=== PATIENT | male | born 1980 | race Caucasian/White ===

== ENCOUNTER 2019-07-05 13:42 | Day surgery (SDC) | payer OTHER ==
[2019-07-05] MEDS ORDERED: Marcaine 0.5% SDV 10 ML IJ ONE (13:43)
[2019-07-05] MEDS ORDERED: Depo-Medrol 40 MG/ML IM ONE (13:43)
[2019-07-05] MEDS ORDERED: Xylocaine 1% Vial 30 ML PF IJ ONE (13:43)
--- NOTE | 2019-07-05 15:11 | XRAY ---
Indication: Right SI joint injection. Intraoperative fluoroscopy was provided for 10 seconds. 2 digital spot images submitted for interpretation demonstrate posterior needle tip projecting over the inferior right SI joint. Correlate with intraoperative findings/report.
--- NOTE | 2019-07-05 15:41 | XRAY ---
10 seconds fluoroscopy time in surgery for right SI joint injection.
== END 2019-07-05 14:50 | disposition home or self-care (01) ==
LOC: SDC-PAIN 13:42
PROVIDERS: ATTEND Psychiatry & Neurology Pain Medicine
DX: M46.1 Sacroiliitis, not elsewhere classified (principal); I10 Essential (primary) hypertension; F41.9 Anxiety disorder, unspecified
CPT/HCPCS: 27096; 72020; 77002; J1030; J2001; G0260

== ENCOUNTER 2019-08-30 15:29 | Day surgery (SDC) | payer OTHER ==
[2019-08-30] MEDS ORDERED: Xylocaine 1% Vial 30 ML PF IJ ONE (15:30)
[2019-08-30] MEDS ORDERED: Marcaine 0.5% SDV 10 ML IJ ONE (15:30)
[2019-08-30] MEDS ORDERED: Depo-Medrol 40 MG/ML IM ONE (15:30)
--- NOTE | 2019-08-30 17:08 | XRAY ---
Indication: Right hip injection. Intraoperative fluoroscopy was provided for 41 seconds. 2 digital spot images submitted for interpretation demonstrates needle tip just lateral to the right femur head. Small amount of contrast injected for needle tip placement. Correlate with intraoperative findings/report.
--- NOTE | 2019-08-30 17:11 | XRAY ---
41 seconds of fluoroscopy was used in surgery for a right intra-articular hip injection.
== END 2019-08-30 16:47 | disposition home or self-care (01) ==
LOC: SDC-PAIN 15:29
PROVIDERS: ATTEND Psychiatry & Neurology Pain Medicine
DX: M16.11 Unilateral primary osteoarthritis, right hip (principal); I10 Essential (primary) hypertension; D16.8 Benign neoplasm of pelvic bones, sacrum and coccyx; F41.9 Anxiety disorder, unspecified; Z79.899 Other long term (current) drug therapy
CPT/HCPCS: 20610; 73501; 77002; J1030; J2001; Q9966

== ENCOUNTER 2019-11-01 10:42 | Day surgery (SDC) | payer OTHER ==
[2019-11-01] MEDS ORDERED: Xylocaine-Mpf 2% 5 Ml Vial IJ ONE (10:43)
[2019-11-01] MEDS ORDERED: Depo-Medrol 40 MG/ML IM ONE (10:43)
[2019-11-01] MEDS ORDERED: DIPRIVAN 200 MG/20 ML IV ONE (11:15)
[2019-11-01] MEDS ORDERED: Ketamine HCl 50 MG/ML ONE (11:15)
[2019-11-01] MEDS ORDERED: Lactated Ringers 1,000 ML IV ONE (13:10)
--- NOTE | 2019-11-01 13:20 | XRAY ---
Indication: Right L4-S1 MBB. Intraoperative fluoroscopy was provided for 5 seconds. Single digital spot image submitted for interpretation demonstrates posterior needle tips projecting over the expected course of the right L4-S1 nerve roots. Correlate with intraoperative findings/report.
--- NOTE | 2019-11-01 13:43 | XRAY ---
5 seconds fluoroscopy time in surgery for right L4-S1 MBB.
== END 2019-11-01 11:45 | disposition home or self-care (01) ==
LOC: SDC-PAIN 10:42
PROVIDERS: ATTEND Psychiatry & Neurology Pain Medicine
DX: M47.816 Spondylosis without myelopathy or radiculopathy, lumbar region (principal); M47.817 Spondylosis without myelopathy or radiculopathy, lumbosacral region; I10 Essential (primary) hypertension; D16.8 Benign neoplasm of pelvic bones, sacrum and coccyx; F41.9 Anxiety disorder, unspecified
CPT/HCPCS: 64493; 64494; 72020; 77002; J1030; J2704

== ENCOUNTER 2019-12-13 11:59 | Day surgery (SDC) | payer OTHER ==
[2019-12-13] MEDS ORDERED: Depo-Medrol 40 MG/ML IM ONE (12:00)
[2019-12-13] MEDS ORDERED: Marcaine 0.5% SDV 10 ML IM ONE (12:00)
[2019-12-13] MEDS ORDERED: Ketamine HCl 50 MG/ML ONE (12:51)
[2019-12-13] MEDS ORDERED: DIPRIVAN 200 MG/20 ML IV ONE (12:51)
[2019-12-13] MEDS ORDERED: Lactated Ringers 1,000 ML IV ONE (13:44)
--- NOTE | 2019-12-13 15:11 | XRAY ---
5 seconds fluoroscopy time in surgery for right L4-S1 MBB.
== END 2019-12-13 13:17 | disposition home or self-care (01) ==
LOC: SDC-PAIN 11:59
PROVIDERS: ATTEND Psychiatry & Neurology Pain Medicine
DX: M47.816 Spondylosis without myelopathy or radiculopathy, lumbar region (principal); M47.817 Spondylosis without myelopathy or radiculopathy, lumbosacral region; I10 Essential (primary) hypertension; F41.9 Anxiety disorder, unspecified; Z79.899 Other long term (current) drug therapy
CPT/HCPCS: 64493; 64494; 72020; 77002; J1030; J2704

== ENCOUNTER 2020-03-27 10:29 | Day surgery (SDC) | payer OTHER ==
[~2020-03-27 10:29] MED LIST: DIPRIVAN 200 MG/20 ML IV ONE; Ketamine HCl 50 MG/ML ONE
[2020-03-27] MEDS ORDERED: Xylocaine 1% Vial 30 ML PF IJ ONE (10:30)
[2020-03-27] MEDS ORDERED: Depo-Medrol 40 MG/ML IM ONE (10:30)
[2020-03-27] MEDS ORDERED: Marcaine 0.5% SDV 10 ML IJ ONE (10:30)
--- NOTE | 2020-03-27 12:35 | XRAY ---
Indication: Right L4-S1 RFA. Intraoperative fluoroscopy was provided for 15 seconds. 3 digital spot images submitted for interpretation demonstrates posterior needle tips projecting over the expected course of the right L4-S1 nerve roots. Correlate with intraoperative findings/report.
--- NOTE | 2020-03-27 12:39 | XRAY ---
15 seconds fluoroscopy time in surgery for right L4-S1 RFA.
[2020-03-27] MEDS ORDERED: Lactated Ringers 1,000 ML IV ONE (16:36)
== END 2020-03-27 12:17 | disposition home or self-care (01) ==
LOC: SDC-PAIN 10:29
PROVIDERS: ATTEND Psychiatry & Neurology Pain Medicine
DX: M47.816 Spondylosis without myelopathy or radiculopathy, lumbar region (principal); D16.8 Benign neoplasm of pelvic bones, sacrum and coccyx; I10 Essential (primary) hypertension; F41.9 Anxiety disorder, unspecified; Z79.899 Other long term (current) drug therapy
CPT/HCPCS: 64635; 64636; 72100; 77002; J1030; J2001; J2704

== ENCOUNTER 2022-04-16 09:31 | Emergency (ER) | payer OTHER ==
[2022-04-16] MEDS ORDERED: PROTONIX 40 MG IV IV ONE ×2 (09:49→09:57)
[2022-04-16] MEDS ORDERED: Sodium Chloride 0.9% 1000 ML 1,000 ML IV STA (09:49)
[2022-04-16] MEDS ORDERED: GI COCKTAIL 45 ML (Maalox/Lidocaine) PO ONE (09:49)
[2022-04-16] MEDS ORDERED: MORPHINE SULFATE 4 MG INJ IV ONE (09:49)
[2022-04-16] MEDS ORDERED: Zofran 4 MG/2 ML VIAL IV ONE (09:51)
[2022-04-16] MEDS ORDERED: MORPHINE SULFATE 4 MG INJ ONE (09:57)
[2022-04-16] MEDS ORDERED: Zofran 4 MG/2 ML VIAL ONE (09:57)
[2022-04-16] MEDS ORDERED: MAALOX ES 30 ML UNIT DOSE ONE (09:58)
[2022-04-16] MEDS ORDERED: XYLOCAINE VISCOUS 2% 15 ML CUP ONE (09:58)
[2022-04-16] MEDS ORDERED: Sodium Chloride 0.9% 1000 ML 1,000 ML ONE (09:58)
--- NOTE | 2022-04-16 10:00 | ERPHSYRPT ---
- History of Present Illness Time Seen by Provider: 04/16/22 09:49 Historian: patient Exam Limitations: no limitations Patient Subjective Stated Complaint: PT states "I was at work this morning around 430 am and my chest started to hurt and I am not getting any better. The pain is getting worse and worse." Triage Nursing Assessment: PT presented alert and oriented X 3, skin pwd Pt ambulates with an upright steady gait, able to speak in clear full sentences. Pt in no apparent respiratory distress. Pt keeps lifting his legs up to his chest to relieve pressure. Physician History: 41 years old male with history of hypertension presented to the ER with chief complaint of epigastric pain sudden onset around 4:30 in the morning and gradually worsening, constant, nonradiating and having some retrosternal burning sensation as well. Patient reports associated nausea and 2-3 episodes of nonprojectile, nonbilious vomiting without hematemesis. Denies any chest pain or shortness of breath otherwise. Patient reports he had a similar episode last week when he was on vacation and had some kind of drink which made it come on. Last night he had a [place] food, gave him Gas-X and Nexium which did not make him feel much better. Timing/Duration: hour(s) (5), constant, gradual onset, worse Activities at Onset: activity Quality: burning, dullness Abdominal Pain Onset Location: epigastric Pain Radiation: chest Severity of Pain-Max: moderate Severity of Pain-Current: moderate Modifying Factors: Improves With: nothing Associated Symptoms: nausea, vomiting Previous symptoms: same symptoms as today Allergies/Adverse Reactions: No Known Drug Allergies Allergy (Verified 04/16/22 09:38) Home Medications: Lisinopril/Hydrochlorothiazide [Lisinopril-Hctz 20-25 mg Tab] 1 each PO DAILY 04/16/22 [History] Sertraline HCl 50 mg [Zoloft 50 mg Tablet] 50 mg PO DAILY 04/16/22 [History] Hx Tetanus, Diphtheria Vaccination/Date Given: No Hx Influenza Vaccination/Date Given: No Hx Pneumococcal Vaccination/Date Given: No Immunizations Up to Date: Yes Travel Risk - International Travel Have you traveled outside of the country in past 3 weeks: No - Coronavirus Screening Are you exhibiting any of the following symptoms?: No Close contact with a COVID-19 positive Pt in past 14-21 Days: No - Vaccine Status Have you recieved a Covid-19 vaccination: Yes Enrollment Manager: Pfizer - Vaccination Dates Date of 2cond Vaccination (if applicable): 2020 - Review of Systems Constitutional: No Symptoms Eyes: No Symptoms Ears, Nose, & Throat: No Symptoms Respiratory: No Symptoms Cardiac: Chest Pain Abdominal/Gastrointestinal: Abdominal Pain, Nausea, Vomiting Genitourinary Symptoms: No Symptoms Musculoskeletal: No Symptoms Skin: No Symptoms Neurological: No Symptoms Psychological: Anxiety Endocrine: No Symptoms Hematologic/Lymphatic: No Symptoms Immunological/Allergic: No Symptoms - Past Medical History Pertinent Past Medical History: Yes Neurological History: No Pertinent History Cardiac History: Hypertension Respiratory History: No Pertinent History Endocrine Medical History: No Pertinent History Musculoskeletal History: Osteoarthritis Other Medical History: HX LEFT ROTATOR CUFF REPAIR 2020, OSTEOCHONDROMA REMOVAL RIGHT FEMUR PROXIMAL 2018 - Past Surgical History Past Surgical History: Yes Other Surgical History: l4 l5 fusion. right hip. bicep and tendon in shoulder. - Social History Smoking Status: Never smoker Exposure to second hand smoke: No Drug Use: none Patient Lives Alone: No - Nursing Vital Signs Nursing Vital Signs: Initial Vital Signs Temperature 98.5 F 04/16/22 09:32 Pulse Rate 74 04/16/22 09:32 Respiratory Rate 20 04/16/22 09:32 Blood Pressure 183/117 04/16/22 09:32 O2 Sat by Pulse Oximetry 100 04/16/22 09:32 Pain Scale Pain Intensity 2 - Physical Exam General Appearance: no apparent distress Eye Exam: PERRL/EOMI Ears, Nose, Throat Exam: normal ENT inspection Neck Exam: normal inspection, full range of motion Respiratory Exam: normal breath sounds, lungs clear Cardiovascular Exam: regular rate/rhythm, normal heart sounds Gastrointestinal/Abdomen Exam: soft, normal bowel sounds, tenderness (Epigastrium/right upper quadrant), guarding, No rebound Back Exam: normal inspection, normal range of motion, No CVA tenderness Extremity Exam: normal inspection, normal range of motion Neurologic Exam: alert, oriented x 3, cooperative Skin Exam: normal color SpO2 Interpretation: normal SpO2: 100 O2 Delivery: Room Air Ordered Tests: Active Orders 24 hr Category Date Time Status EKG-ER Only STAT Care 04/16/22 09:49 Completed IV Insertion STAT Care 04/16/22 09:49 Completed NPO (ED) STAT Care 04/16/22 09:49 Completed ABDOMEN AND PELVIS W/0 CONTRAS [CT] Stat Exams 04/16/22 09:50 Completed CHEST 1 VIEW (PORTABLE) Stat Exams 04/16/22 09:50 Completed AMYLASE Stat Lab 04/16/22 09:45 Completed CBC W DIFF Stat Lab 04/16/22 09:45 Completed CMP Stat Lab 04/16/22 09:45 Completed LIPASE Stat Lab 04/16/22 09:45 Completed TROPONIN Q3H Lab 04/16/22 09:45 Completed TROPONIN Q3H Lab 04/16/22 12:00 Completed UA W/RFX CULTURE Stat Lab 04/16/22 11:52 Completed Medication Summary Discontinued Medications Generic Name Dose Route Start Last Admin Trade Name Freq PRN Reason Stop Dose Admin Al Hydrox/Mg Hydrox/Simethicone Confirm 04/16/22 09:58 Mag Hydrox/Al Hydrox/Simeth 30 Ml Udcup Administered 04/16/22 09:59 Dose 30 ml .ROUTE .STK-MED ONE Sodium Chloride 1,000 mls @ 999 mls/hr 04/16/22 09:49 04/16/22 11:42 Sodium Chloride 0.9% 1000 Ml IV 04/16/22 10:49 Infused .Q1H1M STA Infusion Sodium Chloride Confirm 04/16/22 09:58 Sodium Chloride 0.9% 1000 Ml Administered 04/16/22 09:59 Dose 1,000 mls @ ud .ROUTE .STK-MED ONE Lidocaine HCl Confirm 04/16/22 09:58 Lidocaine Hcl 2% Viscous 15 Ml Udcup Administered 04/16/22 09:59 Dose 15 ml .ROUTE .STK-MED ONE Magnesium Hydroxide 45 ml 04/16/22 09:49 04/16/22 10:00 Mag Hydrx/Alum Hyd/Simeth/Lido 45 Ml Bottle PO 04/16/22 09:50 45 ml STAT ONE Administration Morphine Sulfate 4 mg 04/16/22 09:49 04/16/22 10:00 Morphine Sulfate 4 Mg/Ml Injection IV 04/16/22 09:50 4 mg STAT ONE Administration Morphine Sulfate Confirm 04/16/22 09:57 Morphine Sulfate 4 Mg/Ml Injection Administered 04/16/22 09:58 Dose 4 mg .ROUTE .STK-MED ONE Ondansetron HCl 4 mg 04/16/22 09:51 04/16/22 10:00 Ondansetron Hcl 4 Mg/2 Ml Vial IV 04/16/22 09:52 4 mg STAT ONE Administration Ondansetron HCl Confirm 04/16/22 09:57 Ondansetron Hcl 4 Mg/2 Ml Vial Administered 04/16/22 09:58 Dose 4 mg .ROUTE .STK-MED ONE Pantoprazole Sodium 40 mg 04/16/22 09:49 04/16/22 10:00 Pantoprazole 40 Mg Vial IV 04/16/22 09:50 40 mg STAT ONE Administration Pantoprazole Sodium Confirm 04/16/22 09:57 Pantoprazole 40 Mg Vial Administered 04/16/22 09:58 Dose 40 mg IV .STK-MED ONE Lab/Rad Data: Laboratory Result Diagrams 04/16/22 09:45 04/16/22 09:45 Laboratory Results 04/16/22 04/16/22 04/16/22 Range/Units 12:00 11:52 09:45 WBC (4.0-10.5) x10^3/uL RBC (4.1-5.6) x10^6/uL Hgb (12.5-18.0) g/dL Hct (42-50) % MCV (78-100) fL MCH (26-32) pg MCHC (32-36) g/dL RDW (11.5-14.0) % Plt Count (150-450) x10^3/uL MPV (7.5-11.0) fL Gran % (36.0-66.0) % Immature Gran % (Auto) (0.00-0.4) % Nucleat RBC Rel Count (0.00-0.1) % Eos # (Auto) (0-0.5) x10^3/uL Immature Gran # (Auto) (0.00-0.03) x10^3u/L Absolute Lymphs (auto) (1.0-4.6) x10^3/uL Absolute Monos (auto) (0.0-1.3) x10^3/uL Absolute Nucleated RBC (0.00-0.01) x10^3u/L Lymphocytes % (24.0-44.0) % Monocytes % (0.0-12.0) % Eosinophils % (0.00-5.0) % Basophils % (0.0-0.4) % Absolute Granulocytes (1.4-6.9) x10^3/uL Basophils # (0-0.4) x10^3/uL Sodium (137-145) mmol/L Potassium (3.5-5.1) mmol/L Chloride (98-107) mmol/L Carbon Dioxide (22-30) mmol/L Anion Gap (5-15) MEQ/L BUN (9-20) mg/dL Creatinine (0.66-1.25) mg/dL Estimated GFR ML/MIN Glucose (74-106) mg/dL Calcium (8.4-10.2) mg/dL Total Bilirubin (0.2-1.3) mg/dL AST (17-59) U/L ALT (0-50) U/L Alkaline Phosphatase (38-126) U/L Troponin I < 0.012 < 0.012 (0.000-0.034) ng/mL Serum Total Protein (6.3-8.2) g/dL Albumin (3.5-5.0) g/dL Amylase (30-110) U/L Lipase (23-300) U/L Urinalys Dipstick Clnc MAIN LAB Urine Color YELLOW (YELLOW) Urine Appearance CLEAR (CLEAR) Urine pH 6.5 (5-6) Ur Specific Rowe 1.010 (1.005-1.025) POC Urine Protein Conf NEGATIVE (Negative) Urine Ketones NEGATIVE (NEGATIVE) Urine Nitrite NEGATIVE (NEGATIVE) Urine Bilirubin NEGATIVE (NEGATIVE) Urine Urobilinogen 0.2 (0-1) mg/dL Urine Leukocytes NEGATIVE (NEGATIVE) Urine WBC (Auto) 0-2 (0-5) /HPF Urine RBC (Auto) 0-2 (0-2) /HPF Urine RBC TRACE-INTACT (0-5) Chiki/ul Urine Mucus (Auto) SLIGHT (NEGATIVE) /HPF Ur Culture Indicated? NO Urine Glucose NEGATIVE (NEGATIVE) mg/dL 04/16/22 04/16/22 Range/Units 09:45 09:45 WBC 13.7 H (4.0-10.5) x10^3/uL RBC 4.98 (4.1-5.6) x10^6/uL Hgb 15.7 (12.5-18.0) g/dL Hct 45.4 (42-50) % MCV 91.2 (78-100) fL MCH 31.5 (26-32) pg MCHC 34.6 (32-36) g/dL RDW 12.8 (11.5-14.0) % Plt Count 319 (150-450) x10^3/uL MPV 8.7 (7.5-11.0) fL Gran % 60.1 (36.0-66.0) % Immature Gran % (Auto) 0.6 H (0.00-0.4) % Nucleat RBC Rel Count 0.0 (0.00-0.1) % Eos # (Auto) 0.25 (0-0.5) x10^3/uL Immature Gran # (Auto) 0.08 H (0.00-0.03) x10^3u/L Absolute Lymphs (auto) 3.79 (1.0-4.6) x10^3/uL Absolute Monos (auto) 1.24 (0.0-1.3) x10^3/uL Absolute Nucleated RBC 0.00 (0.00-0.01) x10^3u/L Lymphocytes % 27.7 (24.0-44.0) % Monocytes % 9.1 (0.0-12.0) % Eosinophils % 1.8 (0.00-5.0) % Basophils % 0.7 (0.0-0.4) % Absolute Granulocytes 8.21 H (1.4-6.9) x10^3/uL Basophils # 0.10 (0-0.4) x10^3/uL Sodium 135 L (137-145) mmol/L Potassium 3.7 (3.5-5.1) mmol/L Chloride 98 (98-107) mmol/L Carbon Dioxide 26 (22-30) mmol/L Anion Gap 14.1 (5-15) MEQ/L BUN 19 (9-20) mg/dL Creatinine 1.15 (0.66-1.25) mg/dL Estimated GFR > 60.0 ML/MIN Glucose 124 H (74-106) mg/dL Calcium 10.7 H (8.4-10.2) mg/dL Total Bilirubin 1.00 (0.2-1.3) mg/dL AST 81 H (17-59) U/L ALT 124 H (0-50) U/L Alkaline Phosphatase 102 (38-126) U/L Troponin I (0.000-0.034) ng/mL Serum Total Protein 7.9 (6.3-8.2) g/dL Albumin 4.6 (3.5-5.0) g/dL Amylase 79 (30-110) U/L Lipase 110 (23-300) U/L Urinalys Dipstick Clnc Urine Color (YELLOW) Urine Appearance (CLEAR) Urine pH (5-6) Ur Specific Rowe (1.005-1.025) POC Urine Protein Conf (Negative) Urine Ketones (NEGATIVE) Urine Nitrite (NEGATIVE) Urine Bilirubin (NEGATIVE) Urine Urobilinogen (0-1) mg/dL Urine Leukocytes (NEGATIVE) Urine WBC (Auto) (0-5) /HPF Urine RBC (Auto) (0-2) /HPF Urine RBC (0-5) Chiki/ul Urine Mucus (Auto) (NEGATIVE) /HPF Ur Culture Indicated? Urine Glucose (NEGATIVE) mg/dL - Progress Progress: improved, re-examined Progress Note: 04/16/22 12:47 41 years old is evaluated for epigastric pain. EKG showed normal sinus rhythm without any acute ischemic changes given GI cocktail, Protonix along with morphine, on reevaluation pain is completely resolved. No peritoneal signs. Work-up showed white count of 13 and chemistry showing some hyper calcium [place] a nd mildly elevated liver enzymes CT abdomen pelvis finding consistent with hepatomegaly. Negative troponin x2. Low risk for CAD, do not think needs any other further work-up in the ER, needs to be admitted. Pain seems to be related to gastritis/acid reflux and will put him on Protonix and Carafate, outpatient follow-up recommended. Discussed signs symptoms of worsening needing return to ER which he seems understanding Counseled pt/family regarding: lab results, diagnosis, need for follow-up, rad results - Departure Departure Disposition: Home Clinical Impression: GERD with esophagitis Condition: Stable Critical Care Time: No Referrals: DENAE MATTA MD [CONSULTING PHYSICIAN] - Follow Up with PCP/3 days ANTONI AGUILAR [CONSULTING PHYSICIAN] - Follow up/PCP as directed (Call for appointment for reevaluation) Instructions: Angina (DC), Acid Reflux and Gastroesophageal Reflux Disease in Adults Prescriptions: Sucralfate 1 gm [Carafate 1 GM] 1 g PO ACHS #20 tablet PANTOPRAZOLE 40 mg Tablet [Protonix 40MG Tablet] 40 mg PO QAM #30 tab
[2022-04-16 10:06] LABS: Absolute Neutrophil Ct (ANC) 8.21 x10^3/uL (1.4-6.9); Eosinophil % 1.8 % (0.00-5.0); Eosinophil (Absolute #) 0.25 x10^3/uL (0-0.5); Hematocrit 45.4 % (42-50); Hemoglobin 15.7 g/dL (12.5-18.0); Lymphocyte (Absolute #) 3.79 x10^3/uL (1.0-4.6); Lymphocytes % 27.7 % (24.0-44.0); Mean Cell Volume 91.2 fL (78-100); Mean Corpuscular Hemoglobin 31.5 pg (26-32); Mean Corpuscular Hgb Concent. 34.6 g/dL (32-36); Mean Platelet Volume 8.7 fL (7.5-11.0); Monocyte (Absolute #) 1.24 x10^3/uL (0.0-1.3); Monocytes % 9.1 % (0.0-12.0); Neutrophil % 60.1 % (36.0-66.0); Platelet Count 319 x10^3/uL (150-450); Red Blood Count 4.98 x10^6/uL (4.1-5.6); Red Cell Distribution Width 12.8 % (11.5-14.0); White Blood Count 13.7 x10^3/uL (4.0-10.5)
[2022-04-16 10:18] LABS: ALBUMIN 4.6 g/dL (3.5-5.0); ALKALINE PHOSPHATASE 102 U/L (38-126); AMYLASE 79 U/L (30-110); ANION GAP 14.1 MEQ/L (5-15); BLOOD UREA NITROGEN 19 mg/dL (9-20); CHLORIDE 98 mmol/L (98-107); Calcium 10.7 mg/dL (8.4-10.2); Carbon Dioxide 26 mmol/L (22-30); Creatinine 1 1.15 mg/dL (0.66-1.25); EST GLOMERULAR FILTRATION RATE > 60.0 ML/MIN; Glucose 124 mg/dL (74-106); LIPASE 110 U/L (23-300); Potassium 3.7 mmol/L (3.5-5.1); SGOT/AST 81 U/L (17-59); SGPT/ALT 124 U/L (0-50); SODIUM 135 mmol/L (137-145); Total Protein 7.9 g/dL (6.3-8.2)
--- NOTE | 2022-04-16 10:53 | XRAY ---
Indication: Abdomen pain, vomiting, and diarrhea. Multiple contiguous axial images obtained through the abdomen and pelvis without contrast. Comparison: None Lung bases clear. Heart not enlarged. Noncontrasted stomach and bowel loops appear nonobstructed with normal appendix. Mild scattered colonic diverticulosis without diverticulitis. No free fluid/air. Diffuse fatty hepatomegaly measuring 20.9 cm. Remaining liver, gallbladder, pancreas, spleen, adrenal glands, kidneys, ureters, bladder, and aorta are unremarkable for noncontrast exam. Osseous structures intact with L4-L5 fusion with intact bilateral posterior fusion hardware/intervertebral spacer. No ventral or inguinal hernias. Impression: 1. Colonic diverticulosis, fatty hepatomegaly, and chronic bony findings. 2. Remaining CT abdomen/pelvis without contrast exam is negative.
--- NOTE | 2022-04-16 11:04 | XRAY ---
Indication: Epigastric pain. Comparison: None Portable chest demonstrates normal heart, lungs, and bony thorax.
[2022-04-16 12:02] LABS: Mucus SLIGHT /HPF (NEGATIVE); RBC 0-2 /HPF (0-2); WBC 0-2 /HPF (0-5)
[2022-04-16 12:04] LABS: Appearance CLEAR (CLEAR); Bilirubin NEGATIVE (NEGATIVE); Glucose NEGATIVE (NEGATIVE); Ketones NEGATIVE (NEGATIVE); Nitrite NEGATIVE (NEGATIVE); Ph 6.5 (5-6); Protein,Urine Dip NEGATIVE (Negative); RBC TRACE-INTACT Ery/ul (0-5); Urine Cultured Indicated? NO; Urobilinogen 0.2 mg/dL (0-1)
[2022-04-16 12:05] LABS: Dipstick done @ ? MAIN LAB
[2022-04-16 13:08] VITALS: BP 136/104; PULSE 78
[2022-04-16 22:28] VITALS: O2SAT 100
== END 2022-04-16 13:09 | disposition home or self-care (01) ==
LOC: ED 09:31
DX: K21.00 Gastro-esophageal reflux disease with esophagitis, without bleeding (principal); R10.13 Epigastric pain; R11.2 Nausea with vomiting, unspecified; I10 Essential (primary) hypertension; Z79.899 Other long term (current) drug therapy
CPT/HCPCS: 36000; 36415; 71045; 74176; 80053; 81015; 82150; 83690; 84484; 85025; 93005; 96360; 96374; 96375; 99284; J2270; J2405; A9270-GY

== ENCOUNTER 2023-10-07 22:01 | Inpatient (IN) | payer OTHER ==
[2023-10-07] MEDS ORDERED: MORPHINE SULFATE 4 MG INJ IV ONE (22:45)
[2023-10-07] MEDS ORDERED: Sodium Chloride 0.9% 1000 ML 1,000 ML IV STA (22:45)
[2023-10-07] MEDS ORDERED: Zofran 4 MG/2 ML VIAL IV ONE (22:45)
--- NOTE | 2023-10-07 22:48 | ERPHSYRPT ---
- History of Present Illness Time Seen by Provider: 10/07/23 22:35 Historian: patient Exam Limitations: no limitations Patient Subjective Stated Complaint: pt states he has been having severe upper abd pain since approx noon today. mild upper abd pain this morning Triage Nursing Assessment: pt alert and oriented, answers questions approp. pt ambualtes into room with steady gait notred. respriations nonlabored. skin warm and dry. abd soft with bowel sounds present x4. pt reports tenderness in epigastric area with light palpation. Physician History: 43 years old male with history of hypertension, pancreatitis presented in the ER with chief complaint of epigastric pain more. Intensity sharp, radiating to the back without any significant aggravating or relieving factors. Reports associated mild nausea but no vomiting. No chest pain palpitations or shortness of breath. Reports symptoms similar to last time when he had pancreatitis. Allergies/Adverse Reactions: No Known Drug Allergies Allergy (Verified 10/07/23 22:13) Home Medications: Lisinopril/Hydrochlorothiazide [Lisinopril-Hctz 20-12.5 mg Tab] 2 each PO DAILY 10/07/23 [History] Hx Tetanus, Diphtheria Vaccination/Date Given: Yes Hx Influenza Vaccination/Date Given: Yes Hx Pneumococcal Vaccination/Date Given: No Immunizations Up to Date: Yes Travel Risk - International Travel Have you traveled outside of the country in past 3 weeks: No - Coronavirus Screening Are you exhibiting any of the following symptoms?: No Close contact with a COVID-19 positive Pt in past 14-21 Days: No - Vaccine Status Have you recieved a Covid-19 vaccination: Yes Building Maintenance Worker: [employer] - Vaccination Dates Date of 2cond Vaccination (if applicable): unknown Dates if Unknown: ? - Review of Systems Constitutional: No Symptoms Eyes: No Symptoms Ears, Nose, & Throat: No Symptoms Respiratory: No Symptoms Cardiac: No Symptoms Abdominal/Gastrointestinal: Abdominal Pain, Nausea Genitourinary Symptoms: No Symptoms Musculoskeletal: No Symptoms Skin: No Symptoms Neurological: No Symptoms Hematologic/Lymphatic: No Symptoms - Past Medical History Pertinent Past Medical History: Yes Neurological History: No Pertinent History Cardiac History: Hypertension Respiratory History: No Pertinent History Endocrine Medical History: No Pertinent History Musculoskeletal History: Osteoarthritis GI Medical History: GERD, Pancreatitis History: No Pertinent History Psycho-Social History: No Pertinent History Male Reproductive Disorders: No Pertinent History Other Medical History: HX LEFT ROTATOR CUFF REPAIR 2020, OSTEOCHONDROMA REMOVAL RIGHT FEMUR PROXIMAL 2018 - Past Surgical History Past Surgical History: Yes Neuro Surgical History: No Pertinent History Cardiac: No Pertinent History Respiratory: No Pertinent History Gastrointestinal: No Pertinent History Genitourinary: No Pertinent History Musculoskeletal: Other Male Surgical History: No Pertinent History Other Surgical History: l4 l5 fusion. right hip. bicep and tendon in shoulder. back surgery - Social History Smoking Status: Never smoker Exposure to second hand smoke: No Drug Use: none Patient Lives Alone: No - Nursing Vital Signs Nursing Vital Signs: Initial Vital Signs Temperature 99.1 F 10/07/23 22:02 Pulse Rate 68 10/07/23 22:02 Respiratory Rate 16 10/07/23 22:02 Blood Pressure 157/103 10/07/23 22:02 O2 Sat by Pulse Oximetry 99 10/07/23 22:02 Pain Scale Pain Intensity 5 - Physical Exam General Appearance: no apparent distress, alert Eye Exam: PERRL/EOMI Ears, Nose, Throat Exam: normal ENT inspection Neck Exam: normal inspection, non-tender, supple, full range of motion Respiratory Exam: normal breath sounds, lungs clear Cardiovascular Exam: regular rate/rhythm, normal heart sounds Gastrointestinal/Abdomen Exam: soft, normal bowel sounds, tenderness (Epigastric), guarding Back Exam: normal inspection, normal range of motion, No CVA tenderness Extremity Exam: normal inspection Neurologic Exam: alert, oriented x 3, cooperative Skin Exam: normal color SpO2 Interpretation: normal SpO2: 99 O2 Delivery: Room Air Ordered Tests: Medication Summary Discontinued Medications Generic Name Dose Route Start Last Admin Trade Name Freq PRN Reason Stop Dose Admin Hydrocodone Bitart/Acetaminophen 1 tab 10/09/23 09:00 10/09/23 11:22 Hydrocodone/Apap 5/325 1 Tab Tablet PO 10/14/23 08:59 1 tab Q4H PRN PRN Administration PAIN Diphenhydramine HCl 25 mg 10/09/23 03:15 10/09/23 03:18 Diphenhydramine Hcl 25 Mg Capsule PO 10/09/23 03:16 25 mg STAT ONE Administration Enoxaparin Sodium 40 mg 10/08/23 10:00 10/09/23 09:29 Enoxaparin Sodium 40 Mg/0.4 Ml Syringe SQ 11/07/23 09:59 40 mg DAILY LORETTA Administration Hydrochlorothiazide 25 mg 10/08/23 10:00 10/09/23 09:29 Hydrochlorothiazide 25 Mg Tablet PO 11/07/23 09:59 25 mg DAILY LORETTA Administration Hydromorphone HCl 1 mg 10/08/23 00:03 10/08/23 00:10 Hydromorphone 1 Mg/1ml Inj IV 10/08/23 00:04 1 mg STAT ONE Administration Hydromorphone HCl Confirm 10/08/23 00:09 Hydromorphone 1 Mg/1ml Inj Administered 10/08/23 00:10 Dose 1 mg .ROUTE .STK-MED ONE Hydromorphone HCl 1 mg 10/08/23 01:50 10/08/23 01:53 Hydromorphone 1 Mg/1ml Inj IV 10/08/23 01:51 1 mg STAT ONE Administration Hydromorphone HCl Confirm 10/08/23 01:52 Hydromorphone 1 Mg/1ml Inj Administered 10/08/23 01:53 Dose 1 mg .ROUTE .STK-MED ONE Hydromorphone HCl 1 mg 10/08/23 05:35 10/09/23 08:06 Hydromorphone 1 Mg/1ml Inj IV 10/13/23 05:34 1 mg Q4H PRN PRN Administration PAIN Sodium Chloride 1,000 mls @ 999 mls/hr 10/07/23 22:45 10/08/23 00:26 Sodium Chloride 0.9% 1000 Ml IV 10/07/23 23:45 Infused .Q1H1M STA Infusion Sodium Chloride Confirm 10/07/23 23:21 Sodium Chloride 0.9% 1000 Ml Administered 10/07/23 23:22 Dose 1,000 mls @ ud .ROUTE .STK-MED ONE Sodium Chloride 1,000 mls @ 125 mls/hr 10/08/23 01:00 10/09/23 02:12 Sodium Chloride 0.9% 1000 Ml IV 11/07/23 00:59 125 mls/hr .Q8H LORETTA Administration Lisinopril 40 mg 10/08/23 10:00 10/09/23 09:29 Lisinopril 20 Mg Tablet PO 11/07/23 09:59 40 mg DAILY LORETTA Administration Morphine Sulfate 4 mg 10/07/23 22:45 10/07/23 23:25 Morphine Sulfate 4 Mg/Ml Injection IV 10/07/23 22:46 4 mg STAT ONE Administration Morphine Sulfate Confirm 10/07/23 23:21 Morphine Sulfate 4 Mg/Ml Injection Administered 10/07/23 23:22 Dose 4 mg .ROUTE .STK-MED ONE Morphine Sulfate 2 mg 10/08/23 05:01 Morphine Sulfate 2 Mg/Ml Inj IV 10/13/23 05:00 Q4H PRN PRN PAIN Ondansetron HCl 4 mg 10/07/23 22:45 10/07/23 23:27 Ondansetron Hcl 4 Mg/2 Ml Vial IV 10/07/23 22:46 4 mg STAT ONE Administration Ondansetron HCl Confirm 10/07/23 23:21 Ondansetron Hcl 4 Mg/2 Ml Vial Administered 10/07/23 23:22 Dose 4 mg .ROUTE .STK-MED ONE Ondansetron HCl 4 mg 10/08/23 05:02 Ondansetron Hcl 4 Mg/2 Ml Vial IV 11/07/23 05:01 Q6H PRN PRN NAUSEA/VOMITING Pantoprazole Sodium 40 mg 10/09/23 10:00 10/09/23 09:29 Protonix (Pantoprazole) 40 Mg Tablet PO 11/08/23 09:59 40 mg QAM LORETTA Administration Lab/Rad Data: Laboratory Result Diagrams 10/07/23 22:55 10/07/23 22:55 Laboratory Results 10/08/23 10/07/23 10/07/23 Range/Units 00:06 22:55 22:55 WBC 9.2 (4.0-10.5) x10^3/uL RBC 4.92 (4.1-5.6) x10^6/uL Hgb 15.6 (12.5-18.0) g/dL Hct 45.7 (42-50) % MCV 92.9 (78-100) fL MCH 31.7 (26-32) pg MCHC 34.1 (32-36) g/dL RDW 12.2 (11.5-14.0) % Plt Count 317 (150-450) x10^3/uL MPV 8.8 (7.5-11.0) fL Gran % 70.2 H (36.0-66.0) % Immature Gran % (Auto) 0.4 (0.00-0.4) % Nucleat RBC Rel Count 0.0 (0.00-0.1) % Eos # (Auto) 0.19 (0-0.5) x10^3/uL Immature Gran # (Auto) 0.04 H (0.00-0.03) x10^3u/L Absolute Lymphs (auto) 1.75 (1.0-4.6) x10^3/uL Absolute Monos (auto) 0.73 (0.0-1.3) x10^3/uL Absolute Nucleated RBC 0.00 (0.00-0.01) x10^3u/L Lymphocytes % 19.1 L (24.0-44.0) % Monocytes % 8.0 (0.0-12.0) % Eosinophils % 2.1 (0.00-5.0) % Basophils % 0.2 (0.0-0.4) % Absolute Granulocytes 6.42 (1.4-6.9) x10^3/uL Basophils # 0.02 (0-0.4) x10^3/uL Sodium 131 L (137-145) mmol/L Potassium 3.7 (3.5-5.1) mmol/L Chloride 95 L (98-107) mmol/L Carbon Dioxide 27 (22-30) mmol/L Anion Gap 12.3 (5-15) MEQ/L BUN 11 (9-20) mg/dL Creatinine 0.81 (0.66-1.25) mg/dL Estimated GFR 112.9 ML/MIN Glucose 126 H (74-106) mg/dL Calcium 9.7 (8.4-10.2) mg/dL Total Bilirubin 0.90 (0.2-1.3) mg/dL AST 117 H (17-59) U/L ALT 165 H (0-50) U/L Alkaline Phosphatase 90 (38-126) U/L Troponin I < 0.012 (0.000-0.034) ng/mL Serum Total Protein 8.2 (6.3-8.2) g/dL Albumin 4.5 (3.5-5.0) g/dL Lipase 4299 H (23-300) U/L Urine Color Yellow (Yellow) Urine Appearance Clear (Clear) Urine pH 7.0 (4.6-8.0) Ur Specific [place] 1.010 (1.005-1.030) Urine Protein Negative (Negative) Urine Glucose (UA) Negative (Negative) mg/dL Urine Ketones Negative (Negative) Urine Blood Negative (Negative) Urine Nitrite Negative (Negative) Urine Bilirubin Negative (Negative) Urine Urobilinogen 0.2 (0.2) mg/dL Ur Leukocyte Esterase Negative (Negative) U Hyaline Cast (Auto) NONE SEEN (0-2) /LPF Urine Microscopic RBC 0-2 (0-5) /HPF Urine Microscopic WBC 0-2 (0-5) /HPF Ur Epithelial Cells None Seen (None Seen) /HPF Urine Bacteria None Seen (None Seen) /HPF Urine Culture Reflexed NO (NO) - Progress Progress: pain not gone completely, re-examined Progress Note: 10/08/23 00:49 43 years old is evaluated for upper abdominal pain with nausea. Patient has tenderness and minimal guarding in epigastric area. Given fluids and symptomatic treatment for pain, on reevaluation feeling better. Workup showed normal white count, chemistries showed lipase of 4300. CT abdomen pelvis without contrast shows finding consistent with acute pancreatitis. EKG is normal sinus rhythm with no acute ST elevation and negative troponins. Will call hospitalist Dr. Del Angel patient to be admitted. Will continue with conservative measures. 10/08/23 01:[address] Barrett hospitalist on-call, reviewed history, workup and agreed with admission. 10/08/23 01:05 Discussed with : Fortino Will see patient in: hospital (observation) Counseled pt/family regarding: lab results, diagnosis, rad results Medical Desision Making - Discussion of managment Care discussed with:: hospitalist Reviewed:: Test results Agreed on:: Treatment plan, place in obs Will see patient: in hospital - Diagnostic Testing Diagnostic test were ordered, analyzed, and reviewed by me: Yes Radiological Interpretation: Reviewed by me - Risk of complications The pt has a high risk of morbidity or mortality based on: Decision regarding hospitilization or escalation of hosp level of care - Departure Departure Disposition: Observation Clinical Impression: Acute pancreatitis Condition: Stable Critical Care Time: No
[2023-10-07 23:16] LABS: Absolute Neutrophil Ct (ANC) 6.42 x10^3/uL (1.4-6.9); BASOPHIL % 0.2 % (0.0-0.4); Basophil (Absolute #) 0.02 x10^3/uL (0-0.4); Eosinophil % 2.1 % (0.00-5.0); Eosinophil (Absolute #) 0.19 x10^3/uL (0-0.5); Hematocrit 45.7 % (42-50); Hemoglobin 15.6 g/dL (12.5-18.0); IMMATURE GRAN # 0.04 x10^3u/L (0.00-0.03); IMMATURE GRAN % 0.4 % (0.00-0.4); Lymphocyte (Absolute #) 1.75 x10^3/uL (1.0-4.6); Lymphocytes % 19.1 % (24.0-44.0); Mean Cell Volume 92.9 fL (78-100); Mean Corpuscular Hemoglobin 31.7 pg (26-32); Mean Corpuscular Hgb Concent. 34.1 g/dL (32-36); Mean Platelet Volume 8.8 fL (7.5-11.0); Monocyte (Absolute #) 0.73 x10^3/uL (0.0-1.3); Neutrophil % 70.2 % (36.0-66.0); Platelet Count 317 x10^3/uL (150-450); Red Blood Count 4.92 x10^6/uL (4.1-5.6); Red Cell Distribution Width 12.2 % (11.5-14.0); White Blood Count 9.2 x10^3/uL (4.0-10.5)
[2023-10-07] MEDS ORDERED: Zofran 4 MG/2 ML VIAL ONE (23:21)
[2023-10-07] MEDS ORDERED: MORPHINE SULFATE 4 MG INJ ONE (23:21)
[2023-10-07] MEDS ORDERED: Sodium Chloride 0.9% 1000 ML 1,000 ML ONE (23:21)
[2023-10-07 23:43] LABS: ALBUMIN 4.5 g/dL (3.5-5.0); ALKALINE PHOSPHATASE 90 U/L (38-126); ANION GAP 12.3 MEQ/L (5-15); BLOOD UREA NITROGEN 11 mg/dL (9-20); CHLORIDE 95 mmol/L (98-107); Calcium 9.7 mg/dL (8.4-10.2); Carbon Dioxide 27 mmol/L (22-30); Creatinine 1 0.81 mg/dL (0.66-1.25); EST GLOMERULAR FILTRATION RATE 112.9 ML/MIN; Glucose 126 mg/dL (74-106); Potassium 3.7 mmol/L (3.5-5.1); SGOT/AST 117 U/L (17-59); SGPT/ALT 165 U/L (0-50); SODIUM 131 mmol/L (137-145); TROPONIN < 0.012 ng/mL (0.000-0.034); Total Protein 8.2 g/dL (6.3-8.2)
[2023-10-07 23:57] LABS: LIPASE 4299 U/L (23-300)
[2023-10-08] MEDS ORDERED: Hydromorphone 1 mg/ml Injection IV ONE ×2 (00:03→01:50)
[2023-10-08] MEDS ORDERED: Hydromorphone 1 mg/ml Injection ONE ×2 (00:09→01:52)
--- NOTE | 2023-10-08 00:22 | XRAY ---
CLINICAL HISTORY:Upper abdominal pain COMPARISON:CT 06/21/2023 and US 06/22/2023 reviewed TECHNIQUE:CT scan of the abdomen and pelvis was performed without IV contrast. Coronal and sagittal reconstructive images were also obtained. FINDINGS: Sections of the lower thorax show Abdomen: Redemonstration of fat stranding around the head, neck, and uncinate process of pancreas with minimal peripancreatic fluid in this region, representing acute pancreatitis. Similar changes noted in a previous CT study dated 06/21/2023, with relatively lesser inflammatory changes and peripancreatic fluid at the present study, could represent residual changes or new events of acute pancreatitis at present. The liver is enlarged in size, measuring 19 cm, and shows diffuse hypoattenuation. Stable ill-defined small hypodense lesions were noted in both lobes of the liver, likely representing hepatic cyst/hemangioma. The intrahepatic biliary radicals and the bile ducts are normal. The gallbladder is distended. There is no evidence of wall thickening/ pericholecystic collection. The spleen, and adrenal glands are unremarkable. The kidneys are normal in size and shape. No calculi or hydronephrosis. The visualized small bowel loops are unremarkable. The appendix appears unremarkable. Fat attenuation noted in the submucosa of the descending colon could represent chronic colitis. There are few sub-centimetric mesenteric nodes. Pelvis: The urinary bladder is unremarkable. The rectosigmoid colon is unremarkable. The prostate appears unremarkable. No evidence of pelvic lymphadenopathy. Post L4-L5 lumbar fixation status with mild anterolisthesis of L4 over L5. IMPRESSION: 1. Redemonstration of fat stranding around the head, neck, and uncinate process of pancreas with minimal peripancreatic fluid in this region, representing acute pancreatitis. 2. Similar changes in the previous CT study dated 06/21/2023, with relatively lesser inflammatory changes and peripancreatic fluid at the present study, could represent residual changes or new events of acute pancreatitis at present. 3. Stable hepatomegaly with fatty changes and few hypodense lesions, likely representing hepatic cysts/ hemangioma. [facility] ER was called at [phone] at 11:14 PM [employer], 10/07/2023 and results were verbally communicated to ER nurse. Electronically Signed by: Kaiser Wynn MD. (10/08/2023 00:17:53 EST)
[2023-10-08 00:37] LABS: Appearance Clear (Clear); Bacteria None Seen /HPF (None Seen); Bilirubin Negative (Negative); Blood Negative (Negative); Epithelial Cells None Seen /HPF (None Seen); Glucose, Urine Negative (Negative); Hyaline Casts NONE SEEN /LPF (0-2); Ketones Negative (Negative); Leukocyte Esterase Negative (Negative); Nitrite Negative (Negative); Protein,Urine Dip Negative (Negative); RBC 0-2 /HPF (0-5); Urobilinogen 0.2 mg/dL (0.2); WBC 0-2 /HPF (0-5)
[2023-10-08 00:39] LABS: ADD URINE CULTURE? NO (NO)
[2023-10-08] MEDS: Sodium Chloride 0.9% 1000 ML 1,000 ML IV SCH ×3 (00:52→18:20)
[2023-10-08] MEDS ORDERED: MORPHINE SULFATE 2 MG INJ IV PRN (05:01)
[2023-10-08] MEDS ORDERED: Zofran 4 MG/2 ML VIAL IV PRN (05:02)
--- NOTE | 2023-10-08 05:25 | PCM.HP ---
History of Present Illness - Chief Complaint Chief Complaint: Acute pancreatitis Date: 10/08/23 History of Present Illness: Mr. Rubio is a 43 year-old gentleman with HTN and recurrent pancreatitis who presents with pancreatitis. He admits to crampy abdominal pain since Wednesday morning after drinking two beers with his dinner on Wednesday night. Upon arrival to [place], laboratory data and imaging both confirmed pancreatitis. On my examination, he is resting comfortably denying any current fevers, chills, nausea, vomiting, diarrhea, syncope, presyncope, visual changes, orthopnea, PND, odynophagia, dysphagia, chest pain, shortness of breath, belly pain, dysuria, hematuria, melena, hematochezia, or neurological changes. All other systems were reviewed and were negative. - Review of Systems Constitutional: No Fever, No Chills Eyes: No Symptoms Ears, Nose, & Throat: No Symptoms Respiratory: No Cough, No Short Of Breath Cardiac: No Chest Pain, No Edema, No Syncope Abdominal/Gastrointestinal: Abdominal Pain, Nausea, No Vomiting, No Diarrhea Genitourinary Symptoms: No Dysuria Musculoskeletal: No Back Pain, No Neck Pain Skin: No Rash Neurological: No Dizziness, No Focal Weakness, No Sensory Changes Psychological: No Symptoms Endocrine: No Symptoms Hematologic/Lymphatic: No Symptoms Immunological/Allergic: No Symptoms Medications & Allergies Home Medications: Home Medication List PANTOPRAZOLE 40 mg Tablet [Protonix 40MG Tablet] 40 mg PO QAM #30 tab 04/16/22 [Rx Confirmed 10/07/23] Lisinopril/Hydrochlorothiazide [Lisinopril-Hctz 20-12.5 mg Tab] 2 each PO DAILY 10/07/23 [History Confirmed 10/07/23] Allergies/Adverse Reactions: Allergies Allergy/AdvReac Type Severity Reaction Status Date / Time No Known Drug Allergies Allergy Verified 10/07/23 22:13 - Past Medical History Past Medical History: Yes Neurological History: No Pertinent History Cardiac History: Hypertension Respiratory History: No Pertinent History Endocrine Medical History: No Pertinent History Musculoskelatal History: Osteoarthritis GI Medical History: GERD, Pancreatitis History: No Pertinent History Pyscho-Social History: No Pertinent History Male Reproductive Disorders: No Pertinent History Comment: HX LEFT ROTATOR CUFF REPAIR 2020, OSTEOCHONDROMA REMOVAL RIGHT FEMUR PROXIMAL 2018 - Past Surgical History Past Surgical History: Yes Neuro Surgical History: No Pertinent History Cardiac History: No Pertinent History Respiratory Surgery: No Pertinent History GI Surgical History: No Pertinent History Genitourinary Surgical Hx: No Pertinent History Musculskeletal Surgical Hx: Other Male Surgical History: No Pertinent History Other Surgical History: l4 l5 fusion. right hip. bicep and tendon in shoulder. back surgery - Social History Smoking Status: Never smoker Exposure to second hand smoke: No Alcohol: Occasionally Drug Use: none - Physical Exam Vital Signs: Vital Signs - 24 hr Temp Pulse Resp BP BP Pulse Ox 10/08/23 04:17 97.5 F 64 16 153/97 91 L 10/08/23 03:48 18 10/08/23 02:45 94 L 10/08/23 02:02 98.3 F 75 16 151/98 94 L 10/08/23 01:45 142/101 10/08/23 01:30 68 11 L 136/100 94 L 10/08/23 01:05 99 10/08/23 01:00 66 14 141/101 94 L 10/08/23 00:30 91 H 13 146/97 93 L 10/08/23 00:08 70 16 164/106 95 10/07/23 23:37 75 13 92 L 10/07/23 22:02 99.1 F 68 16 157/103 99 General Appearance: no apparent distress, alert Neurologic Exam: alert, oriented x 3, cooperative, normal mood/affect, nml cerebellar function, nml station & gait, sensation nml, No motor deficits Eye Exam: PERRL/EOMI, eyes nml inspection Ears, Nose, Throat Exam: normal ENT inspection, TMs normal, pharynx normal, moist mucous membranes Neck Exam: normal inspection, non-tender, supple, full range of motion Respiratory Exam: normal breath sounds, lungs clear, No respiratory distress Cardiovascular Exam: regular rate/rhythm, normal heart sounds, normal peripheral pulses Gastrointestinal/Abdomen Exam: soft, normal bowel sounds, No tenderness, No mass Back Exam: normal inspection, normal range of motion, No CVA tenderness, No vertebral tenderness Extremity Exam: normal inspection, normal range of motion, pelvis stable Skin Exam: normal color, warm, dry, No rash Lymphatic Exam: No adenopathy Results - Labs Lab/Micro Results: Lab Results-Last 24 Hours 10/07/23 10/07/23 10/08/23 Range/Units 22:55 22:55 00:06 WBC 9.2 (4.0-10.5) x10^3/uL RBC 4.92 (4.1-5.6) x10^6/uL Hgb 15.6 (12.5-18.0) g/dL Hct 45.7 (42-50) % MCV 92.9 (78-100) fL MCH 31.7 (26-32) pg MCHC 34.1 (32-36) g/dL RDW 12.2 (11.5-14.0) % Plt Count 317 (150-450) x10^3/uL MPV 8.8 (7.5-11.0) fL Gran % 70.2 H (36.0-66.0) % Immature Gran % (Auto) 0.4 (0.00-0.4) % Nucleat RBC Rel Count 0.0 (0.00-0.1) % Eos # (Auto) 0.19 (0-0.5) x10^3/uL Immature Gran # (Auto) 0.04 H (0.00-0.03) x10^3u/L Absolute Lymphs (auto) 1.75 (1.0-4.6) x10^3/uL Absolute Monos (auto) 0.73 (0.0-1.3) x10^3/uL Absolute Nucleated RBC 0.00 (0.00-0.01) x10^3u/L Lymphocytes % 19.1 L (24.0-44.0) % Monocytes % 8.0 (0.0-12.0) % Eosinophils % 2.1 (0.00-5.0) % Basophils % 0.2 (0.0-0.4) % Absolute Granulocytes 6.42 (1.4-6.9) x10^3/uL Basophils # 0.02 (0-0.4) x10^3/uL Sodium 131 L (137-145) mmol/L Potassium 3.7 (3.5-5.1) mmol/L Chloride 95 L (98-107) mmol/L Carbon Dioxide 27 (22-30) mmol/L Anion Gap 12.3 (5-15) MEQ/L BUN 11 (9-20) mg/dL Creatinine 0.81 (0.66-1.25) mg/dL Estimated GFR 112.9 ML/MIN Glucose 126 H (74-106) mg/dL Calcium 9.7 (8.4-10.2) mg/dL Total Bilirubin 0.90 (0.2-1.3) mg/dL AST 117 H (17-59) U/L ALT 165 H (0-50) U/L Alkaline Phosphatase 90 (38-126) U/L Troponin I < 0.012 (0.000-0.034) ng/mL Serum Total Protein 8.2 (6.3-8.2) g/dL Albumin 4.5 (3.5-5.0) g/dL Lipase 4299 H (23-300) U/L Urine Color Yellow (Yellow) Urine Appearance Clear (Clear) Urine pH 7.0 (4.6-8.0) Ur Specific [place] 1.010 (1.005-1.030) Urine Protein Negative (Negative) Urine Glucose (UA) Negative (Negative) mg/dL Urine Ketones Negative (Negative) Urine Blood Negative (Negative) Urine Nitrite Negative (Negative) Urine Bilirubin Negative (Negative) Urine Urobilinogen 0.2 (0.2) mg/dL Ur Leukocyte Esterase Negative (Negative) U Hyaline Cast (Auto) NONE SEEN (0-2) /LPF Urine Microscopic RBC 0-2 (0-5) /HPF Urine Microscopic WBC 0-2 (0-5) /HPF Ur Epithelial Cells None Seen (None Seen) /HPF Urine Bacteria None Seen (None Seen) /HPF Urine Culture Reflexed NO (NO) 10/08/23 Range/Units 03:30 WBC (4.0-10.5) x10^3/uL RBC (4.1-5.6) x10^6/uL Hgb (12.5-18.0) g/dL Hct (42-50) % MCV (78-100) fL MCH (26-32) pg MCHC (32-36) g/dL RDW (11.5-14.0) % Plt Count (150-450) x10^3/uL MPV (7.5-11.0) fL Gran % (36.0-66.0) % Immature Gran % (Auto) (0.00-0.4) % Nucleat RBC Rel Count (0.00-0.1) % Eos # (Auto) (0-0.5) x10^3/uL Immature Gran # (Auto) (0.00-0.03) x10^3u/L Absolute Lymphs (auto) (1.0-4.6) x10^3/uL Absolute Monos (auto) (0.0-1.3) x10^3/uL Absolute Nucleated RBC (0.00-0.01) x10^3u/L Lymphocytes % (24.0-44.0) % Monocytes % (0.0-12.0) % Eosinophils % (0.00-5.0) % Basophils % (0.0-0.4) % Absolute Granulocytes (1.4-6.9) x10^3/uL Basophils # (0-0.4) x10^3/uL Sodium (137-145) mmol/L Potassium (3.5-5.1) mmol/L Chloride (98-107) mmol/L Carbon Dioxide (22-30) mmol/L Anion Gap (5-15) MEQ/L BUN (9-20) mg/dL Creatinine (0.66-1.25) mg/dL Estimated GFR ML/MIN Glucose (74-106) mg/dL Calcium (8.4-10.2) mg/dL Total Bilirubin (0.2-1.3) mg/dL AST (17-59) U/L ALT (0-50) U/L Alkaline Phosphatase (38-126) U/L Troponin I < 0.012 (0.000-0.034) ng/mL Serum Total Protein (6.3-8.2) g/dL Albumin (3.5-5.0) g/dL Lipase (23-300) U/L Urine Color (Yellow) Urine Appearance (Clear) Urine pH (4.6-8.0) Ur Specific [place] (1.005-1.030) Urine Protein (Negative) Urine Glucose (UA) (Negative) mg/dL Urine Ketones (Negative) Urine Blood (Negative) Urine Nitrite (Negative) Urine Bilirubin (Negative) Urine Urobilinogen (0.2) mg/dL Ur Leukocyte Esterase (Negative) U Hyaline Cast (Auto) (0-2) /LPF Urine Microscopic RBC (0-5) /HPF Urine Microscopic WBC (0-5) /HPF Ur Epithelial Cells (None Seen) /HPF Urine Bacteria (None Seen) /HPF Urine Culture Reflexed (NO) - Radiology Impressions Radiology Exams & Impressions: Radiology Procedures Category Date Time Status ABDOMEN AND PELVIS W/0 CONTRAS [CT] Stat Exams 10/07/23 23:39 Completed Ultrasound Gallbladder [GALLBLADDER] [US] Routine Exams 10/08/23 05:03 Ordered Assessment/Plan (1) Pancreatitis Current Visit: No Status: Acute Assessment & Plan: ASSESSMENT 1. Acute Pancreatitis 2. Hyponatremia 3. Acute Transaminitis 4. Hypertension PLAN 1. NPO 2. Anti-emetics 3. Analgesics 4. RUQ US 5. Lipid profile 6. Recommend abstinence from drinking Lovenox/PPI The entirety of this encounter was done via telemedicine Serge Barrett MD Pulmonary and Critical Care Medicine Code(s): K85.90 - ACUTE PANCREATITIS WITHOUT NECROSIS OR INFECTION, UNSP Telemedicine Encounter - Telemedicine Encounter Telemedicine Encounter: The entirety of this encounter was performed via Telemedicine"
--- NOTE | 2023-10-08 05:36 | PCM.NOTE ---
Date and Time: 10/08/23 0531 Subjective Assessment: Mr. Rubio is a 43 year-old gentleman with HTN and recurrent pancreatitis who presents with pancreatitis. He admits to crampy abdominal pain since Wednesday morning after drinking two beers with his dinner on Wednesday night. Upon arrival to [place], laboratory data and imaging both confirmed pancreatitis. Plan for supportive therapies with IVF, anti-emetics, and pain control. GI consult as OP as this is his second episode of acute pancreatitis. 10/08: Met with patient bedside. Endorses overall improvement overnight. Pain level is 6/10 on numerical pain scale. No nausea or vomiting. This is his second episode of pancreatitis, first one in May of this year. Minor alcohol consumption (1-2 beers) preceded both episodes. Lipase levels are downtrending. Patient requesting CLD diet today. Will ADAT. If he does well, plan for discharge in the morning. Will set up with GI as OP. Denies fever,cough, sob, cp, SUMMERS, dizziness, N/V/D. <MARYANA MIJARES - Last Filed: 10/08/23 13:08> Date and Time: 10/08/23 2256 <SANDY NIX - Last Filed: 10/08/23 22:57> - Review of Systems Constitutional: No Symptoms Eyes: No Symptoms Ears, Nose, & Throat: No Symptoms Respiratory: No Symptoms Cardiac: No Symptoms Abdominal/Gastrointestinal: Abdominal Pain Genitourinary Symptoms: No Symptoms Musculoskeletal: No Symptoms Skin: No Symptoms Neurological: No Symptoms Psychological: No Symptoms Endocrine: No Symptoms Hematologic/Lymphatic: No Symptoms Immunological/Allergic: No Symptoms <MARYANA MIJARES - Last Filed: 10/08/23 13:08> Objective Exam General Appearance: no apparent distress Neurologic Exam: alert, oriented x 3, cooperative Skin Exam: normal color Eye Exam: PERRL Ears, Nose, Throat Exam: normal ENT inspection Neck Exam: normal inspection Respiratory Exam: normal breath sounds, lungs clear Cardiovascular Exam: regular rate/rhythm, normal heart sounds Gastrointestinal/Abdomen Exam: soft, normal bowel sounds, tenderness (TTP quads x 4) Extremity Exam: normal inspection Back Exam: normal inspection Male Genitalia Exam: deferred Rectal Exam: deferred <MARYANA MIJARES - Last Filed: 10/08/23 13:08> OBJECTIVE DATA Vital Signs: Vital Signs - 24 hr Temp Pulse Resp BP BP Pulse Ox 10/08/23 04:17 97.5 F 64 16 153/97 91 L 10/08/23 03:48 18 10/08/23 02:45 94 L 10/08/23 02:02 98.3 F 75 16 151/98 94 L 10/08/23 01:45 142/101 10/08/23 01:30 68 11 L 136/100 94 L 10/08/23 01:05 99 10/08/23 01:00 66 14 141/101 94 L 10/08/23 00:30 91 H 13 146/97 93 L 10/08/23 00:08 70 16 164/106 95 10/07/23 23:37 75 13 92 L 10/07/23 22:02 99.1 F 68 16 157/103 99 Pain Assessment - Last Documented Pain Intensity 3 Pain Scale Used 0-10 Pain Scale Intake and Output: Intake & Output 10/05/23 10/06/23 10/07/23 10/08/23 11:59 11:59 11:59 11:59 Weight 99.337 kg Lab Results: Lab Results-Last 24 Hours 10/07/23 10/07/23 10/08/23 Range/Units 22:55 22:55 00:06 WBC 9.2 (4.0-10.5) x10^3/uL RBC 4.92 (4.1-5.6) x10^6/uL Hgb 15.6 (12.5-18.0) g/dL Hct 45.7 (42-50) % MCV 92.9 (78-100) fL MCH 31.7 (26-32) pg MCHC 34.1 (32-36) g/dL RDW 12.2 (11.5-14.0) % Plt Count 317 (150-450) x10^3/uL MPV 8.8 (7.5-11.0) fL Gran % 70.2 H (36.0-66.0) % Immature Gran % (Auto) 0.4 (0.00-0.4) % Nucleat RBC Rel Count 0.0 (0.00-0.1) % Eos # (Auto) 0.19 (0-0.5) x10^3/uL Immature Gran # (Auto) 0.04 H (0.00-0.03) x10^3u/L Absolute Lymphs (auto) 1.75 (1.0-4.6) x10^3/uL Absolute Monos (auto) 0.73 (0.0-1.3) x10^3/uL Absolute Nucleated RBC 0.00 (0.00-0.01) x10^3u/L Lymphocytes % 19.1 L (24.0-44.0) % Monocytes % 8.0 (0.0-12.0) % Eosinophils % 2.1 (0.00-5.0) % Basophils % 0.2 (0.0-0.4) % Absolute Granulocytes 6.42 (1.4-6.9) x10^3/uL Basophils # 0.02 (0-0.4) x10^3/uL Sodium 131 L (137-145) mmol/L Potassium 3.7 (3.5-5.1) mmol/L Chloride 95 L (98-107) mmol/L Carbon Dioxide 27 (22-30) mmol/L Anion Gap 12.3 (5-15) MEQ/L BUN 11 (9-20) mg/dL Creatinine 0.81 (0.66-1.25) mg/dL Estimated GFR 112.9 ML/MIN Glucose 126 H (74-106) mg/dL Calcium 9.7 (8.4-10.2) mg/dL Total Bilirubin 0.90 (0.2-1.3) mg/dL AST 117 H (17-59) U/L ALT 165 H (0-50) U/L Alkaline Phosphatase 90 (38-126) U/L Troponin I < 0.012 (0.000-0.034) ng/mL Serum Total Protein 8.2 (6.3-8.2) g/dL Albumin 4.5 (3.5-5.0) g/dL Lipase 4299 H (23-300) U/L Urine Color Yellow (Yellow) Urine Appearance Clear (Clear) Urine pH 7.0 (4.6-8.0) Ur Specific Henderson 1.010 (1.005-1.030) Urine Protein Negative (Negative) Urine Glucose (UA) Negative (Negative) mg/dL Urine Ketones Negative (Negative) Urine Blood Negative (Negative) Urine Nitrite Negative (Negative) Urine Bilirubin Negative (Negative) Urine Urobilinogen 0.2 (0.2) mg/dL Ur Leukocyte Esterase Negative (Negative) U Hyaline Cast (Auto) NONE SEEN (0-2) /LPF Urine Microscopic RBC 0-2 (0-5) /HPF Urine Microscopic WBC 0-2 (0-5) /HPF Ur Epithelial Cells None Seen (None Seen) /HPF Urine Bacteria None Seen (None Seen) /HPF Urine Culture Reflexed NO (NO) 10/08/23 Range/Units 03:30 WBC (4.0-10.5) x10^3/uL RBC (4.1-5.6) x10^6/uL Hgb (12.5-18.0) g/dL Hct (42-50) % MCV (78-100) fL MCH (26-32) pg MCHC (32-36) g/dL RDW (11.5-14.0) % Plt Count (150-450) x10^3/uL MPV (7.5-11.0) fL Gran % (36.0-66.0) % Immature Gran % (Auto) (0.00-0.4) % Nucleat RBC Rel Count (0.00-0.1) % Eos # (Auto) (0-0.5) x10^3/uL Immature Gran # (Auto) (0.00-0.03) x10^3u/L Absolute Lymphs (auto) (1.0-4.6) x10^3/uL Absolute Monos (auto) (0.0-1.3) x10^3/uL Absolute Nucleated RBC (0.00-0.01) x10^3u/L Lymphocytes % (24.0-44.0) % Monocytes % (0.0-12.0) % Eosinophils % (0.00-5.0) % Basophils % (0.0-0.4) % Absolute Granulocytes (1.4-6.9) x10^3/uL Basophils # (0-0.4) x10^3/uL Sodium (137-145) mmol/L Potassium (3.5-5.1) mmol/L Chloride (98-107) mmol/L Carbon Dioxide (22-30) mmol/L Anion Gap (5-15) MEQ/L BUN (9-20) mg/dL Creatinine (0.66-1.25) mg/dL Estimated GFR ML/MIN Glucose (74-106) mg/dL Calcium (8.4-10.2) mg/dL Total Bilirubin (0.2-1.3) mg/dL AST (17-59) U/L ALT (0-50) U/L Alkaline Phosphatase (38-126) U/L Troponin I < 0.012 (0.000-0.034) ng/mL Serum Total Protein (6.3-8.2) g/dL Albumin (3.5-5.0) g/dL Lipase (23-300) U/L Urine Color (Yellow) Urine Appearance (Clear) Urine pH (4.6-8.0) Ur Specific Henderson (1.005-1.030) Urine Protein (Negative) Urine Glucose (UA) (Negative) mg/dL Urine Ketones (Negative) Urine Blood (Negative) Urine Nitrite (Negative) Urine Bilirubin (Negative) Urine Urobilinogen (0.2) mg/dL Ur Leukocyte Esterase (Negative) U Hyaline Cast (Auto) (0-2) /LPF Urine Microscopic RBC (0-5) /HPF Urine Microscopic WBC (0-5) /HPF Ur Epithelial Cells (None Seen) /HPF Urine Bacteria (None Seen) /HPF Urine Culture Reflexed (NO) Radiology Exams: Radiology Procedures Category Date Time Status ABDOMEN AND PELVIS W/0 CONTRAS [CT] Stat Exams 10/07/23 23:39 Completed Ultrasound Gallbladder [GALLBLADDER] [US] Routine Exams 10/08/23 05:03 Ordered <MARYANA MIJARES - Last Filed: 10/08/23 13:08> Vital Signs: Vital Signs - 24 hr Temp Pulse Resp BP BP Pulse Ox 10/08/23 19:53 97.1 F 73 18 130/86 95 10/08/23 19:06 95 10/08/23 16:00 97.6 F 74 16 124/80 94 L 10/08/23 11:59 98.4 F 71 16 136/81 96 10/08/23 07:39 95 10/08/23 06:54 97.4 F 65 16 143/99 95 10/08/23 04:17 97.5 F 64 16 153/97 91 L 10/08/23 03:48 18 10/08/23 02:45 94 L 10/08/23 02:02 98.3 F 75 16 151/98 94 L 10/08/23 01:45 142/101 10/08/23 01:30 68 11 L 136/100 94 L 10/08/23 01:05 99 10/08/23 01:00 66 14 141/101 94 L 10/08/23 00:30 91 H 13 146/97 93 L 10/08/23 00:08 70 16 164/106 95 10/07/23 23:37 75 13 92 L Pain Assessment - Last Documented Pain Intensity 6 Pain Scale Used 0-10 Pain Scale Intake and Output: Intake & Output 10/06/23 10/07/23 10/08/23 10/09/23 11:59 11:59 11:59 11:59 Intake Total 474 400 Output Total 350 0 Balance 124 400 Weight 99.337 kg Lab Results: Lab Results-Last 24 Hours 10/07/23 10/07/23 10/08/23 Range/Units 22:55 22:55 00:06 WBC 9.2 (4.0-10.5) x10^3/uL RBC 4.92 (4.1-5.6) x10^6/uL Hgb 15.6 (12.5-18.0) g/dL Hct 45.7 (42-50) % MCV 92.9 (78-100) fL MCH 31.7 (26-32) pg MCHC 34.1 (32-36) g/dL RDW 12.2 (11.5-14.0) % Plt Count 317 (150-450) x10^3/uL MPV 8.8 (7.5-11.0) fL Gran % 70.2 H (36.0-66.0) % Immature Gran % (Auto) 0.4 (0.00-0.4) % Nucleat RBC Rel Count 0.0 (0.00-0.1) % Eos # (Auto) 0.19 (0-0.5) x10^3/uL Immature Gran # (Auto) 0.04 H (0.00-0.03) x10^3u/L Absolute Lymphs (auto) 1.75 (1.0-4.6) x10^3/uL Absolute Monos (auto) 0.73 (0.0-1.3) x10^3/uL Absolute Nucleated RBC 0.00 (0.00-0.01) x10^3u/L Lymphocytes % 19.1 L (24.0-44.0) % Monocytes % 8.0 (0.0-12.0) % Eosinophils % 2.1 (0.00-5.0) % Basophils % 0.2 (0.0-0.4) % Absolute Granulocytes 6.42 (1.4-6.9) x10^3/uL Basophils # 0.02 (0-0.4) x10^3/uL Sodium 131 L (137-145) mmol/L Potassium 3.7 (3.5-5.1) mmol/L Chloride 95 L (98-107) mmol/L Carbon Dioxide 27 (22-30) mmol/L Anion Gap 12.3 (5-15) MEQ/L BUN 11 (9-20) mg/dL Creatinine 0.81 (0.66-1.25) mg/dL Estimated GFR 112.9 ML/MIN Glucose 126 H (74-106) mg/dL Calcium 9.7 (8.4-10.2) mg/dL Total Bilirubin 0.90 (0.2-1.3) mg/dL AST 117 H (17-59) U/L ALT 165 H (0-50) U/L Alkaline Phosphatase 90 (38-126) U/L Troponin I < 0.012 (0.000-0.034) ng/mL Serum Total Protein 8.2 (6.3-8.2) g/dL Albumin 4.5 (3.5-5.0) g/dL Triglycerides (30-150) mg/dL Cholesterol (50-200) mg/dL LDL Cholesterol (30-100) mg/dL HDL Cholesterol (40-60) mg/dL Heart Disease Risk Ratio Lipase 4299 H (23-300) U/L Urine Color Yellow (Yellow) Urine Appearance Clear (Clear) Urine pH 7.0 (4.6-8.0) Ur Specific Henderson 1.010 (1.005-1.030) Urine Protein Negative (Negative) Urine Glucose (UA) Negative (Negative) mg/dL Urine Ketones Negative (Negative) Urine Blood Negative (Negative) Urine Nitrite Negative (Negative) Urine Bilirubin Negative (Negative) Urine Urobilinogen 0.2 (0.2) mg/dL Ur Leukocyte Esterase Negative (Negative) U Hyaline Cast (Auto) NONE SEEN (0-2) /LPF Urine Microscopic RBC 0-2 (0-5) /HPF Urine Microscopic WBC 0-2 (0-5) /HPF Ur Epithelial Cells None Seen (None Seen) /HPF Urine Bacteria None Seen (None Seen) /HPF Urine Culture Reflexed NO (NO) 10/08/23 10/08/23 10/08/23 Range/Units 03:30 04:50 06:35 WBC (4.0-10.5) x10^3/uL RBC (4.1-5.6) x10^6/uL Hgb (12.5-18.0) g/dL Hct (42-50) % MCV (78-100) fL MCH (26-32) pg MCHC (32-36) g/dL RDW (11.5-14.0) % Plt Count (150-450) x10^3/uL MPV (7.5-11.0) fL Gran % (36.0-66.0) % Immature Gran % (Auto) (0.00-0.4) % Nucleat RBC Rel Count (0.00-0.1) % Eos # (Auto) (0-0.5) x10^3/uL Immature Gran # (Auto) (0.00-0.03) x10^3u/L Absolute Lymphs (auto) (1.0-4.6) x10^3/uL Absolute Monos (auto) (0.0-1.3) x10^3/uL Absolute Nucleated RBC (0.00-0.01) x10^3u/L Lymphocytes % (24.0-44.0) % Monocytes % (0.0-12.0) % Eosinophils % (0.00-5.0) % Basophils % (0.0-0.4) % Absolute Granulocytes (1.4-6.9) x10^3/uL Basophils # (0-0.4) x10^3/uL Sodium (137-145) mmol/L Potassium (3.5-5.1) mmol/L Chloride (98-107) mmol/L Carbon Dioxide (22-30) mmol/L Anion Gap (5-15) MEQ/L BUN (9-20) mg/dL Creatinine (0.66-1.25) mg/dL Estimated GFR ML/MIN Glucose (74-106) mg/dL Calcium (8.4-10.2) mg/dL Total Bilirubin (0.2-1.3) mg/dL AST (17-59) U/L ALT (0-50) U/L Alkaline Phosphatase (38-126) U/L Troponin I < 0.012 < 0.012 (0.000-0.034) ng/mL Serum Total Protein (6.3-8.2) g/dL Albumin (3.5-5.0) g/dL Triglycerides 207 H (30-150) mg/dL Cholesterol 253 H (50-200) mg/dL LDL Cholesterol 165 H (30-100) mg/dL HDL Cholesterol 42 (40-60) mg/dL Heart Disease Risk Ratio 6.1 Lipase 4090 H (23-300) U/L Urine Color (Yellow) Urine Appearance (Clear) Urine pH (4.6-8.0) Ur Specific Henderson (1.005-1.030) Urine Protein (Negative) Urine Glucose (UA) (Negative) mg/dL Urine Ketones (Negative) Urine Blood (Negative) Urine Nitrite (Negative) Urine Bilirubin (Negative) Urine Urobilinogen (0.2) mg/dL Ur Leukocyte Esterase (Negative) U Hyaline Cast (Auto) (0-2) /LPF Urine Microscopic RBC (0-5) /HPF Urine Microscopic WBC (0-5) /HPF Ur Epithelial Cells (None Seen) /HPF Urine Bacteria (None Seen) /HPF Urine Culture Reflexed (NO) 10/08/23 10/08/23 Range/Units 08:31 08:31 WBC 9.7 (4.0-10.5) x10^3/uL RBC 4.75 (4.1-5.6) x10^6/uL Hgb 15.1 (12.5-18.0) g/dL Hct 44.9 (42-50) % MCV 94.5 (78-100) fL MCH 31.8 (26-32) pg MCHC 33.6 (32-36) g/dL RDW 12.3 (11.5-14.0) % Plt Count 317 (150-450) x10^3/uL MPV 9.4 (7.5-11.0) fL Gran % (36.0-66.0) % Immature Gran % (Auto) (0.00-0.4) % Nucleat RBC Rel Count (0.00-0.1) % Eos # (Auto) (0-0.5) x10^3/uL Immature Gran # (Auto) (0.00-0.03) x10^3u/L Absolute Lymphs (auto) (1.0-4.6) x10^3/uL Absolute Monos (auto) (0.0-1.3) x10^3/uL Absolute Nucleated RBC (0.00-0.01) x10^3u/L Lymphocytes % (24.0-44.0) % Monocytes % (0.0-12.0) % Eosinophils % (0.00-5.0) % Basophils % (0.0-0.4) % Absolute Granulocytes (1.4-6.9) x10^3/uL Basophils # (0-0.4) x10^3/uL Sodium 135 L (137-145) mmol/L Potassium 3.7 (3.5-5.1) mmol/L Chloride 102 (98-107) mmol/L Carbon Dioxide 22 (22-30) mmol/L Anion Gap 14.3 (5-15) MEQ/L BUN 11 (9-20) mg/dL Creatinine 0.82 (0.66-1.25) mg/dL Estimated GFR 112.5 ML/MIN Glucose 112 H (74-106) mg/dL Calcium 9.1 (8.4-10.2) mg/dL Total Bilirubin 0.90 (0.2-1.3) mg/dL AST 110 H (17-59) U/L ALT 140 H (0-50) U/L Alkaline Phosphatase 74 (38-126) U/L Troponin I (0.000-0.034) ng/mL Serum Total Protein 7.1 (6.3-8.2) g/dL Albumin 4.0 (3.5-5.0) g/dL Triglycerides (30-150) mg/dL Cholesterol (50-200) mg/dL LDL Cholesterol (30-100) mg/dL HDL Cholesterol (40-60) mg/dL Heart Disease Risk Ratio Lipase (23-300) U/L Urine Color (Yellow) Urine Appearance (Clear) Urine pH (4.6-8.0) Ur Specific Henderson (1.005-1.030) Urine Protein (Negative) Urine Glucose (UA) (Negative) mg/dL Urine Ketones (Negative) Urine Blood (Negative) Urine Nitrite (Negative) Urine Bilirubin (Negative) Urine Urobilinogen (0.2) mg/dL Ur Leukocyte Esterase (Negative) U Hyaline Cast (Auto) (0-2) /LPF Urine Microscopic RBC (0-5) /HPF Urine Microscopic WBC (0-5) /HPF Ur Epithelial Cells (None Seen) /HPF Urine Bacteria (None Seen) /HPF Urine Culture Reflexed (NO) Radiology Exams: Radiology Procedures Category Date Time Status ABDOMEN AND PELVIS W/0 CONTRAS [CT] Stat Exams 10/07/23 23:39 Completed Ultrasound Gallbladder [GALLBLADDER] [US] Routine Exams 10/08/23 05:03 Completed <SANDY NIX - Last Filed: 10/08/23 22:57> Assessment/Plan (1) Acute pancreatitis Current Visit: Yes Status: Acute Assessment & Plan: -CT showing 1. Redemonstration of fat stranding around the head, neck, and uncinate process of pancreas with minimal peripancreatic fluid in this region, representing acute pancreatitis. 2. Similar changes in the previous CT study dated 06/21/2023, with relatively lesser inflammatory changes and peripancreatic fluid at the present study, could represent residual changes or new events of acute pancreatitis at present. 3. Stable hepatomegaly with fatty changes and few hypodense lesions, likely representing hepatic cysts/ hemangioma. -Lipase trending down 4090<4299 -Aggressive hydration -CLD- ADAT -Anti-emetics -pain control -US abd pending -lipid Code(s): K85.90 - ACUTE PANCREATITIS WITHOUT NECROSIS OR INFECTION, UNSP (2) Hyponatremia Current Visit: Yes Status: Acute Assessment & Plan: -most likely secondary to hypovolemia -IVF -Continue to monitor renal/lytes daily Code(s): E87.1 - HYPO-OSMOLALITY AND HYPONATREMIA (3) Transaminitis Current Visit: Yes Status: Acute Assessment & Plan: -continue to trend, pt noted with fatty liver on CT Code(s): R74.01 - ELEVATION OF LEVELS OF LIVER TRANSAMINASE LEVELS (4) Hypertension Current Visit: Yes Status: Acute Assessment & Plan: -continue home meds Code(s): I10 - ESSENTIAL (PRIMARY) HYPERTENSION <MARYANA MIJARES - Last Filed: 10/08/23 13:08> LACIE Encounter - LACIE Encounter Attestation LACIE Encounter Attestation: "IhgermainpersonalSHALOM Siddiqi andhavediscussed pertinent aspects of their care with Maryana Cabezas agree with the history, physical exam (any modifications based on my personal exam will be noted below), assessment, and plan as outlined in original note. Please see immediately below for my summary of findings and additional assessment and plan along with any meaningful corrections/explanations to the Subjective/Objective portions of the LACIE note will be noted." My portion of the encounter took place via telemedicine. -Acute pancreatitis, likely related to alcohol intake. Improving, anticipate discharge tomorrow. <SANDY NIX - Last Filed: 10/08/23 22:57>
[2023-10-08] MEDS: Hydromorphone 1 mg/ml Injection IV PRN ×5 (05:44→22:44)
[2023-10-08 06:09] LABS: Risk Ratio 6.1
[2023-10-08 07:06] LABS: TROPONIN < 0.012 ng/mL (0.000-0.034)
[2023-10-08 08:47] LABS: Hematocrit 44.9 % (42-50); Hemoglobin 15.1 g/dL (12.5-18.0); Mean Cell Volume 94.5 fL (78-100); Mean Corpuscular Hemoglobin 31.8 pg (26-32); Mean Corpuscular Hgb Concent. 33.6 g/dL (32-36); Mean Platelet Volume 9.4 fL (7.5-11.0); Platelet Count 317 x10^3/uL (150-450); Red Blood Count 4.75 x10^6/uL (4.1-5.6); Red Cell Distribution Width 12.3 % (11.5-14.0); White Blood Count 9.7 x10^3/uL (4.0-10.5)
[2023-10-08 09:01] LABS: ANION GAP 14.3 MEQ/L (5-15); BILIRUBIN,TOTAL 0.9 mg/dL (0.2-1.3); Calcium 9.1 mg/dL (8.4-10.2); Creatinine 1 0.82 mg/dL (0.66-1.25); EST GLOMERULAR FILTRATION RATE 112.5 ML/MIN; Potassium 3.7 mmol/L (3.5-5.1); Total Protein 7.1 g/dL (6.3-8.2)
[2023-10-08 09:04] LABS: LIPASE 4090 U/L (23-300)
[2023-10-08] MEDS: Zestril 20 MG PO SCH (10:02)
[2023-10-08] MEDS: hydroDIURIL 25 MG PO SCH (10:02)
--- NOTE | 2023-10-08 10:02 | XRAY ---
Indication: Pancreatitis. Two-dimensional gallbladder sonogram performed. Comparison: None Pancreas not well seen due to overlying bowel gas. Gallbladder normally distended without gallstones, wall thickening, or pericholecystic fluid. Common bile duct measures 4.5 mm. No intrahepatic biliary distention. Visualized liver fatty in echogenicity with 1.4 cm left lobe hepatic cyst. No hepatomegaly or free fluid. Right kidney measures 12.2 x 4.8 x 6.9 cm in sonographically unremarkable. Impression: Nonvisualization pancreas. Fatty liver and hepatic cyst. Remaining gallbladder sonogram is negative.
[2023-10-08] MEDS: ENOXAPARIN SODIUM SQ SCH (10:04)
[2023-10-09] MEDS: Sodium Chloride 0.9% 1000 ML 1,000 ML IV SCH (02:12)
[2023-10-09] MEDS: Hydromorphone 1 mg/ml Injection IV PRN ×2 (02:37→08:06)
[2023-10-09] MEDS ORDERED: BENADRYL 25 MG CAPSULE PO ONE (03:15)
--- NOTE | 2023-10-09 05:15 | PCM.NOTE ---
Date and Time: 10/09/23 0514 Subjective Assessment: Mr. Rubio is a 43 year-old gentleman with HTN and recurrent pancreatitis who presents with pancreatitis. He admits to crampy abdominal pain since Wednesday morning after drinking two beers with his dinner on Wednesday night. Upon arrival to [place], laboratory data and imaging both confirmed pancreatitis. Plan for supportive therapies with IVF, anti-emetics, and pain control. GI consult as OP as this is his second episode of acute pancreatitis. 10/08: Met with patient bedside. Endorses overall improvement overnight. Pain level is 6/10 on numerical pain scale. No nausea or vomiting. This is his second episode of pancreatitis, first one in May of this year. Minor alcohol consumption (1-2 beers) preceded both episodes. Lipase levels are downtrending. Patient requesting CLD diet today. Will ADAT. If he does well, plan for discharge in the morning. Will set up with GI as OP. Denies fever,cough, sob, cp, SUMMERS, dizziness, N/V/D. OBJECTIVE DATA Vital Signs: Vital Signs - 24 hr Temp Pulse Resp BP Pulse Ox 10/09/23 04:00 97.6 F 68 16 129/79 96 10/08/23 23:44 16 10/08/23 23:42 97 F 67 16 132/92 97 10/08/23 19:53 97.1 F 73 18 130/86 95 10/08/23 19:06 95 10/08/23 16:00 97.6 F 74 16 124/80 94 L 10/08/23 11:59 98.4 F 71 16 136/81 96 10/08/23 07:39 95 10/08/23 06:54 97.4 F 65 16 143/99 95 Pain Assessment - Last Documented Pain Intensity 4 Pain Scale Used 0-10 Pain Scale Intake and Output: Intake & Output 10/06/23 10/07/23 10/08/23 10/09/23 11:59 11:59 11:59 11:59 Intake Total 474 400 Output Total 350 0 Balance 124 400 Weight 99.337 kg Lab Results: Lab Results-Last 24 Hours 10/08/23 10/08/23 10/08/23 Range/Units 04:50 06:35 08:31 WBC 9.7 (4.0-10.5) x10^3/uL RBC 4.75 (4.1-5.6) x10^6/uL Hgb 15.1 (12.5-18.0) g/dL Hct 44.9 (42-50) % MCV 94.5 (78-100) fL MCH 31.8 (26-32) pg MCHC 33.6 (32-36) g/dL RDW 12.3 (11.5-14.0) % Plt Count 317 (150-450) x10^3/uL MPV 9.4 (7.5-11.0) fL Sodium (137-145) mmol/L Potassium (3.5-5.1) mmol/L Chloride (98-107) mmol/L Carbon Dioxide (22-30) mmol/L Anion Gap (5-15) MEQ/L BUN (9-20) mg/dL Creatinine (0.66-1.25) mg/dL Estimated GFR ML/MIN Glucose (74-106) mg/dL Calcium (8.4-10.2) mg/dL Total Bilirubin (0.2-1.3) mg/dL AST (17-59) U/L ALT (0-50) U/L Alkaline Phosphatase (38-126) U/L Troponin I < 0.012 (0.000-0.034) ng/mL Serum Total Protein (6.3-8.2) g/dL Albumin (3.5-5.0) g/dL Triglycerides 207 H (30-150) mg/dL Cholesterol 253 H (50-200) mg/dL LDL Cholesterol 165 H (30-100) mg/dL HDL Cholesterol 42 (40-60) mg/dL Heart Disease Risk Ratio 6.1 Lipase 4090 H (23-300) U/L 10/08/23 Range/Units 08:31 WBC (4.0-10.5) x10^3/uL RBC (4.1-5.6) x10^6/uL Hgb (12.5-18.0) g/dL Hct (42-50) % MCV (78-100) fL MCH (26-32) pg MCHC (32-36) g/dL RDW (11.5-14.0) % Plt Count (150-450) x10^3/uL MPV (7.5-11.0) fL Sodium 135 L (137-145) mmol/L Potassium 3.7 (3.5-5.1) mmol/L Chloride 102 (98-107) mmol/L Carbon Dioxide 22 (22-30) mmol/L Anion Gap 14.3 (5-15) MEQ/L BUN 11 (9-20) mg/dL Creatinine 0.82 (0.66-1.25) mg/dL Estimated GFR 112.5 ML/MIN Glucose 112 H (74-106) mg/dL Calcium 9.1 (8.4-10.2) mg/dL Total Bilirubin 0.90 (0.2-1.3) mg/dL AST 110 H (17-59) U/L ALT 140 H (0-50) U/L Alkaline Phosphatase 74 (38-126) U/L Troponin I (0.000-0.034) ng/mL Serum Total Protein 7.1 (6.3-8.2) g/dL Albumin 4.0 (3.5-5.0) g/dL Triglycerides (30-150) mg/dL Cholesterol (50-200) mg/dL LDL Cholesterol (30-100) mg/dL HDL Cholesterol (40-60) mg/dL Heart Disease Risk Ratio Lipase (23-300) U/L Radiology Exams: Radiology Procedures Category Date Time Status ABDOMEN AND PELVIS W/0 CONTRAS [CT] Stat Exams 10/07/23 23:39 Completed Ultrasound Gallbladder [GALLBLADDER] [US] Routine Exams 10/08/23 05:03 Completed Assessment/Plan (1) Acute pancreatitis Current Visit: Yes Status: Acute Assessment & Plan: -CT showing 1. Redemonstration of fat stranding around the head, neck, and uncinate process of pancreas with minimal peripancreatic fluid in this region, representing acute pancreatitis. 2. Similar changes in the previous CT study dated 06/21/2023, with relatively lesser inflammatory changes and peripancreatic fluid at the present study, could represent residual changes or new events of acute pancreatitis at present. 3. Stable hepatomegaly with fatty changes and few hypodense lesions, likely representing hepatic cysts/ hemangioma. -Lipase trending down 4090<4299 -Aggressive hydration -CLD- ADAT -Anti-emetics -pain control -US abd pending -lipid Code(s): K85.90 - ACUTE PANCREATITIS WITHOUT NECROSIS OR INFECTION, UNSP (2) Hyponatremia Current Visit: Yes Status: Acute Assessment & Plan: -most likely secondary to hypovolemia -IVF -Continue to monitor renal/lytes daily Code(s): E87.1 - HYPO-OSMOLALITY AND HYPONATREMIA (3) Transaminitis Current Visit: Yes Status: Acute Assessment & Plan: -continue to trend, pt noted with fatty liver on CT Code(s): R74.01 - ELEVATION OF LEVELS OF LIVER TRANSAMINASE LEVELS (4) Hypertension Current Visit: Yes Status: Acute Assessment & Plan: -continue home meds Code(s): I10 - ESSENTIAL (PRIMARY) HYPERTENSION Code(s): K85.90 - ACUTE PANCREATITIS WITHOUT NECROSIS OR INFECTION, UNSP (2) Hyponatremia Current Visit: Yes Status: Acute Code(s): E87.1 - HYPO-OSMOLALITY AND HYPONATREMIA (3) Transaminitis Current Visit: Yes Status: Acute Code(s): R74.01 - ELEVATION OF LEVELS OF LIVER TRANSAMINASE LEVELS (4) Hypertension Current Visit: Yes Status: Acute Code(s): I10 - ESSENTIAL (PRIMARY) HYPERTENSION
[2023-10-09 05:48] LABS: Absolute Neutrophil Ct (ANC) 4.66 x10^3/uL (1.4-6.9); BASOPHIL % 0.3 % (0.0-0.4); Basophil (Absolute #) 0.02 x10^3/uL (0-0.4); Eosinophil % 4.3 % (0.00-5.0); Eosinophil (Absolute #) 0.32 x10^3/uL (0-0.5); Hemoglobin 14.2 g/dL (12.5-18.0); IMMATURE GRAN # 0.03 x10^3u/L (0.00-0.03); IMMATURE GRAN % 0.4 % (0.00-0.4); Lymphocyte (Absolute #) 1.86 x10^3/uL (1.0-4.6); Lymphocytes % 24.9 % (24.0-44.0); Mean Cell Volume 92.7 fL (78-100); Mean Corpuscular Hemoglobin 31.3 pg (26-32); Mean Corpuscular Hgb Concent. 33.8 g/dL (32-36); Mean Platelet Volume 8.9 fL (7.5-11.0); Monocyte (Absolute #) 0.59 x10^3/uL (0.0-1.3); Monocytes % 7.9 % (0.0-12.0); Neutrophil % 62.2 % (36.0-66.0); Platelet Count 287 x10^3/uL (150-450); Red Blood Count 4.53 x10^6/uL (4.1-5.6); Red Cell Distribution Width 12.2 % (11.5-14.0); White Blood Count 7.5 x10^3/uL (4.0-10.5)
[2023-10-09 06:21] LABS: ALBUMIN 4.2 g/dL (3.5-5.0); ANION GAP 9.5 MEQ/L (5-15); BILIRUBIN,TOTAL 1.3 mg/dL (0.2-1.3); Calcium 9.2 mg/dL (8.4-10.2); Creatinine 1 0.78 mg/dL (0.66-1.25); EST GLOMERULAR FILTRATION RATE 114.2 ML/MIN; MAGNESIUM 2.1 mg/dL (1.6-2.3); Potassium 3.5 mmol/L (3.5-5.1); Total Protein 7.3 g/dL (6.3-8.2)
[2023-10-09 08:04] VITALS: RESP 18; TEMP 97.8
[2023-10-09] MEDS ORDERED: NORCO 5/325 MG PO PRN (09:00)
[2023-10-09] MEDS: ENOXAPARIN SODIUM SQ SCH (09:29)
[2023-10-09] MEDS: hydroDIURIL 25 MG PO SCH (09:29)
[2023-10-09] MEDS: Zestril 20 MG PO SCH (09:29)
--- NOTE | 2023-10-09 09:43 | PCM.DS ---
Discharge Summary Date of Admission: 10/08/23 01:27 Date of Discharge: 10/09/23 Admitting Physician: JOE BURCIAGA MD Primary Care Provider: DORA LEE <MARYANA MIJARES - Last Filed: 10/09/23 11:13> Date of Admission: 10/08/23 01:27 Admitting Physician: JOE BURCIAGA MD Primary Care Provider: DORA LEE <SANDY NIX - Last Filed: 10/09/23 22:10> Allergies <MARYANA MIJARES - Last Filed: 10/09/23 11:13> <SANDY NIX - Last Filed: 10/09/23 22:10> Allergies No Known Drug Allergies Allergy (Verified 10/07/23 22:13) Hospital Summary - Hospital Course Hospital Course: Mr. Rubio is a 43 year-old gentleman with HTN and recurrent pancreatitis who presents with pancreatitis. He admits to crampy abdominal pain since Wednesday morning after drinking two beers with his dinner on Wednesday night. Upon arrival to [place], laboratory data and imaging both confirmed pancreatitis. During hospital course supportive therapies with IVF, anti-emetics, and pain control initiated with noted improvement. Lipase levels/LFTs trending down. Patient states he did consume a few beers prior to each episode but he does not drink on a regular basis. Advised GI consult as OP as this is his second episode of acute pancreatitis, which has been scheduled. Patient able to tolerate a diet today wi th no episodes of N/V, abdominal pain controlled. Patient is stable and ready for discharge. Will send home with a few days of [place] and zofran for prn use. Discharge Note New Diagnosis: Acute pancreatitis New Medications: Zofran/[place] Follow Up: PCP/GI Latest Assessment & Plan (1) Acute pancreatitis Current Visit: Yes Status: Acute Assessment & Plan: -CT showing 1. Redemonstration of fat stranding around the head, neck, and uncinate process of pancreas with minimal peripancreatic fluid in this region, representing acute pancreatitis. 2. Similar changes in the previous CT study dated 06/21/2023, with relatively lesser inflammatory changes and peripancreatic fluid at the present study, could represent residual changes or new events of acute pancreatitis at present. 3. Stable hepatomegaly with fatty changes and few hypodense lesions, likely representing hepatic cysts/ hemangioma. -Lipase trending down 4090<4299 -Aggressive hydration -CLD- ADAT -Anti-emetics -pain control -US abd pending -lipid Code(s): K85.90 - ACUTE PANCREATITIS WITHOUT NECROSIS OR INFECTION, UNSP (2) Hyponatremia Current Visit: Yes Status: Acute Assessment & Plan: -most likely secondary to hypovolemia -IVF -Continue to monitor renal/lytes daily Code(s): E87.1 - HYPO-OSMOLALITY AND HYPONATREMIA (3) Transaminitis Current Visit: Yes Status: Acute Assessment & Plan: -continue to trend, pt noted with fatty liver on CT Code(s): R74.01 - ELEVATION OF LEVELS OF LIVER TRANSAMINASE LEVELS (4) Hypertension Current Visit: Yes Status: Acute Assessment & Plan: -continue home meds Code(s): I10 - ESSENTIAL (PRIMARY) HYPERTENSION I spent 35 minutes [id number] with the patient on the day of discharge performing discharge exam, discussing hospital stay and discharge instructions with patient and caregivers, preparation of discharge records, prescriptions & referral forms and addressing any questions/concerns the patient had as documented above. - Vitals & Intake/Output Vital Signs: Vital Signs Temperature 97.8 F 10/09/23 08:00 Pulse Rate 80 10/09/23 08:00 Respiratory Rate 18 10/09/23 08:00 Blood Pressure 128/81 10/09/23 08:00 O2 Sat by Pulse Oximetry 97 10/09/23 08:00 Intake & Output: Intake & Output 10/06/23 10/07/23 10/08/23 10/09/23 11:59 11:59 11:59 11:59 Intake Total 474 520 Output Total 350 0 Balance 124 520 Weight 99.337 kg - Lab Result Diagrams: 10/09/23 05:23 10/09/23 05:23 Lab Results-Last 24 Hrs: Lab Results-Last 24 Hours 10/09/23 10/09/23 Range/Units 05:23 05:23 WBC 7.5 (4.0-10.5) x10^3/uL RBC 4.53 (4.1-5.6) x10^6/uL Hgb 14.2 (12.5-18.0) g/dL Hct 42.0 (42-50) % MCV 92.7 (78-100) fL MCH 31.3 (26-32) pg MCHC 33.8 (32-36) g/dL RDW 12.2 (11.5-14.0) % Plt Count 287 (150-450) x10^3/uL MPV 8.9 (7.5-11.0) fL Gran % 62.2 (36.0-66.0) % Immature Gran % (Auto) 0.4 (0.00-0.4) % Nucleat RBC Rel Count 0.0 (0.00-0.1) % Eos # (Auto) 0.32 (0-0.5) x10^3/uL Immature Gran # (Auto) 0.03 (0.00-0.03) x10^3u/L Absolute Lymphs (auto) 1.86 (1.0-4.6) x10^3/uL Absolute Monos (auto) 0.59 (0.0-1.3) x10^3/uL Absolute Nucleated RBC 0.00 (0.00-0.01) x10^3u/L Lymphocytes % 24.9 (24.0-44.0) % Monocytes % 7.9 (0.0-12.0) % Eosinophils % 4.3 (0.00-5.0) % Basophils % 0.3 (0.0-0.4) % Absolute Granulocytes 4.66 (1.4-6.9) x10^3/uL Basophils # 0.02 (0-0.4) x10^3/uL Sodium 132 L (137-145) mmol/L Potassium 3.5 (3.5-5.1) mmol/L Chloride 99 (98-107) mmol/L Carbon Dioxide 27 (22-30) mmol/L Anion Gap 9.5 (5-15) MEQ/L BUN 9 (9-20) mg/dL Creatinine 0.78 (0.66-1.25) mg/dL Estimated GFR 114.2 ML/MIN Glucose 95 (74-106) mg/dL Calcium 9.2 (8.4-10.2) mg/dL Magnesium 2.1 (1.6-2.3) mg/dL Total Bilirubin 1.30 (0.2-1.3) mg/dL AST 74 H (17-59) U/L ALT 120 H (0-50) U/L Alkaline Phosphatase 76 (38-126) U/L Serum Total Protein 7.3 (6.3-8.2) g/dL Albumin 4.2 (3.5-5.0) g/dL Lipase 1325 H (23-300) U/L - Radiology Exams Ordered Rad Exams-Entire Visit: Radiology Procedures Category Date Time Status ABDOMEN AND PELVIS W/0 CONTRAS [CT] Stat Exams 10/07/23 23:39 Completed Ultrasound Gallbladder [GALLBLADDER] [US] Routine Exams 10/08/23 05:03 Completed <MARYANA MIJARES - Last Filed: 10/09/23 11:13> - Vitals & Intake/Output Vital Signs: Vital Signs Temperature 97.8 F 10/09/23 12:00 Pulse Rate 71 10/09/23 12:00 Respiratory Rate 18 10/09/23 12:00 Blood Pressure 130/80 10/09/23 12:00 O2 Sat by Pulse Oximetry 99 10/09/23 20:02 Intake & Output: Intake & Output 10/07/23 10/08/23 10/09/23 10/10/23 11:59 11:59 11:59 11:59 Intake Total 474 520 Output Total 350 0 Balance 124 520 Weight 99.337 kg - Lab Result Diagrams: 10/09/23 05:23 10/09/23 05:23 Lab Results-Last 24 Hrs: Lab Results-Last 24 Hours 10/09/23 10/09/23 Range/Units 05:23 05:23 WBC 7.5 (4.0-10.5) x10^3/uL RBC 4.53 (4.1-5.6) x10^6/uL Hgb 14.2 (12.5-18.0) g/dL Hct 42.0 (42-50) % MCV 92.7 (78-100) fL MCH 31.3 (26-32) pg MCHC 33.8 (32-36) g/dL RDW 12.2 (11.5-14.0) % Plt Count 287 (150-450) x10^3/uL MPV 8.9 (7.5-11.0) fL Gran % 62.2 (36.0-66.0) % Immature Gran % (Auto) 0.4 (0.00-0.4) % Nucleat RBC Rel Count 0.0 (0.00-0.1) % Eos # (Auto) 0.32 (0-0.5) x10^3/uL Immature Gran # (Auto) 0.03 (0.00-0.03) x10^3u/L Absolute Lymphs (auto) 1.86 (1.0-4.6) x10^3/uL Absolute Monos (auto) 0.59 (0.0-1.3) x10^3/uL Absolute Nucleated RBC 0.00 (0.00-0.01) x10^3u/L Lymphocytes % 24.9 (24.0-44.0) % Monocytes % 7.9 (0.0-12.0) % Eosinophils % 4.3 (0.00-5.0) % Basophils % 0.3 (0.0-0.4) % Absolute Granulocytes 4.66 (1.4-6.9) x10^3/uL Basophils # 0.02 (0-0.4) x10^3/uL Sodium 132 L (137-145) mmol/L Potassium 3.5 (3.5-5.1) mmol/L Chloride 99 (98-107) mmol/L Carbon Dioxide 27 (22-30) mmol/L Anion Gap 9.5 (5-15) MEQ/L BUN 9 (9-20) mg/dL Creatinine 0.78 (0.66-1.25) mg/dL Estimated GFR 114.2 ML/MIN Glucose 95 (74-106) mg/dL Calcium 9.2 (8.4-10.2) mg/dL Magnesium 2.1 (1.6-2.3) mg/dL Total Bilirubin 1.30 (0.2-1.3) mg/dL AST 74 H (17-59) U/L ALT 120 H (0-50) U/L Alkaline Phosphatase 76 (38-126) U/L Serum Total Protein 7.3 (6.3-8.2) g/dL Albumin 4.2 (3.5-5.0) g/dL Lipase 1325 H (23-300) U/L - Radiology Exams Ordered Rad Exams-Entire Visit: Radiology Procedures Category Date Time Status ABDOMEN AND PELVIS W/0 CONTRAS [CT] Stat Exams 10/07/23 23:39 Completed Ultrasound Gallbladder [GALLBLADDER] [US] Routine Exams 10/08/23 05:03 Completed <SANDY NIX - Last Filed: 10/09/23 22:10> Discharge Exam General Appearance: no apparent distress Neurologic Exam: alert, oriented x 3, cooperative Eye Exam: PERRL Ears, Nose, Throat Exam: normal ENT inspection Neck Exam: normal inspection Respiratory Exam: normal breath sounds, lungs clear Cardiovascular Exam: regular rate/rhythm, normal heart sounds Gastrointestinal/Abdomen Exam: soft, normal bowel sounds Male Genitalia Exam: deferred Rectal Exam: deferred Back Exam: normal inspection Extremity Exam: normal inspection Skin Exam: normal color <MARYANA MIJARES - Last Filed: 10/09/23 11:13> Final Diagnosis/Problem List - Final Discharge Diagnosis/Problem (1) Acute pancreatitis Status: Acute Code(s): K85.90 - ACUTE PANCREATITIS WITHOUT NECROSIS OR INFECTION, UNSP (2) Hyponatremia Status: Acute Code(s): E87.1 - HYPO-OSMOLALITY AND HYPONATREMIA (3) Transaminitis Status: Acute Code(s): R74.01 - ELEVATION OF LEVELS OF LIVER TRANSAMINASE LEVELS (4) Hypertension Status: Acute Code(s): I10 - ESSENTIAL (PRIMARY) HYPERTENSION <MARYANA MIJARES - Last Filed: 10/09/23 11:13> <MARYANA MIJARES - Last Filed: 10/09/23 11:13> <SANDY NIX - Last Filed: 10/09/23 22:10> - Discharge Disposition: Home, Self-Care Condition: Stable Prescriptions: New Hydrocodone/Acetaminophen [Hydrocodone-Acetamin 5-325 mg] 1 tab PO Q4HPRN PRN 3 Days #18 tablet MDD 6 PRN Reason: Pain Ondansetron ODT 4 MG [Zofran Odt 4 mg] 4 mg PO Q6H PRN PRN #10 tablet PRN Reason: Nausea Continue PANTOPRAZOLE 40 mg Tablet [Protonix 40MG Tablet] 40 mg PO QAM #30 tab Lisinopril/Hydrochlorothiazide [Lisinopril-Hctz 20-12.5 mg Tab] 2 each PO DAILY Instructions: Pancreatitis (DC) Follow up with: DORA LEE MD [Primary Care Provider] - Call for Appointment DIOMEDES SAENZ JR [NON-STAFF PHY W/O PRIVILEGES] - 01/17/24 1:30 pm (Nessa Patton/INJECTION MOLDING PROCESS TECHNICIAN will see patient fax paper work at discharge to [phone]) LACIE Encounter - LACIE Encounter Attestation LACIE Encounter Attestation: "IhSHALOM Franklin andhavediscussed pertinent aspects of their care with Maryana Mijares and agree with the history, physical exam (any modifications based on my personal exam will be noted below), assessment, and plan as outlined in original note. Please see immediately below for my summary of findings and additional assessment and plan along with any meaningful corrections/explanations to the Subjective/Objective portions of the LACIE note will be noted." My portion of the encounter took place via telemedicine. <SANDY NIX - Last Filed: 10/09/23 22:10>
[2023-10-09] MEDS ORDERED: Protonix 40MG Tablet PO SCH (10:00)
[2023-10-09 12:02] VITALS: BP 130/80; PULSE 71
[2023-10-09 18:37] VITALS: O2SAT 99
== END 2023-10-09 12:55 | disposition home or self-care (01) | DRG 439 ==
LOC: ED 22:01 → OBSVTOIN 10-08 01:27 → MED SURG 10-08 01:27
PROVIDERS: ADMIT Internal Medicine Critical Care Medicine; ATTEND Internal Medicine Critical Care Medicine
DX: K85.90 Acute pancreatitis without necrosis or infection, unspecified (principal); E87.1 Hypo-osmolality and hyponatremia; R74.01 Elevation of levels of liver transaminase levels; I10 Essential (primary) hypertension; Z79.899 Other long term (current) drug therapy; Z20.828 Contact with and (suspected) exposure to other viral communicable diseases
CPT/HCPCS: 36000; 36415; 74176; 76705; 80053; 80061; 81001; 83690; 83721; 83735; 84484; 85025; 85027; 94760; 96374; 96375; 99285; G0378; J1170; J1650; J2270; J2405; Q3014; A9270-GY

== ENCOUNTER 2023-12-25 19:02 | Inpatient (IN) | payer OTHER ==
--- NOTE | 2023-12-25 19:15 | ERPHSYRPT ---
- History of Present Illness Time Seen by Provider: 12/25/23 19:04 Historian: patient Exam Limitations: no limitations Physician History: Pt states he has had non-radiating 10/10 epigastric pain for the past 4 hours with chills & diaphoresis with the pain and vomiting x4 without blood; LBM was tgoday & wnl. Allergies/Adverse Reactions: No Known Drug Allergies Allergy (Verified 12/25/23 19:06) Home Medications: Lisinopril/Hydrochlorothiazide [Lisinopril-Hctz 20-12.5 mg Tab] 2 each PO DAILY 10/07/23 [History] Hx Tetanus, Diphtheria Vaccination/Date Given: Yes Hx Influenza Vaccination/Date Given: Yes Hx Pneumococcal Vaccination/Date Given: No - Review of Systems Constitutional: Chills, No Fever Ears, Nose, & Throat: No Ear Pain, No Throat Pain Respiratory: No Dyspnea Cardiac: No Chest Pain Abdominal/Gastrointestinal: Abdominal Pain, Vomiting, No Diarrhea Genitourinary Symptoms: No Dysuria Skin: No Rash - Past Medical History Pertinent Past Medical History: Yes Neurological History: No Pertinent History Cardiac History: Hypertension Respiratory History: No Pertinent History Endocrine Medical History: No Pertinent History Musculoskeletal History: Osteoarthritis GI Medical History: GERD, Pancreatitis History: No Pertinent History Psycho-Social History: No Pertinent History Male Reproductive Disorders: No Pertinent History Other Medical History: HX LEFT ROTATOR CUFF REPAIR 2020, OSTEOCHONDROMA REMOVAL RIGHT FEMUR PROXIMAL 2018 - Past Surgical History Past Surgical History: Yes Neuro Surgical History: No Pertinent History Cardiac: No Pertinent History Respiratory: No Pertinent History Gastrointestinal: No Pertinent History Genitourinary: No Pertinent History Musculoskeletal: Other Male Surgical History: No Pertinent History Other Surgical History: l4 l5 fusion. right hip. bicep and tendon in shoulder. back surgery - Social History Smoking Status: Never smoker Exposure to second hand smoke: No Drug Use: none Patient Lives Alone: No - Nursing Vital Signs Nursing Vital Signs: Initial Vital Signs Pulse Rate 77 12/25/23 19:02 Respiratory Rate 18 12/25/23 19:02 Blood Pressure 163/102 12/25/23 19:02 O2 Sat by Pulse Oximetry 95 12/25/23 19:02 Pain Scale Pain Intensity 8 - Physical Exam General Appearance: alert Eye Exam: PERRL/EOMI Ears, Nose, Throat Exam: TMs normal, pharynx normal, moist mucous membranes Neck Exam: normal inspection Respiratory Exam: lungs clear Cardiovascular Exam: normal heart sounds Gastrointestinal/Abdomen Exam: soft, normal bowel sounds, tenderness (mild upper abdominal tenderness) Extremity Exam: No pedal edema Neurologic Exam: alert, cooperative SpO2 Interpretation: normal SpO2: 99 O2 Delivery: Room Air - Course EKG Interpreted by Me: RATE (97), Sinus Rhythm, NORMAL AXIS, Other (QTc = 455) - CT Exams Abdomen/Pelvis CT Interpretation: Tele-radiologist Report (Redomonstration of fat stranding around the head, neck and uncinate process of pancreas with minimal peripancreatic fluid in this region representing acute pancreatitis. See rest of report.) Ordered Tests: Active Orders 24 hr Category Date Time Status EKG-ER Only STAT Care 12/25/23 19:12 Active IV Insertion STAT Care 12/25/23 19:12 Active ABDOMEN AND PELVIS W/0 CONTRAS [CT] Stat Exams 12/25/23 19:13 Completed AMYLASE Stat Lab 12/25/23 19:27 Completed CBC W DIFF Stat Lab 12/25/23 19:27 Completed CMP Stat Lab 12/25/23 19:27 Completed LIPASE Stat Lab 12/25/23 19:27 Completed MAGNESIUM Stat Lab 12/25/23 19:27 Completed TROPONIN Q4H Lab 12/25/23 19:27 Completed TROPONIN Q4H Lab 12/25/23 23:15 Ordered TROPONIN Q4H Lab 12/26/23 03:15 Ordered UA W/RFX UR CULTURE Stat Lab 12/25/23 20:47 Completed Medication Summary Generic Name Dose Route Start Last Admin Trade Name Freq PRN Reason Stop Dose Admin Sodium Chloride 1,000 mls @ 100 mls/hr 12/25/23 19:15 12/25/23 19:19 Sodium Chloride 0.9% 1000 Ml IV 01/24/24 19:14 100 mls/hr .Q10H LORETTA Administration Piperacillin Sod/Tazobactam 100 mls @ 200 mls/hr 12/25/23 22:00 Sod 3.375 gm/ Sodium Chloride IV 12/25/23 22:29 STAT ONE Discontinued Medications Generic Name Dose Route Start Last Admin Trade Name Freq PRN Reason Stop Dose Admin Hydromorphone HCl 1 mg 12/25/23 19:12 12/25/23 19:21 Hydromorphone 1 Mg/1ml Inj IV 12/25/23 19:13 1 mg STAT ONE Administration Hydromorphone HCl Confirm 12/25/23 19:16 Hydromorphone 1 Mg/1ml Inj Administered 12/25/23 19:17 Dose 1 mg .ROUTE .STK-MED ONE Hydromorphone HCl 1 mg 12/25/23 19:48 12/25/23 19:52 Hydromorphone 1 Mg/1ml Inj IV 12/25/23 19:49 1 mg STAT ONE Administration Hydromorphone HCl Confirm 12/25/23 19:51 Hydromorphone 1 Mg/1ml Inj Administered 12/25/23 19:52 Dose 1 mg .ROUTE .STK-MED ONE Hydromorphone HCl 1 mg 12/25/23 22:08 Hydromorphone 1 Mg/1ml Inj IV 12/25/23 22:09 STAT ONE Sodium Chloride Confirm 12/25/23 22:08 Sodium Chloride 100ml Mini-Bag Plus Administered 12/25/23 22:09 Dose 100 mls @ ud IV .STK-MED ONE Morphine Sulfate 4 mg 12/25/23 21:02 12/25/23 21:04 Morphine Sulfate 4 Mg/Ml Injection IV 12/25/23 21:03 4 mg STAT ONE Administration Morphine Sulfate Confirm 12/25/23 21:04 Morphine Sulfate 4 Mg/Ml Injection Administered 12/25/23 21:05 Dose 4 mg .ROUTE .STK-MED ONE Ondansetron HCl 4 mg 12/25/23 19:12 12/25/23 19:19 Ondansetron Hcl 4 Mg/2 Ml Vial IV 12/25/23 19:13 4 mg STAT ONE Administration Ondansetron HCl Confirm 12/25/23 19:16 Ondansetron Hcl 4 Mg/2 Ml Vial Administered 12/25/23 19:17 Dose 4 mg .ROUTE .STK-MED ONE Piperacillin Sod/Tazobactam Sod Confirm 12/25/23 22:06 Piperacillin/Tazobactam Sodium 3.375 Gm Vial Administered 12/25/23 22:07 Dose 3.375 gm IV .STK-MED ONE Piperacillin Sod/Tazobactam Sod Confirm 12/25/23 22:08 Piperacillin/Tazobactam Sodium 3.375 Gm Vial Administered 12/25/23 22:09 Dose 3.375 gm IV .[facility] to [facility] ONE Lab/Rad Data: Laboratory Result Diagrams 12/25/23 19:27 12/25/23 19:27 Laboratory Results 12/25/23 12/25/23 12/25/23 Range/Units 20:47 19:27 19:27 WBC (4.0-10.5) x10^3/uL RBC (4.1-5.6) x10^6/uL Hgb (12.5-18.0) g/dL Hct (42-50) % MCV (78-100) fL MCH (26-32) pg MCHC (32-36) g/dL RDW (11.5-14.0) % Plt Count (150-450) x10^3/uL MPV (7.5-11.0) fL Gran % (36.0-66.0) % Immature Gran % (Auto) (0.00-0.4) % Nucleat RBC Rel Count (0.00-0.1) % Eos # (Auto) (0-0.5) x10^3/uL Immature Gran # (Auto) (0.00-0.03) x10^3u/L Absolute Lymphs (auto) (1.0-4.6) x10^3/uL Absolute Monos (auto) (0.0-1.3) x10^3/uL Absolute Nucleated RBC (0.00-0.01) x10^3u/L Lymphocytes % (24.0-44.0) % Monocytes % (0.0-12.0) % Eosinophils % (0.00-5.0) % Basophils % (0.0-0.4) % Absolute Granulocytes (1.4-6.9) x10^3/uL Basophils # (0-0.4) x10^3/uL Sodium 135 (135-145) mmol/L Potassium 3.4 L (3.5-5.1) mmol/L Chloride 99 (98-107) mmol/L Carbon Dioxide 20 L (22-30) mmol/L Anion Gap 19.0 H (5-15) MEQ/L BUN 19 (9-20) mg/dL Creatinine 1.01 (0.66-1.25) mg/dL Estimated GFR 95.2 ML/MIN Glucose 192 H (74-106) mg/dL Calcium 10.3 H (8.4-10.2) mg/dL Magnesium 1.6 (1.6-2.3) mg/dL Total Bilirubin 0.60 (0.2-1.3) mg/dL AST 92 H (17-59) U/L ALT 112 H (0-50) U/L Alkaline Phosphatase 99 (38-126) U/L Troponin I < 0.012 (0.000-0.034) ng/mL Serum Total Protein 8.1 (6.3-8.2) g/dL Albumin 4.6 (3.5-5.0) g/dL Amylase 1548 H (30-110) U/L Lipase 99388 H (23-300) U/L Urine Color Yellow (Yellow) Urine Appearance Clear (Clear) Urine pH 5.5 (4.6-8.0) Ur Specific [place] 1.015 (1.005-1.030) Urine Protein Negative (Negative) Urine Glucose (UA) Negative (Negative) mg/dL Urine Ketones Trace A (Negative) Urine Blood Negative (Negative) Urine Nitrite Negative (Negative) Urine Bilirubin Negative (Negative) Urine Urobilinogen 0.2 (0.2) mg/dL Ur Leukocyte Esterase Trace A (Negative) U Hyaline Cast (Auto) NONE SEEN (0-2) /LPF Urine Microscopic RBC 0-2 (0-5) /HPF Urine Microscopic WBC 0-2 (0-5) /HPF Ur Epithelial Cells None Seen (None Seen) /HPF Urine Bacteria None Seen (None Seen) /HPF Urine Culture Reflexed NO (NO) Slides for Path Review 12/25/23 Range/Units 19:27 WBC 18.9 H (4.0-10.5) x10^3/uL RBC 5.18 (4.1-5.6) x10^6/uL Hgb 16.3 (12.5-18.0) g/dL Hct 47.3 (42-50) % MCV 91.3 (78-100) fL MCH 31.5 (26-32) pg MCHC 34.5 (32-36) g/dL RDW 12.6 (11.5-14.0) % Plt Count 397 (150-450) x10^3/uL MPV 8.6 (7.5-11.0) fL Gran % 63.8 (36.0-66.0) % Immature Gran % (Auto) 0.5 H (0.00-0.4) % Nucleat RBC Rel Count 0.0 (0.00-0.1) % Eos # (Auto) 0.08 (0-0.5) x10^3/uL Immature Gran # (Auto) 0.10 H (0.00-0.03) x10^3u/L Absolute Lymphs (auto) 4.95 H (1.0-4.6) x10^3/uL Absolute Monos (auto) 1.65 H (0.0-1.3) x10^3/uL Absolute Nucleated RBC 0.00 (0.00-0.01) x10^3u/L Lymphocytes % 26.2 (24.0-44.0) % Monocytes % 8.7 (0.0-12.0) % Eosinophils % 0.4 (0.00-5.0) % Basophils % 0.4 (0.0-0.4) % Absolute Granulocytes 12.05 H (1.4-6.9) x10^3/uL Basophils # 0.07 (0-0.4) x10^3/uL Sodium (135-145) mmol/L Potassium (3.5-5.1) mmol/L Chloride (98-107) mmol/L Carbon Dioxide (22-30) mmol/L Anion Gap (5-15) MEQ/L BUN (9-20) mg/dL Creatinine (0.66-1.25) mg/dL Estimated GFR ML/MIN Glucose (74-106) mg/dL Calcium (8.4-10.2) mg/dL Magnesium (1.6-2.3) mg/dL Total Bilirubin (0.2-1.3) mg/dL AST (17-59) U/L ALT (0-50) U/L Alkaline Phosphatase (38-126) U/L Troponin I (0.000-0.034) ng/mL Serum Total Protein (6.3-8.2) g/dL Albumin (3.5-5.0) g/dL Amylase (30-110) U/L Lipase (23-300) U/L Urine Color (Yellow) Urine Appearance (Clear) Urine pH (4.6-8.0) Ur Specific [place] (1.005-1.030) Urine Protein (Negative) Urine Glucose (UA) (Negative) mg/dL Urine Ketones (Negative) Urine Blood (Negative) Urine Nitrite (Negative) Urine Bilirubin (Negative) Urine Urobilinogen (0.2) mg/dL Ur Leukocyte Esterase (Negative) U Hyaline Cast (Auto) (0-2) /LPF Urine Microscopic RBC (0-5) /HPF Urine Microscopic WBC (0-5) /HPF Ur Epithelial Cells (None Seen) /HPF Urine Bacteria (None Seen) /HPF Urine Culture Reflexed (NO) Slides for Path Review YES - Progress Discussed with .: Marilin (Spoke with and discussed pt with Dr. Santoyo who will admit pt to [facility]([id number])), Other Counseled pt/family regarding: diagnosis Medical Desision Making - Diagnostic Testing Diagnostic test were ordered, analyzed, and reviewed by me: Yes Radiological Interpretation: Teleradiologist Report - Departure Departure Disposition: In-patient Admission Clinical Impression: Acute Pancreatitis, Leukocytosis Condition: Stable Critical Care Time: No Referrals: DORA LEE MD [Primary Care Provider] - Follow up/PCP as directed
[2023-12-25] MEDS ORDERED: Zofran 4 MG/2 ML VIAL ONE (19:16)
[2023-12-25] MEDS ORDERED: Hydromorphone 1 mg/ml Injection ONE ×2 (19:16→19:51)
[2023-12-25] MEDS: Zofran 4 MG/2 ML VIAL IV ONE (19:19)
[2023-12-25] MEDS: Sodium Chloride 0.9% 1000 ML 1,000 ML IV SCH (19:19)
[2023-12-25] MEDS: Hydromorphone 1 mg/ml Injection IV ONE ×3 (19:21→22:26)
[2023-12-25 19:30] LABS: Absolute Neutrophil Ct (ANC) 12.05 x10^3/uL (1.4-6.9); BASOPHIL % 0.4 % (0.0-0.4); Basophil (Absolute #) 0.07 x10^3/uL (0-0.4); Eosinophil % 0.4 % (0.00-5.0); Eosinophil (Absolute #) 0.08 x10^3/uL (0-0.5); Hematocrit 47.3 % (42-50); Hemoglobin 16.3 g/dL (12.5-18.0); IMMATURE GRAN % 0.5 % (0.00-0.4); Lymphocyte (Absolute #) 4.95 x10^3/uL (1.0-4.6); Lymphocytes % 26.2 % (24.0-44.0); Mean Cell Volume 91.3 fL (78-100); Mean Corpuscular Hemoglobin 31.5 pg (26-32); Mean Corpuscular Hgb Concent. 34.5 g/dL (32-36); Mean Platelet Volume 8.6 fL (7.5-11.0); Monocyte (Absolute #) 1.65 x10^3/uL (0.0-1.3); Monocytes % 8.7 % (0.0-12.0); Neutrophil % 63.8 % (36.0-66.0); Platelet Count 397 x10^3/uL (150-450); Red Blood Count 5.18 x10^6/uL (4.1-5.6); Red Cell Distribution Width 12.6 % (11.5-14.0); White Blood Count 18.9 x10^3/uL (4.0-10.5)
[2023-12-25 19:58] LABS: ALBUMIN 4.6 g/dL (3.5-5.0); BILIRUBIN,TOTAL 0.6 mg/dL (0.2-1.3); Calcium 10.3 mg/dL (8.4-10.2); Creatinine 1 1.01 mg/dL (0.66-1.25); EST GLOMERULAR FILTRATION RATE 95.2 ML/MIN; MAGNESIUM 1.6 mg/dL (1.6-2.3); Potassium 3.4 mmol/L (3.5-5.1); Total Protein 8.1 g/dL (6.3-8.2)
--- NOTE | 2023-12-25 20:39 | XRAY ---
CLINICAL HISTORY: pain COMPARISON: 10/07/2023 TECHNIQUE: A CT scan of the abdomen and pelvis was performed without IV contrast. Coronal and sagittal reconstructive images were also obtained. FINDINGS: Sections of the lower thorax are unremarkable Abdomen: Redemonstration of fat stranding around the head, neck, and uncinate process of pancreas with minimal peripancreatic fluid in this region, representing acute pancreatitis. Nearly similar changes in the previous CT study could represent residual changes or new events of acute pancreatitis at present. The liver is enlarged in size, measuring 21 cm, and shows diffuse hypoattenuation. Stable ill-defined small hypodense lesions were noted in both lobes of the liver, likely representing hepatic cyst/hemangioma. The intrahepatic biliary radicals and the bile ducts are normal. The gallbladder is distended. There is no evidence of wall thickening/ pericholecystic collection. The spleen, and adrenal glands are unremarkable. The kidneys are normal in size and shape. No calculi or hydronephrosis. There is a 0.7 cm hypodense area in the right renal midpole, most likely a cyst, benign stable since ultrasound dated 06/22/2023 The visualized small bowel loops are unremarkable. The appendix appears unremarkable. Fat attenuation noted in the submucosa of the descending colon could represent chronic colitis. There are few sub-centimetric mesenteric nodes. Pelvis: The urinary bladder is unremarkable. The rectosigmoid colon is unremarkable. The prostate appears unremarkable. No evidence of pelvic lymphadenopathy. Post L4-L5 lumbar fixation status with mild anterolisthesis of L4 over L5. IMPRESSION: 1. Redemonstration of fat stranding around the head, neck, and uncinate process of pancreas with minimal peripancreatic fluid in this region, representing acute pancreatitis. 2. Nearly similar changes in the previous CT study could represent residual changes or new events of acute pancreatitis at present. 3. Stable hepatomegaly with fatty changes and few hypodense lesions, likely representing hepatic cysts/ hemangioma. Electronically Signed by: Kaiser Wynn MD. (12/25/2023 20:34:30 EDT)
[2023-12-25 20:55] LABS: Appearance Clear (Clear); Bacteria None Seen /HPF (None Seen); Bilirubin Negative (Negative); Blood Negative (Negative); Epithelial Cells None Seen /HPF (None Seen); Glucose, Urine Negative (Negative); Hyaline Casts NONE SEEN /LPF (0-2); Ketones Trace (Negative); Leukocyte Esterase Trace (Negative); Nitrite Negative (Negative); Ph 5.5 (4.6-8.0); Protein,Urine Dip Negative (Negative); RBC 0-2 /HPF (0-5); Specific Gravity 1.015 (1.005-1.030); Urobilinogen 0.2 mg/dL (0.2); WBC 0-2 /HPF (0-5)
[2023-12-25 20:58] LABS: Slide Review 1 YES
[2023-12-25 20:59] LABS: ADD URINE CULTURE? NO (NO)
[2023-12-25] MEDS ORDERED: MORPHINE SULFATE 4 MG INJ ONE (21:04)
[2023-12-25] MEDS: MORPHINE SULFATE 4 MG INJ IV ONE (21:04)
[2023-12-25] MEDS ORDERED: PIPERACILLIN/TAZOBACTAM IV ONE ×3 (22:06→22:18)
[2023-12-25] MEDS ORDERED: Sodium Chloride 100ML MINI-BAG PLUS 0 ML IV ONE (22:08)
[2023-12-25] MEDS ORDERED: Sodium Chloride 100ML MINI-BAG PLUS 100 ML IV ONE (22:16)
--- NOTE | 2023-12-25 22:16 | PCM.HP ---
History of Present Illness - Chief Complaint Chief Complaint: Abdominal pain, acute pancreatitis History of Present Illness: is a 43 year old male who presents with acute abdominal pain, nausea, vomiting and CT scan showing acute pancreatitis, with labs confirming with very high amylase and lipase. No fevers, blood in stool, rashes. Had an MRI at 2 weeks ago that showed a normal pancreas. - Review of Systems Constitutional: No Fever, No Chills Eyes: No Symptoms Ears, Nose, & Throat: No Symptoms Respiratory: No Cough, No Short Of Breath Cardiac: No Chest Pain, No Edema, No Syncope Abdominal/Gastrointestinal: Abdominal Pain, No Nausea, No Vomiting, No Diarrhea Genitourinary Symptoms: No Dysuria Musculoskeletal: No Back Pain, No Neck Pain Skin: No Rash Neurological: No Dizziness, No Focal Weakness, No Sensory Changes Psychological: No Symptoms Endocrine: No Symptoms Hematologic/Lymphatic: No Symptoms Immunological/Allergic: No Symptoms Medications & Allergies Home Medications: Home Medication List PANTOPRAZOLE 40 mg Tablet [Protonix 40MG Tablet] 40 mg PO QAM #30 tab 04/16/22 [Rx Confirmed 10/07/23] Lisinopril/Hydrochlorothiazide [Lisinopril-Hctz 20-12.5 mg Tab] 2 each PO DAILY 10/07/23 [History Confirmed 10/07/23] Hydrocodone/Acetaminophen [Hydrocodone-Acetamin 5-325 mg] 1 tab PO Q4HPRN PRN 3 Days #18 tablet MDD 6 10/09/23 [Rx] Ondansetron ODT 4 MG [Zofran Odt 4 mg] 4 mg PO Q6H PRN PRN #10 tablet 10/09/23 [Rx] Allergies/Adverse Reactions: Allergies Allergy/AdvReac Type Severity Reaction Status Date / Time No Known Drug Allergies Allergy Verified 12/25/23 19:06 - Past Medical History Past Medical History: Yes Neurological History: No Pertinent History Cardiac History: Hypertension Respiratory History: No Pertinent History Endocrine Medical History: No Pertinent History Musculoskelatal History: Osteoarthritis GI Medical History: GERD, Pancreatitis History: No Pertinent History Pyscho-Social History: No Pertinent History Male Reproductive Disorders: No Pertinent History Comment: HX LEFT ROTATOR CUFF REPAIR 2020, OSTEOCHONDROMA REMOVAL RIGHT FEMUR PROXIMAL 2018 - Past Surgical History Past Surgical History: Yes Neuro Surgical History: No Pertinent History Cardiac History: No Pertinent History Respiratory Surgery: No Pertinent History GI Surgical History: No Pertinent History Genitourinary Surgical Hx: No Pertinent History Musculskeletal Surgical Hx: Other Male Surgical History: No Pertinent History Other Surgical History: l4 l5 fusion. right hip. bicep and tendon in shoulder. back surgery - Social History Smoking Status: Never smoker Exposure to second hand smoke: No Alcohol: Occasionally Drug Use: none - Social Determinants of Health Will the patient participate in the screening: Yes Do you worry about a steady place to live?: No Do you have any problems with any of the following?: No known problems In the past 12 months,have you had to go without utilities?: No Have you or anyone in your house had to go without enough: No Transportation Issues: No Has anyone in your support network made you feel unsafe?: No - Physical Exam Vital Signs: Vital Signs - 24 hr Pulse Resp BP BP Pulse Ox 12/25/23 22:08 99 12/25/23 21:45 78 179/110 97 12/25/23 21:41 161/102 93 L 12/25/23 21:30 168/120 94 L 12/25/23 21:12 86 20 168/106 97 12/25/23 21:00 84 17 164/113 97 12/25/23 20:30 77 16 143/92 95 12/25/23 20:25 73 17 173/104 95 12/25/23 19:03 98 H 22 163/102 99 12/25/23 19:02 77 18 163/102 95 General Appearance: no apparent distress, alert Neurologic Exam: alert, oriented x 3, cooperative, normal mood/affect, nml cerebellar function, nml station & gait, sensation nml, No motor deficits Eye Exam: PERRL/EOMI, eyes nml inspection Ears, Nose, Throat Exam: normal ENT inspection, TMs normal, pharynx normal, moist mucous membranes Neck Exam: normal inspection, non-tender, supple, full range of motion Respiratory Exam: normal breath sounds, lungs clear, No respiratory distress Cardiovascular Exam: regular rate/rhythm, normal heart sounds, normal peripheral pulses Gastrointestinal/Abdomen Exam: soft, normal bowel sounds, No tenderness, No mass Back Exam: normal inspection, normal range of motion, No CVA tenderness, No vertebral tenderness Extremity Exam: normal inspection, normal range of motion, pelvis stable Skin Exam: normal color, warm, dry, No rash Lymphatic Exam: No adenopathy Results - Labs Lab/Micro Results: Lab Results-Last 24 Hours 12/25/23 12/25/23 12/25/23 Range/Units 19:27 19:27 19:27 WBC 18.9 H (4.0-10.5) x10^3/uL RBC 5.18 (4.1-5.6) x10^6/uL Hgb 16.3 (12.5-18.0) g/dL Hct 47.3 (42-50) % MCV 91.3 (78-100) fL MCH 31.5 (26-32) pg MCHC 34.5 (32-36) g/dL RDW 12.6 (11.5-14.0) % Plt Count 397 (150-450) x10^3/uL MPV 8.6 (7.5-11.0) fL Gran % 63.8 (36.0-66.0) % Immature Gran % (Auto) 0.5 H (0.00-0.4) % Nucleat RBC Rel Count 0.0 (0.00-0.1) % Eos # (Auto) 0.08 (0-0.5) x10^3/uL Immature Gran # (Auto) 0.10 H (0.00-0.03) x10^3u/L Absolute Lymphs (auto) 4.95 H (1.0-4.6) x10^3/uL Absolute Monos (auto) 1.65 H (0.0-1.3) x10^3/uL Absolute Nucleated RBC 0.00 (0.00-0.01) x10^3u/L Lymphocytes % 26.2 (24.0-44.0) % Monocytes % 8.7 (0.0-12.0) % Eosinophils % 0.4 (0.00-5.0) % Basophils % 0.4 (0.0-0.4) % Absolute Granulocytes 12.05 H (1.4-6.9) x10^3/uL Basophils # 0.07 (0-0.4) x10^3/uL Sodium 135 (135-145) mmol/L Potassium 3.4 L (3.5-5.1) mmol/L Chloride 99 (98-107) mmol/L Carbon Dioxide 20 L (22-30) mmol/L Anion Gap 19.0 H (5-15) MEQ/L BUN 19 (9-20) mg/dL Creatinine 1.01 (0.66-1.25) mg/dL Estimated GFR 95.2 ML/MIN Glucose 192 H (74-106) mg/dL Calcium 10.3 H (8.4-10.2) mg/dL Magnesium 1.6 (1.6-2.3) mg/dL Total Bilirubin 0.60 (0.2-1.3) mg/dL AST 92 H (17-59) U/L ALT 112 H (0-50) U/L Alkaline Phosphatase 99 (38-126) U/L Troponin I < 0.012 (0.000-0.034) ng/mL Serum Total Protein 8.1 (6.3-8.2) g/dL Albumin 4.6 (3.5-5.0) g/dL Amylase 1548 H (30-110) U/L Lipase 04285 H (23-300) U/L Urine Color (Yellow) Urine Appearance (Clear) Urine pH (4.6-8.0) Ur Specific [place] (1.005-1.030) Urine Protein (Negative) Urine Glucose (UA) (Negative) mg/dL Urine Ketones (Negative) Urine Blood (Negative) Urine Nitrite (Negative) Urine Bilirubin (Negative) Urine Urobilinogen (0.2) mg/dL Ur Leukocyte Esterase (Negative) U Hyaline Cast (Auto) (0-2) /LPF Urine Microscopic RBC (0-5) /HPF Urine Microscopic WBC (0-5) /HPF Ur Epithelial Cells (None Seen) /HPF Urine Bacteria (None Seen) /HPF Urine Culture Reflexed (NO) Slides for Path Review YES 12/25/23 Range/Units 20:47 WBC (4.0-10.5) x10^3/uL RBC (4.1-5.6) x10^6/uL Hgb (12.5-18.0) g/dL Hct (42-50) % MCV (78-100) fL MCH (26-32) pg MCHC (32-36) g/dL RDW (11.5-14.0) % Plt Count (150-450) x10^3/uL MPV (7.5-11.0) fL Gran % (36.0-66.0) % Immature Gran % (Auto) (0.00-0.4) % Nucleat RBC Rel Count (0.00-0.1) % Eos # (Auto) (0-0.5) x10^3/uL Immature Gran # (Auto) (0.00-0.03) x10^3u/L Absolute Lymphs (auto) (1.0-4.6) x10^3/uL Absolute Monos (auto) (0.0-1.3) x10^3/uL Absolute Nucleated RBC (0.00-0.01) x10^3u/L Lymphocytes % (24.0-44.0) % Monocytes % (0.0-12.0) % Eosinophils % (0.00-5.0) % Basophils % (0.0-0.4) % Absolute Granulocytes (1.4-6.9) x10^3/uL Basophils # (0-0.4) x10^3/uL Sodium (135-145) mmol/L Potassium (3.5-5.1) mmol/L Chloride (98-107) mmol/L Carbon Dioxide (22-30) mmol/L Anion Gap (5-15) MEQ/L BUN (9-20) mg/dL Creatinine (0.66-1.25) mg/dL Estimated GFR ML/MIN Glucose (74-106) mg/dL Calcium (8.4-10.2) mg/dL Magnesium (1.6-2.3) mg/dL Total Bilirubin (0.2-1.3) mg/dL AST (17-59) U/L ALT (0-50) U/L Alkaline Phosphatase (38-126) U/L Troponin I (0.000-0.034) ng/mL Serum Total Protein (6.3-8.2) g/dL Albumin (3.5-5.0) g/dL Amylase (30-110) U/L Lipase (23-300) U/L Urine Color Yellow (Yellow) Urine Appearance Clear (Clear) Urine pH 5.5 (4.6-8.0) Ur Specific [place] 1.015 (1.005-1.030) Urine Protein Negative (Negative) Urine Glucose (UA) Negative (Negative) mg/dL Urine Ketones Trace A (Negative) Urine Blood Negative (Negative) Urine Nitrite Negative (Negative) Urine Bilirubin Negative (Negative) Urine Urobilinogen 0.2 (0.2) mg/dL Ur Leukocyte Esterase Trace A (Negative) U Hyaline Cast (Auto) NONE SEEN (0-2) /LPF Urine Microscopic RBC 0-2 (0-5) /HPF Urine Microscopic WBC 0-2 (0-5) /HPF Ur Epithelial Cells None Seen (None Seen) /HPF Urine Bacteria None Seen (None Seen) /HPF Urine Culture Reflexed NO (NO) Slides for Path Review - Radiology Impressions Radiology Exams & Impressions: Radiology Procedures Category Date Time Status ABDOMEN AND PELVIS W/0 CONTRAS [CT] Stat Exams 12/25/23 19:13 Completed Assessment/Plan (1) Acute pancreatitis Current Visit: No Status: Acute Assessment & Plan: 1. Pain control 2. IVF 3. Keep NPO Code(s): K85.90 - ACUTE PANCREATITIS WITHOUT NECROSIS OR INFECTION, UNSP Telemedicine Encounter - Telemedicine Encounter Telemedicine Encounter: The entirety of this encounter was performed via Telemedicine"
[2023-12-25] MEDS ORDERED: Sodium Chloride 0.9% 100 ML ONE (22:17)
[2023-12-25] MEDS: PIPERACILLIN/TAZOBACTAM 3.375 GM in Sodium Chloride 100ML MINI-BAG PLUS 100 ML IV ONE ×2 (22:21→22:31)
[2023-12-26] MEDS: Hydromorphone 1 mg/ml Injection IV ONE ×2 (01:16→08:15)
[2023-12-26] MEDS: PIPERACILLIN/TAZOBACTAM 3.375 GM in Sodium Chloride 100ML MINI-BAG PLUS 100 ML IV SCH (01:18)
[2023-12-26] MEDS: Hydromorphone 1 mg/ml Injection IV PRN ×2 (02:52→12:30)
[2023-12-26 03:24] LABS: Absolute Neutrophil Ct (ANC) 14.02 x10^3/uL (1.4-6.9); BASOPHIL % 0.2 % (0.0-0.4); Basophil (Absolute #) 0.04 x10^3/uL (0-0.4); Eosinophil (Absolute #) 0 x10^3/uL (0-0.5); Hemoglobin 16.3 g/dL (12.5-18.0); IMMATURE GRAN # 0.07 x10^3u/L (0.00-0.03); IMMATURE GRAN % 0.4 % (0.00-0.4); Lymphocyte (Absolute #) 0.97 x10^3/uL (1.0-4.6); Mean Cell Volume 93.4 fL (78-100); Mean Corpuscular Hemoglobin 31.7 pg (26-32); Mean Platelet Volume 8.7 fL (7.5-11.0); Monocyte (Absolute #) 1.07 x10^3/uL (0.0-1.3); Monocytes % 6.6 % (0.0-12.0); Neutrophil % 86.8 % (36.0-66.0); Platelet Count 287 x10^3/uL (150-450); Red Blood Count 5.14 x10^6/uL (4.1-5.6); Red Cell Distribution Width 12.8 % (11.5-14.0); White Blood Count 16.2 x10^3/uL (4.0-10.5)
[2023-12-26 03:37] LABS: ALBUMIN 4.4 g/dL (3.5-5.0); ANION GAP 14.5 MEQ/L (5-15); BILIRUBIN,TOTAL 0.8 mg/dL (0.2-1.3); Calcium 9.7 mg/dL (8.4-10.2); Creatinine 1 0.95 mg/dL (0.66-1.25); EST GLOMERULAR FILTRATION RATE 102.5 ML/MIN; Total Protein 7.7 g/dL (6.3-8.2)
[2023-12-26 04:32] LABS: Potassium 4.2 mmol/L (3.5-5.1)
[2023-12-26] MEDS ORDERED: APRESOLINE 20 MG/ML INJ IV PRN (07:23)
--- NOTE | 2023-12-26 08:05 | PCM.NOTE ---
Date and Time: 12/26/23 0800 Subjective Assessment: is a 43 year old male with PMHX of OA, GERD, and pancreatitis r/t social ETOH use. He presented to ER on 12/24 acute abdominal pain, nausea, vomiting. CT scan showing acute pancreatitis, with labs confirming with very high amylase and lipase. No fevers, blood in stool, rashes. Had an MRI at 2 weeks ago that showed a normal pancreas per pt. He reports he drank a few beers a couple days ago and then sxs started. He rates his abd. pain a 10/10 today with 1mg of dialudid. Will increase dose. Pt is NPO ad getting IVF. He denies CP, SOB, N/V/D today. - Review of Systems Constitutional: No Fever, No Chills Eyes: No Symptoms Ears, Nose, & Throat: No Symptoms Respiratory: No Cough, No Short Of Breath Cardiac: No Chest Pain, No Edema, No Syncope Abdominal/Gastrointestinal: Abdominal Pain, No Nausea, No Vomiting, No Diarrhea Genitourinary Symptoms: No Dysuria Musculoskeletal: No Back Pain, No Neck Pain Skin: No Rash Neurological: No Dizziness, No Focal Weakness, No Sensory Changes Psychological: No Symptoms Endocrine: No Symptoms Hematologic/Lymphatic: No Symptoms Immunological/Allergic: No Symptoms Objective Exam General Appearance: no apparent distress, mild distress, alert Neurologic Exam: alert, oriented x 3, cooperative, normal mood/affect, nml cere bellar function, sensation nml, No motor deficits Skin Exam: normal color, warm, dry Eye Exam: PERRL, EOMI, eyes nml inspection Ears, Nose, Throat Exam: normal ENT inspection, pharynx normal, moist mucous membranes Neck Exam: normal inspection, non-tender, supple, full range of motion Respiratory Exam: normal breath sounds, lungs clear, No respiratory distress Cardiovascular Exam: regular rate/rhythm, normal heart sounds Gastrointestinal/Abdomen Exam: soft, tenderness, guarding (LUQ RUQ), No mass Extremity Exam: normal inspection, normal range of motion Back Exam: normal inspection, normal range of motion, No CVA tenderness, No vertebral tenderness Male Genitalia Exam: deferred Rectal Exam: deferred Objective Data Vital Signs: Vital Signs - 24 hr Temp Pulse Resp BP BP Pulse Ox 12/26/23 07:01 98.5 F 84 18 169/105 96 12/26/23 04:00 96.3 F 72 18 169/106 97 12/25/23 22:59 98.3 F 101 H 20 171/105 96 12/25/23 22:19 99 12/25/23 21:45 78 179/110 97 12/25/23 21:41 161/102 93 L 12/25/23 21:30 168/120 94 L 12/25/23 21:12 86 20 168/106 97 12/25/23 21:00 84 17 164/113 97 12/25/23 20:30 77 16 143/92 95 12/25/23 20:25 73 17 173/104 95 12/25/23 19:03 98 H 22 163/102 99 12/25/23 19:02 77 18 163/102 95 Pain Assessment - Last Documented Pain Intensity 7 Pain Scale Used 0-10 Pain Scale Intake and Output: Intake & Output 12/23/23 12/24/23 12/25/23 12/26/23 11:59 11:59 11:59 11:59 Intake Total 752 Balance 752 Weight 99.8 kg Lab Results: Lab Results-Last 24 Hours 12/25/23 12/25/23 12/25/23 Range/Units 19:27 19:27 19:27 WBC 18.9 H (4.0-10.5) x10^3/uL RBC 5.18 (4.1-5.6) x10^6/uL Hgb 16.3 (12.5-18.0) g/dL Hct 47.3 (42-50) % MCV 91.3 (78-100) fL MCH 31.5 (26-32) pg MCHC 34.5 (32-36) g/dL RDW 12.6 (11.5-14.0) % Plt Count 397 (150-450) x10^3/uL MPV 8.6 (7.5-11.0) fL Gran % 63.8 (36.0-66.0) % Immature Gran % (Auto) 0.5 H (0.00-0.4) % Nucleat RBC Rel Count 0.0 (0.00-0.1) % Eos # (Auto) 0.08 (0-0.5) x10^3/uL Immature Gran # (Auto) 0.10 H (0.00-0.03) x10^3u/L Absolute Lymphs (auto) 4.95 H (1.0-4.6) x10^3/uL Absolute Monos (auto) 1.65 H (0.0-1.3) x10^3/uL Absolute Nucleated RBC 0.00 (0.00-0.01) x10^3u/L Lymphocytes % 26.2 (24.0-44.0) % Monocytes % 8.7 (0.0-12.0) % Eosinophils % 0.4 (0.00-5.0) % Basophils % 0.4 (0.0-0.4) % Absolute Granulocytes 12.05 H (1.4-6.9) x10^3/uL Basophils # 0.07 (0-0.4) x10^3/uL Sodium 135 (135-145) mmol/L Potassium 3.4 L (3.5-5.1) mmol/L Chloride 99 (98-107) mmol/L Carbon Dioxide 20 L (22-30) mmol/L Anion Gap 19.0 H (5-15) MEQ/L BUN 19 (9-20) mg/dL Creatinine 1.01 (0.66-1.25) mg/dL Estimated GFR 95.2 ML/MIN Glucose 192 H (74-106) mg/dL Calcium 10.3 H (8.4-10.2) mg/dL Magnesium 1.6 (1.6-2.3) mg/dL Total Bilirubin 0.60 (0.2-1.3) mg/dL AST 92 H (17-59) U/L ALT 112 H (0-50) U/L Alkaline Phosphatase 99 (38-126) U/L Troponin I < 0.012 (0.000-0.034) ng/mL Serum Total Protein 8.1 (6.3-8.2) g/dL Albumin 4.6 (3.5-5.0) g/dL Amylase 1548 H (30-110) U/L Lipase 11617 H (23-300) U/L Urine Color (Yellow) Urine Appearance (Clear) Urine pH (4.6-8.0) Ur Specific [place] (1.005-1.030) Urine Protein (Negative) Urine Glucose (UA) (Negative) mg/dL Urine Ketones (Negative) Urine Blood (Negative) Urine Nitrite (Negative) Urine Bilirubin (Negative) Urine Urobilinogen (0.2) mg/dL Ur Leukocyte Esterase (Negative) U Hyaline Cast (Auto) (0-2) /LPF Urine Microscopic RBC (0-5) /HPF Urine Microscopic WBC (0-5) /HPF Ur Epithelial Cells (None Seen) /HPF Urine Bacteria (None Seen) /HPF Urine Culture Reflexed (NO) Slides for Path Review YES 12/25/23 12/25/23 12/26/23 Range/Units 20:47 23:15 03:20 WBC (4.0-10.5) x10^3/uL RBC (4.1-5.6) x10^6/uL Hgb (12.5-18.0) g/dL Hct (42-50) % MCV (78-100) fL MCH (26-32) pg MCHC (32-36) g/dL RDW (11.5-14.0) % Plt Count (150-450) x10^3/uL MPV (7.5-11.0) fL Gran % (36.0-66.0) % Immature Gran % (Auto) (0.00-0.4) % Nucleat RBC Rel Count (0.00-0.1) % Eos # (Auto) (0-0.5) x10^3/uL Immature Gran # (Auto) (0.00-0.03) x10^3u/L Absolute Lymphs (auto) (1.0-4.6) x10^3/uL Absolute Monos (auto) (0.0-1.3) x10^3/uL Absolute Nucleated RBC (0.00-0.01) x10^3u/L Lymphocytes % (24.0-44.0) % Monocytes % (0.0-12.0) % Eosinophils % (0.00-5.0) % Basophils % (0.0-0.4) % Absolute Granulocytes (1.4-6.9) x10^3/uL Basophils # (0-0.4) x10^3/uL Sodium (135-145) mmol/L Potassium (3.5-5.1) mmol/L Chloride (98-107) mmol/L Carbon Dioxide (22-30) mmol/L Anion Gap (5-15) MEQ/L BUN (9-20) mg/dL Creatinine (0.66-1.25) mg/dL Estimated GFR ML/MIN Glucose (74-106) mg/dL Calcium (8.4-10.2) mg/dL Magnesium (1.6-2.3) mg/dL Total Bilirubin (0.2-1.3) mg/dL AST (17-59) U/L ALT (0-50) U/L Alkaline Phosphatase (38-126) U/L Troponin I < 0.012 < 0.012 (0.000-0.034) ng/mL Serum Total Protein (6.3-8.2) g/dL Albumin (3.5-5.0) g/dL Amylase (30-110) U/L Lipase (23-300) U/L Urine Color Yellow (Yellow) Urine Appearance Clear (Clear) Urine pH 5.5 (4.6-8.0) Ur Specific [place] 1.015 (1.005-1.030) Urine Protein Negative (Negative) Urine Glucose (UA) Negative (Negative) mg/dL Urine Ketones Trace A (Negative) Urine Blood Negative (Negative) Urine Nitrite Negative (Negative) Urine Bilirubin Negative (Negative) Urine Urobilinogen 0.2 (0.2) mg/dL Ur Leukocyte Esterase Trace A (Negative) U Hyaline Cast (Auto) NONE SEEN (0-2) /LPF Urine Microscopic RBC 0-2 (0-5) /HPF Urine Microscopic WBC 0-2 (0-5) /HPF Ur Epithelial Cells None Seen (None Seen) /HPF Urine Bacteria None Seen (None Seen) /HPF Urine Culture Reflexed NO (NO) Slides for Path Review 12/26/23 12/26/23 Range/Units 03:20 03:20 WBC 16.2 H (4.0-10.5) x10^3/uL RBC 5.14 (4.1-5.6) x10^6/uL Hgb 16.3 (12.5-18.0) g/dL Hct 48.0 (42-50) % MCV 93.4 (78-100) fL MCH 31.7 (26-32) pg MCHC 34.0 (32-36) g/dL RDW 12.8 (11.5-14.0) % Plt Count 287 (150-450) x10^3/uL MPV 8.7 (7.5-11.0) fL Gran % 86.8 H (36.0-66.0) % Immature Gran % (Auto) 0.4 (0.00-0.4) % Nucleat RBC Rel Count 0.0 (0.00-0.1) % Eos # (Auto) 0 (0-0.5) x10^3/uL Immature Gran # (Auto) 0.07 H (0.00-0.03) x10^3u/L Absolute Lymphs (auto) 0.97 L (1.0-4.6) x10^3/uL Absolute Monos (auto) 1.07 (0.0-1.3) x10^3/uL Absolute Nucleated RBC 0.00 (0.00-0.01) x10^3u/L Lymphocytes % 6.0 L (24.0-44.0) % Monocytes % 6.6 (0.0-12.0) % Eosinophils % 0.0 (0.00-5.0) % Basophils % 0.2 (0.0-0.4) % Absolute Granulocytes 14.02 H (1.4-6.9) x10^3/uL Basophils # 0.04 (0-0.4) x10^3/uL Sodium 140 (135-145) mmol/L Potassium 4.2 D (3.5-5.1) mmol/L Chloride 102 (98-107) mmol/L Carbon Dioxide 28 (22-30) mmol/L Anion Gap 14.5 (5-15) MEQ/L BUN 21 H (9-20) mg/dL Creatinine 0.95 (0.66-1.25) mg/dL Estimated GFR 102.5 ML/MIN Glucose 163 H (74-106) mg/dL Calcium 9.7 (8.4-10.2) mg/dL Magnesium (1.6-2.3) mg/dL Total Bilirubin 0.80 (0.2-1.3) mg/dL AST 74 H (17-59) U/L ALT 114 H (0-50) U/L Alkaline Phosphatase 79 (38-126) U/L Troponin I (0.000-0.034) ng/mL Serum Total Protein 7.7 (6.3-8.2) g/dL Albumin 4.4 (3.5-5.0) g/dL Amylase 835 H (30-110) U/L Lipase 5427 H (23-300) U/L Urine Color (Yellow) Urine Appearance (Clear) Urine pH (4.6-8.0) Ur Specific [place] (1.005-1.030) Urine Protein (Negative) Urine Glucose (UA) (Negative) mg/dL Urine Ketones (Negative) Urine Blood (Negative) Urine Nitrite (Negative) Urine Bilirubin (Negative) Urine Urobilinogen (0.2) mg/dL Ur Leukocyte Esterase (Negative) U Hyaline Cast (Auto) (0-2) /LPF Urine Microscopic RBC (0-5) /HPF Urine Microscopic WBC (0-5) /HPF Ur Epithelial Cells (None Seen) /HPF Urine Bacteria (None Seen) /HPF Urine Culture Reflexed (NO) Slides for Path Review Radiology Exams: Radiology Procedures Category Date Time Status ABDOMEN AND PELVIS W/0 CONTRAS [CT] Stat Exams 12/25/23 19:13 Completed Assessment/Plan (1) Acute pancreatitis Current Visit: No Status: Acute Assessment & Plan: - 2:2 ETOH use- social, no need for alcohol withdrawal protocol at this time. - 07/06 abd pain today - Narcotic pain control- Dilaudid increased to 2mg Q4hr - IVF - NPO - TELE - Protonix - PRN Zofran - CT abd/pelvis IMPRESSION: 1. Redemonstration of fat stranding around the head, neck, and uncinate process of pancreas with minimal peripancreatic fluid in this region, representing acute pancreatitis. 2. Nearly similar changes in the previous CT study could represent residual changes or new events of acute pancreatitis at present. 3. Stable hepatomegaly with fatty changes and few hypodense lesions, likely representing hepatic cysts/ hemangioma. - Will need to f/u OP with GI for repeat episodes. Code(s): K85.90 - ACUTE PANCREATITIS WITHOUT NECROSIS OR INFECTION, UNSP (2) Leukocytosis Current Visit: Yes Status: Acute Assessment & Plan: - 2:2 pancreatitis - antibiotics not indicated Code(s): D72.829 - ELEVATED WHITE BLOOD CELL COUNT, UNSPECIFIED (3) Overweight (BMI 25.0-29.9) Current Visit: No Status: Acute Assessment & Plan: - advised diet and exercise control Code(s): E66.3 - OVERWEIGHT (4) GERD (gastroesophageal reflux disease) Current Visit: Yes Status: Chronic Assessment & Plan: - protonix IV VTE: SCD's PPI: protonix Next of Kin: spouse, Rhonda Rubio [phone] D/c plan- 1-2 days Code status: Full Code(s): K21.9 - GASTRO-ESOPHAGEAL REFLUX DISEASE WITHOUT ESOPHAGITIS
[2023-12-26] MEDS: Zofran 4 MG/2 ML VIAL IV PRN (08:23)
[2023-12-26] MEDS: PROTONIX 40 MG IV IV SCH (09:37)
[2023-12-26] MEDS: APRESOLINE 20 MG/ML INJ IV PRN (10:21)
[2023-12-27] MEDS: MAALOX ES 30 ML UNIT DOSE PO PRN (01:57)
--- NOTE | 2023-12-27 05:09 | PCM.NOTE ---
Date and Time: 12/27/23 0508 Subjective Assessment: 43 year old male with pmhx of OA, GERD, and pancreatitis r/t social ETOH use (most recently a few days prior to presentation patient confirms he drank a few beers) admitted with complaints of abdominal pain, nausea, and vomiting on 12/25/23. CT imaging consistent with acute pancreatitis. Lab finding also co nsistent with acute pancreatitis with lipase elevated greater than three times the upper limits of normal (on admission 46517). Per pt report, recent MRI imaging at showing no abnormalities. IP treatment with supportive measures including aggressive hydration, pain control, and anti-emetics. Current lab findings with noted improvement. 12/27/23: Met with patient bedside. Endorses improvement overall with abdominal pain now at 5/10 on numerical pain scale. Nausea and vomiting have resolved. Patient states he is not ready to advance past a CLD today. He also endorses urinary hesitancy and pressure, bladder scan with minimal residual. Will order UA, on admission UA did have trace leuks with no culture performed. Denies fever,cough, sob, cp, SUMMERS, dizziness, N/V/D. - Review of Systems Constitutional: No Symptoms Eyes: No Symptoms Ears, Nose, & Throat: No Symptoms Respiratory: No Symptoms Cardiac: No Symptoms Abdominal/Gastrointestinal: Abdominal Pain Genitourinary Symptoms: Hesitancy, Other (pressure) Musculoskeletal: No Symptoms Skin: No Symptoms Neurological: No Symptoms Psychological: No Symptoms Endocrine: No Symptoms Hematologic/Lymphatic: No Symptoms Immunological/Allergic: No Symptoms Objective Exam General Appearance: no apparent distress Neurologic Exam: alert, oriented x 3, cooperative Skin Exam: normal color Eye Exam: PERRL Ears, Nose, Throat Exam: normal ENT inspection Neck Exam: normal inspection Respiratory Exam: normal breath sounds, lungs clear Cardiovascular Exam: regular rate/rhythm, normal heart sounds Gastrointestinal/Abdomen Exam: soft, normal bowel sounds, tenderness Extremity Exam: normal inspection Back Exam: normal inspection Male Genitalia Exam: deferred Rectal Exam: deferred Objective Data Vital Signs: Vital Signs - 24 hr Temp Pulse Resp BP Pulse Ox 12/27/23 04:00 98.7 F 99 H 21 143/81 94 L 12/27/23 00:00 97.5 F 109 H 20 177/101 97 12/26/23 20:00 98.4 F 92 H 20 164/101 98 12/26/23 15:00 97.8 F 105 H 18 146/98 96 12/26/23 11:30 98.1 F 101 H 17 139/88 99 12/26/23 09:45 86 158/96 12/26/23 07:01 98.5 F 84 18 169/105 96 Pain Assessment - Last Documented Pain Intensity 2 Pain Scale Used 0-10 Pain Scale Intake and Output: Intake & Output 12/24/23 12/25/23 12/26/23 12/27/23 11:59 11:59 11:59 11:59 Intake Total 752 2746 Balance 752 2746 Weight 99.8 kg Radiology Exams: Radiology Procedures Category Date Time Status ABDOMEN AND PELVIS W/0 CONTRAS [CT] Stat Exams 12/25/23 19:13 Completed Assessment/Plan (1) Acute pancreatitis Current Visit: No Status: Acute Assessment & Plan: - 2:2 ETOH use- social, no need for alcohol withdrawal protocol at this time. - 07/06 abd pain today - Narcotic pain control- Dilaudid increased to 2mg Q4hr - IVF - NPO - TELE - Protonix - PRN Zofran - CT abd/pelvis IMPRESSION: 1. Redemonstration of fat stranding around the head, neck, and uncinate process of pancreas with minimal peripancreatic fluid in this region, representing acute pancreatitis. 2. Nearly similar changes in the previous CT study could represent residual changes or new events of acute pancreatitis at present. 3. Stable hepatomegaly with fatty changes and few hypodense lesions, likely representing hepatic cysts/ hemangioma. - Will need to f/u OP with GI for repeat episodes. 12/26: -Advised cessation of even social drinking -Pain improving, diluadid decreased to 0.5mg, will add oral pain control when able to tolerate a diet -Supportive therapies -Will try CLD today Code(s): K85.90 - ACUTE PANCREATITIS WITHOUT NECROSIS OR INFECTION, UNSP (2) Leukocytosis Current Visit: Yes Status: Acute Assessment & Plan: - 2:2 pancreatitis - antibiotics not indicated 4: -Will repeat UA Code(s): D72.829 - ELEVATED WHITE BLOOD CELL COUNT, UNSPECIFIED (3) Overweight (BMI 25.0-29.9) Current Visit: No Status: Acute Assessment & Plan: - advised diet and exercise control Code(s): E66.3 - OVERWEIGHT (4) GERD (gastroesophageal reflux disease) Current Visit: Yes Status: Chronic Assessment & Plan: - protonix IV VTE: SCD's PPI: protonix Next of Kin: spouse, Rhonda Rubio [phone] D/c plan- 1-2 days Code status: Full Code(s): K21.9 - GASTRO-ESOPHAGEAL REFLUX DISEASE WITHOUT ESOPHAGITIS Code(s): K85.90 - ACUTE PANCREATITIS WITHOUT NECROSIS OR INFECTION, UNSP (2) Leukocytosis Current Visit: Yes Status: Acute Code(s): D72.829 - ELEVATED WHITE BLOOD CELL COUNT, UNSPECIFIED (3) GERD with esophagitis Current Visit: No Status: Acute Code(s): K21.00 - GASTRO-ESOPHAGEAL REFLUX DIS WITH ESOPHAGITIS, WITHOUT BLEED (4) Overweight (BMI 25.0-29.9) Current Visit: No Status: Acute Code(s): E66.3 - OVERWEIGHT
[2023-12-27 05:20] LABS: Hematocrit 43.5 % (42-50); Hemoglobin 14.8 g/dL (12.5-18.0); Mean Cell Volume 94.2 fL (78-100); Mean Platelet Volume 8.8 fL (7.5-11.0); Platelet Count 252 x10^3/uL (150-450); Red Blood Count 4.62 x10^6/uL (4.1-5.6)
[2023-12-27 05:29] LABS: ALBUMIN 3.9 g/dL (3.5-5.0); ANION GAP 10.7 MEQ/L (5-15); BILIRUBIN,TOTAL 1.2 mg/dL (0.2-1.3); Calcium 8.8 mg/dL (8.4-10.2); Creatinine 1 0.72 mg/dL (0.66-1.25); Potassium 3.4 mmol/L (3.5-5.1); Total Protein 7.1 g/dL (6.3-8.2)
[2023-12-27] MEDS: Klor Con PO SCH (10:41)
[2023-12-27 11:16] LABS: Appearance Clear (Clear); Bacteria None Seen /HPF (None Seen); Bilirubin Negative (Negative); Blood Small (Negative); Epithelial Cells None Seen /HPF (None Seen); Glucose, Urine 250 mg/dL (Negative); Hyaline Casts NONE SEEN /LPF (0-2); Ketones Trace (Negative); Leukocyte Esterase Negative (Negative); Nitrite Negative (Negative); Ph 6.5 (4.6-8.0); Protein,Urine Dip 100 (Negative); Specific Gravity 1.025 (1.005-1.030); WBC 0-2 /HPF (0-5)
[2023-12-27 11:36] LABS: ADD URINE CULTURE? NO (NO)
[2023-12-27] MEDS: Hydromorphone 1 mg/ml Injection IV PRN (12:07)
[2023-12-28 04:26] VITALS: O2SAT 94
[2023-12-28 04:44] LABS: Hematocrit 39.5 % (42-50); Mean Cell Volume 96.3 fL (78-100); Mean Corpuscular Hemoglobin 31.7 pg (26-32); Mean Corpuscular Hgb Concent. 32.9 g/dL (32-36); Mean Platelet Volume 8.8 fL (7.5-11.0); Platelet Count 223 x10^3/uL (150-450); Red Cell Distribution Width 12.8 % (11.5-14.0); White Blood Count 15.3 x10^3/uL (4.0-10.5)
[2023-12-28 05:13] LABS: ALBUMIN 3.7 g/dL (3.5-5.0); ANION GAP 9.8 MEQ/L (5-15); BILIRUBIN,TOTAL 1.1 mg/dL (0.2-1.3); Calcium 8.7 mg/dL (8.4-10.2); Creatinine 1 0.63 mg/dL (0.66-1.25); EST GLOMERULAR FILTRATION RATE 121.8 ML/MIN; Potassium 3.3 mmol/L (3.5-5.1); Total Protein 7.2 g/dL (6.3-8.2)
[2023-12-28 06:41] VITALS: BP 132/82; PULSE 73; RESP 19; TEMP 96.2
[2023-12-28] MEDS: Klor Con PO SCH (08:33)
[2023-12-28] MEDS: Zestril 20 MG PO SCH (09:37)
[2023-12-28] MEDS: hydroDIURIL 25 MG PO SCH (09:37)
[2023-12-28] MEDS ORDERED: NON-FORMULARY ITEM (Lisinopril/Hydrochlorothiazide [Lisinopril-Hctz 20-12.5 Mg Tab] 1 EACH PO SCH (10:00)
--- NOTE | 2023-12-28 11:31 | PCM.DS ---
Discharge Summary Date of Admission: 12/25/23 22:19 Date of Discharge: 12/28/23 Admitting Physician: SHAHEED BROWN MD Primary Care Provider: DORA LEE Allergies Allergies No Known Drug Allergies Allergy (Verified 12/25/23 19:06) Hospital Summary - Hospital Course Hospital Course: Subjective Assessment: 43 year old male with pmhx of OA, GERD, and pancreatitis r/t social ETOH use (most recently a few days prior to presentation patient confirms he drank a few beers) admitted with complaints of abdominal pain, nausea, and vomiting on 12/25/23. CT imaging consistent with acute pancreatitis. Lab finding also consistent with acute pancreatitis with lipase elevated greater than three times the upper limits of normal (on admission 60060). Per pt report, recent MRI imaging at showing no abnormalities. IP treatment with supportive measures including aggressive hydration, pain control, and anti-emetics. Current lab findings with noted improvement. Patient tolerating regular diet with no nausea/vomiting. Abdominal pain is at a tolerable rate. Advised follow up with his GI/PCP and cessation of even social drinking as this seems to exacerbate his pancreatitis. Patient agreeable to plan and ready for discharge. Discharge Note New Diagnosis: Acute pancreatitis New Medications: norco Follow Up: PCP/GI Latest Assessment & Plan (1) Acute pancreatitis Current Visit: No Status: Acute Assessment & Plan: - 2:2 ETOH use- social, no need for alcohol withdrawal protocol at this time. - 07/06 abd pain today - Narcotic pain control- Dilaudid increased to 2mg Q4hr - IVF - NPO - TELE - Protonix - PRN Zofran - CT abd/pelvis IMPRESSION: 1. Redemonstration of fat stranding around the head, neck, and uncinate process of pancreas with minimal peripancreatic fluid in this region, representing acute pancreatitis. 2. Nearly similar changes in the previous CT study could represent residual changes or new events of acute pancreatitis at present. 3. Stable hepatomegaly with fatty changes and few hypodense lesions, likely representing hepatic cysts/ hemangioma. - Will need to f/u OP with GI for repeat episodes. 12/26: -Advised cessation of even social drinking -Pain improving, diluadid decreased to 0.5mg, will add oral pain control when able to tolerate a diet -Supportive therapies -Will try CLD today Code(s): K85.90 - ACUTE PANCREATITIS WITHOUT NECROSIS OR INFECTION, UNSP (2) Leukocytosis Current Visit: Yes Status: Acute Assessment & Plan: - 2:2 pancreatitis - antibiotics not indicated 12/26: -Will repeat UA Code(s): D72.829 - ELEVATED WHITE BLOOD CELL COUNT, UNSPECIFIED (3) Overweight (BMI 25.0-29.9) Current Visit: No Status: Acute Assessment & Plan: - advised diet and exercise control Code(s): E66.3 - OVERWEIGHT (4) GERD (gastroesophageal reflux disease) Current Visit: Yes Status: Chronic Assessment & Plan: - protonix IV I spent 35 minutes [id number] with the patient on the day of discharge performing discharge exam, discussing hospital stay and discharge instructions with patient and caregivers, preparation of discharge records, prescriptions & referral forms and addressing any questions/concerns the patient had as documented above. - Vitals & Intake/Output Vital Signs: Vital Signs Temperature 96.2 F 12/28/23 06:40 Pulse Rate 73 12/28/23 06:40 Respiratory Rate 19 12/28/23 06:40 Blood Pressure 132/82 12/28/23 06:40 O2 Sat by Pulse Oximetry 94 L 12/28/23 06:40 Intake & Output: Intake & Output 12/25/23 12/26/23 12/27/23 12/28/23 11:59 11:59 11:59 11:59 Intake Total 752 2986 2500 Balance 752 2986 2500 Weight 99.8 kg 99.8 kg - Lab Result Diagrams: 12/28/23 04:41 12/28/23 10:06 Lab Results-Last 24 Hrs: Lab Results-Last 24 Hours 12/27/23 12/28/23 12/28/23 Range/Units 11:07 04:41 04:41 WBC 15.3 H (4.0-10.5) x10^3/uL RBC 4.10 (4.1-5.6) x10^6/uL Hgb 13.0 (12.5-18.0) g/dL Hct 39.5 L (42-50) % MCV 96.3 (78-100) fL MCH 31.7 (26-32) pg MCHC 32.9 (32-36) g/dL RDW 12.8 (11.5-14.0) % Plt Count 223 (150-450) x10^3/uL MPV 8.8 (7.5-11.0) fL Sodium 133 L (135-145) mmol/L Potassium 3.3 L (3.5-5.1) mmol/L Chloride 101 (98-107) mmol/L Carbon Dioxide 25 (22-30) mmol/L Anion Gap 9.8 (5-15) MEQ/L BUN 11 (9-20) mg/dL Creatinine 0.63 L (0.66-1.25) mg/dL Estimated GFR 121.8 ML/MIN Glucose 116 H (74-106) mg/dL Calcium 8.7 (8.4-10.2) mg/dL Total Bilirubin 1.10 (0.2-1.3) mg/dL AST 43 (17-59) U/L ALT 61 H (0-50) U/L Alkaline Phosphatase 60 (38-126) U/L Serum Total Protein 7.2 (6.3-8.2) g/dL Albumin 3.7 (3.5-5.0) g/dL Lipase 568 H (23-300) U/L Urine Color Yellow (Yellow) Urine Appearance Clear (Clear) Urine pH 6.5 (4.6-8.0) Ur Specific [place] 1.025 (1.005-1.030) Urine Protein 100 A (Negative) Urine Glucose (UA) 250 A (Negative) mg/dL Urine Ketones Trace A (Negative) Urine Blood Small A (Negative) Urine Nitrite Negative (Negative) Urine Bilirubin Negative (Negative) Urine Urobilinogen 1.0 A (0.2) mg/dL Ur Leukocyte Esterase Negative (Negative) U Hyaline Cast (Auto) NONE SEEN (0-2) /LPF Urine Microscopic RBC 6-10 A (0-5) /HPF Urine Microscopic WBC 0-2 (0-5) /HPF Ur Epithelial Cells None Seen (None Seen) /HPF Urine Bacteria None Seen (None Seen) /HPF Urine Culture Reflexed NO (NO) 12/28/23 Range/Units 10:06 WBC (4.0-10.5) x10^3/uL RBC (4.1-5.6) x10^6/uL Hgb (12.5-18.0) g/dL Hct (42-50) % MCV (78-100) fL MCH (26-32) pg MCHC (32-36) g/dL RDW (11.5-14.0) % Plt Count (150-450) x10^3/uL MPV (7.5-11.0) fL Sodium (135-145) mmol/L Potassium 3.1 L (3.5-5.1) mmol/L Chloride (98-107) mmol/L Carbon Dioxide (22-30) mmol/L Anion Gap (5-15) MEQ/L BUN (9-20) mg/dL Creatinine (0.66-1.25) mg/dL Estimated GFR ML/MIN Glucose (74-106) mg/dL Calcium (8.4-10.2) mg/dL Total Bilirubin (0.2-1.3) mg/dL AST (17-59) U/L ALT (0-50) U/L Alkaline Phosphatase (38-126) U/L Serum Total Protein (6.3-8.2) g/dL Albumin (3.5-5.0) g/dL Lipase (23-300) U/L Urine Color (Yellow) Urine Appearance (Clear) Urine pH (4.6-8.0) Ur Specific [place] (1.005-1.030) Urine Protein (Negative) Urine Glucose (UA) (Negative) mg/dL Urine Ketones (Negative) Urine Blood (Negative) Urine Nitrite (Negative) Urine Bilirubin (Negative) Urine Urobilinogen (0.2) mg/dL Ur Leukocyte Esterase (Negative) U Hyaline Cast (Auto) (0-2) /LPF Urine Microscopic RBC (0-5) /HPF Urine Microscopic WBC (0-5) /HPF Ur Epithelial Cells (None Seen) /HPF Urine Bacteria (None Seen) /HPF Urine Culture Reflexed (NO) Discharge Exam General Appearance: no apparent distress Neurologic Exam: alert, oriented x 3, cooperative Eye Exam: PERRL Ears, Nose, Throat Exam: normal ENT inspection Neck Exam: normal inspection Respiratory Exam: normal breath sounds, lungs clear Cardiovascular Exam: regular rate/rhythm, normal heart sounds Gastrointestinal/Abdomen Exam: soft, normal bowel sounds Male Genitalia Exam: deferred Rectal Exam: deferred Back Exam: normal inspection Extremity Exam: normal inspection Skin Exam: normal color Final Diagnosis/Problem List - Final Discharge Diagnosis/Problem (1) Acute pancreatitis Current Visit: No Status: Acute Code(s): K85.90 - ACUTE PANCREATITIS WITHOUT NECROSIS OR INFECTION, UNSP (2) Leukocytosis Current Visit: Yes Status: Acute Code(s): D72.829 - ELEVATED WHITE BLOOD CELL COUNT, UNSPECIFIED (3) GERD with esophagitis Current Visit: No Status: Chronic Code(s): K21.00 - GASTRO-ESOPHAGEAL REFLUX DIS WITH ESOPHAGITIS, WITHOUT BLEED (4) Overweight (BMI 25.0-29.9) Current Visit: No Status: Chronic Code(s): E66.3 - OVERWEIGHT - Discharge Disposition: Home, Self-Care Condition: Stable Prescriptions: New Hydrocodone/Acetaminophen [Hydrocodone-Acetamin 5-325 mg] 1 tab PO Q4HPRN PRN 3 Days #18 tablet MDD 6 PRN Reason: Pain Potassium Chloride 20 meq PO DAILY 5 Days #5 tablet Hydrocodone/Acetaminophen [Hydrocodone-Acetamin 5-325 mg] 1 tab PO Q4HPRN PRN 3 Days #18 tablet MDD 6 PRN Reason: Pain Potassium Chloride Tab* [Klor Con] 20 meq PO DAILY tablet Continue PANTOPRAZOLE 40 mg Tablet [Protonix 40MG Tablet] 40 mg PO QAM #30 tab Lisinopril/Hydrochlorothiazide [Lisinopril-Hctz 20-12.5 mg Tab] 2 each PO DAILY Instructions: Acute pancreatitis Follow up with: DORA LEE MD [Primary Care Provider] - 01/10/24 2:15 pm
[2023-12-29] MEDS ORDERED: Protonix 40MG Tablet PO SCH (10:00)
== END 2023-12-28 11:58 | disposition home or self-care (01) | DRG 440 ==
LOC: ED 19:02 → MED SURG 22:19 → OBSVTOIN 22:19
PROVIDERS: ADMIT Student in an Organized Health Care Education/Training Program; ATTEND Student in an Organized Health Care Education/Training Program
DX: K85.90 Acute pancreatitis without necrosis or infection, unspecified (principal); D72.829 Elevated white blood cell count, unspecified; E66.3 Overweight; K21.9 Gastro-esophageal reflux disease without esophagitis; I10 Essential (primary) hypertension; Z79.899 Other long term (current) drug therapy; Z20.828 Contact with and (suspected) exposure to other viral communicable diseases
CPT/HCPCS: 36000; 36415; 74176; 80053; 80061; 81001; 82150; 83690; 83721; 83735; 84132; 84484; 85025; 85027; 93005; 96374; 96375; 96376; 99285; J0360; J1170; J2270; J2405; Q3014; A9270-GY

== ENCOUNTER 2024-03-01 06:19 | Day surgery (SDC) | payer OTHER ==
[2024-03-01] MEDS ORDERED: Lactated Ringers 1,000 ML IV ONE (07:05)
[2024-03-01] MEDS: Lactated Ringers 1,000 ML IV SCH (07:28)
[2024-03-01 07:41] LABS: ANION GAP 12.6 MEQ/L (5-15); Calcium 9.9 mg/dL (8.4-10.2); Creatinine 1 0.83 mg/dL (0.66-1.25); EST GLOMERULAR FILTRATION RATE 112.1 ML/MIN; Potassium 3.4 mmol/L (3.5-5.1)
[2024-03-01] MEDS ORDERED: DIPRIVAN 200 MG/20 ML IV ONE ×2 (07:55→08:08)
[2024-03-01] MEDS ORDERED: Versed 2 MG/2 ML Injection ONE (07:55)
[2024-03-01] MEDS ORDERED: SUBLIMAZE 100 MCG/2 ML ONE (08:07)
[2024-03-01 08:54] VITALS: PULSE 60; RESP 16
[2024-03-01 09:07] VITALS: BP 120/75; TEMP 97.8; O2SAT 97
--- NOTE | 2024-03-01 12:02 | OP ---
SURGERY DATE/TIME: 03/01/2024 0801 PREOPERATIVE DIAGNOSES: 1) Screening colonoscopy. 2) Family history of colon cancer. POSTOPERATIVE DIAGNOSIS: Small sessile sigmoid polyp. PROCEDURE: Colonoscopy. SURGEON: Levi Agarwal M.D. ANESTHESIA: MAC by Ramón Pierce CRNA. QUANTITATIVE BLOOD LOSS: Minimal. SPECIMENS: Cold forceps polypectomy from sigmoid colon. DESCRIPTION OF PROCEDURE: After informed written consent was obtained, the patient was taken to the endoscopy suite. He was placed in left lateral decubitus position and anesthesia was titrated to desired level of consciousness. Digital rectal exam showed normal sphincter tone and no internal lesions. The scope was inserted into the rectum and sequentially the entire colonic mucosa was traversed. The level of cecum was reached and verified with direct visualization of the ileocecal valve. Upon withdrawal careful mucosal inspection revealed one very small sessile polyp in the proximal sigmoid colon. It was grasped with forceps and removed via cold forceps biopsy with minimal blood loss. It was a very small lesion. The remainder of the examination was within normal limits. Prior to withdrawal retroflexion showed no internal lesions. Prep was noted to be good. The scope was removed. The patient was transferred to the recovery room in good condition. He will follow up in a week for pathology results and further follow up recommendations at that time.
== END 2024-03-01 09:21 | disposition home or self-care (01) ==
LOC: SDC 06:19
PROVIDERS: ATTEND Family Medicine
DX: Z12.11 Encounter for screening for malignant neoplasm of colon (principal); Z80.0 Family history of malignant neoplasm of digestive organs; K63.5 Polyp of colon
CPT/HCPCS: 36415; 80048; J2250; J2704; J3010

== ENCOUNTER 2024-03-13 20:02 | Emergency (ER) | payer OTHER ==
--- NOTE | 2024-03-13 20:15 | ERPHSYRPT ---
- History of Present Illness Time Seen by Provider: 03/13/24 20:14 Historian: patient, family, EMS, old records Exam Limitations: no limitations Physician History: This is a 43-year-old white male patient of Dr. Agarwal and pain specialist Dr. Shah who presents to the emergency department by the paramedics with sudden onset of excruciating abdominal pain after having a meal of fajitas. He had a few episodes of vomiting. The pain feels similar to the episodes of acute pancreatitis he has had in the past. However, this is much more intense and more excruciating. The paramedics provided the patient 4 mg of Zofran which helped the nausea and vomiting. However, the 100 mcg of fentanyl did not touch his pain. Patient denies chest pain. He denies shortness of breath. Patient arrives to the emergency department writhing around in severe pain. Patient has a history of hypertension on a combination of lisinopril and hydrochlorothiazide and recurrent pancreatitis. Timing/Duration: today Quality: cramping, sharpness, stabbing Abdominal Pain Onset Location: LUQ, epigastric Pain Radiation: flank (Left) Severity of Pain-Max: moderate Modifying Factors: Improves With: vomiting Associated Symptoms: loss of appetite, nausea, neck pain, No chest pain, No headache, No shortness of breath Previous symptoms: same symptoms as today, no recent treatment Allergies/Adverse Reactions: No Known Drug Allergies Allergy (Verified 03/13/24 20:09) Home Medications: Lisinopril/Hydrochlorothiazide [Lisinopril-Hctz 20-12.5 mg Tab] 2 each PO DAILY 10/07/23 [History] Hx Tetanus, Diphtheria Vaccination/Date Given: Yes Hx Influenza Vaccination/Date Given: Yes Hx Pneumococcal Vaccination/Date Given: No Travel Risk - International Travel Have you traveled outside of the country in past 3 weeks: No - Emerging Infectious Disease Are you exhibiting symptoms associated with any current EIDs: No - Review of Systems Constitutional: No Symptoms Eyes: No Symptoms Ears, Nose, & Throat: No Symptoms Respiratory: No Symptoms Cardiac: No Symptoms Abdominal/Gastrointestinal: Abdominal Pain, Nausea, Vomiting, Appetite Changes Genitourinary Symptoms: No Symptoms Musculoskeletal: No Symptoms Skin: No Symptoms Neurological: No Symptoms Psychological: No Symptoms Endocrine: No Symptoms Hematologic/Lymphatic: No Symptoms Immunological/Allergic: No Symptoms All Other Systems: Reviewed and Negative - Past Medical History Pertinent Past Medical History: Yes Neurological History: No Pertinent History ENT History: No Pertinent History Cardiac History: Hypertension Respiratory History: No Pertinent History Endocrine Medical History: No Pertinent History Musculoskeletal History: Osteoarthritis GI Medical History: GERD, Pancreatitis History: No Pertinent History Psycho-Social History: No Pertinent History Male Reproductive Disorders: No Pertinent History Other Medical History: HX LEFT ROTATOR CUFF REPAIR 2020, OSTEOCHONDROMA REMOVAL RIGHT FEMUR PROXIMAL 2018 - Past Surgical History Past Surgical History: Yes Neuro Surgical History: No Pertinent History Cardiac: No Pertinent History Respiratory: No Pertinent History Gastrointestinal: No Pertinent History Genitourinary: No Pertinent History Musculoskeletal: Other Male Surgical History: No Pertinent History Other Surgical History: l4 l5 fusion. right hip. bicep and tendon in shoulder. back surgery - Social History Smoking Status: Never smoker Exposure to second hand smoke: No Drug Use: none Patient Lives Alone: No - Social Determinants of Health Will the patient participate in the screening: Yes Do you worry about a steady place to live?: No In the past 12 months,have you had to go without utilities?: No Transportation Issues: No Has anyone in your support network made you feel unsafe?: No Have you or anyone in your house had to go without enough: No - Nursing Vital Signs Nursing Vital Signs: Initial Vital Signs Temperature 97.6 F 03/13/24 20:05 Pulse Rate 85 03/13/24 20:05 Respiratory Rate 16 03/13/24 20:05 Blood Pressure 140/94 03/13/24 20:05 O2 Sat by Pulse Oximetry 100 03/13/24 20:05 Pain Scale Pain Intensity 10 - Physical Exam General Appearance: moderate distress, alert, anxiety Eye Exam: PERRL/EOMI, eyes nml inspection Ears, Nose, Throat Exam: normal ENT inspection, moist mucous membranes Neck Exam: normal inspection, non-tender, supple, full range of motion Respiratory Exam: normal breath sounds, lungs clear, airway intact, No chest tenderness, No respiratory distress Cardiovascular Exam: regular rate/rhythm, normal heart sounds, normal peripheral pulses Gastrointestinal/Abdomen Exam: soft, normal bowel sounds, tenderness, guarding, rebound Rectal Exam: not done Back Exam: normal inspection, normal range of motion, No CVA tenderness, No vertebral tenderness Extremity Exam: normal inspection, normal range of motion, pelvis stable Neurologic Exam: alert, oriented x 3, cooperative, solutions sales executive II-XII nml as tested, sensation nml Skin Exam: normal color, warm, dry Lymphatic Exam: No adenopathy SpO2 Interpretation: normal O2 Delivery: Room Air - Course Nursing assessment & vital signs reviewed: Yes EKG Interpreted by Me: RATE, Sinus Rhythm (85), NORMAL AXIS, NORMAL INTERVALS, NORMAL QRS, NORMAL ST-T, Other (No acute ischemia on today's twelve-lead EKG. The QTc was checked before droperidol given. QTc is 468) Ordered Tests: Active Orders 24 hr Category Date Time Status IV Insertion STAT Care 03/13/24 20:16 Active IV Insertion-2nd Peripheral STAT Care 03/13/24 22:19 Active Telemetry q4h Care 03/13/24 22:11 Active ABDOMEN AND PELVIS W/0 CONTRAS [CT] Stat Exams 03/13/24 20:17 Taken AMYLASE Stat Lab 03/13/24 20:15 Completed BLOOD CULTURE Stat Lab 03/13/24 22:15 Received BLOOD CULTURE Stat Lab 03/13/24 22:25 Received CBC W DIFF Stat Lab 03/13/24 20:15 Completed CMP Stat Lab 03/13/24 20:15 Completed LIPASE Stat Lab 03/13/24 20:15 Completed Lactic Acid Stat Lab 03/13/24 20:16 Completed Lactic Acid Stat Lab 03/13/24 22:35 Completed UA W/RFX UR CULTURE Stat Lab 03/13/24 20:16 Ordered EKG STAT RT 03/13/24 22:10 Active Medication Summary Generic Name Dose Route Start Last Admin Trade Name Freq PRN Reason Stop Dose Admin Sodium Chloride 1,000 mls @ 125 mls/hr 03/13/24 22:45 03/13/24 22:40 Sodium Chloride 0.9% 1000 Ml IV 04/12/24 22:44 125 mls/hr .Q8H LORETTA Administration Discontinued Medications Generic Name Dose Route Start Last Admin Trade Name Freq PRN Reason Stop Dose Admin Droperidol 0.625 mg 03/13/24 22:23 03/13/24 22:39 Droperidol 5 Mg/2 Ml Vial IV 03/13/24 22:24 0.625 mg STAT ONE Administration Droperidol Confirm 03/13/24 22:32 Droperidol 5 Mg/2 Ml Vial Administered 03/13/24 22:33 Dose 5 mg .ROUTE .STK-MED ONE Hydromorphone HCl 1 mg 03/13/24 20:16 03/13/24 20:28 Hydromorphone 1 Mg/1ml Inj IV 03/13/24 20:17 1 mg STAT ONE Administration Hydromorphone HCl Confirm 03/13/24 20:21 Hydromorphone 1 Mg/1ml Inj Administered 03/13/24 20:22 Dose 1 mg .ROUTE .STK-MED ONE Hydromorphone HCl 1 mg 03/13/24 20:49 03/13/24 20:53 Hydromorphone 1 Mg/1ml Inj IV 03/13/24 20:50 1 mg STAT ONE Administration Hydromorphone HCl Confirm 03/13/24 20:51 Hydromorphone 1 Mg/1ml Inj Administered 03/13/24 20:52 Dose 1 mg .ROUTE .STK-MED ONE Hydromorphone HCl 1 mg 03/13/24 21:10 03/13/24 21:14 Hydromorphone 1 Mg/1ml Inj IV 03/13/24 21:11 1 mg STAT ONE Administration Hydromorphone HCl Confirm 03/13/24 21:12 Hydromorphone 1 Mg/1ml Inj Administered 03/13/24 21:13 Dose 1 mg .ROUTE .STK-MED ONE Hydromorphone HCl 1 mg 03/13/24 23:06 Hydromorphone 1 Mg/1ml Inj IV 03/13/24 23:07 STAT ONE Sodium Chloride 1,000 mls @ 999 mls/hr 03/13/24 20:16 03/13/24 22:22 Sodium Chloride 0.9% 1000 Ml IV 03/13/24 21:16 Infused .Q1H1M STA Infusion Sodium Chloride Confirm 03/13/24 20:21 Sodium Chloride 0.9% 1000 Ml Administered 03/13/24 20:22 Dose 1,000 mls @ ud .ROUTE .STK-MED ONE Lactated Ringer's 1,000 mls @ 999 mls/hr 03/13/24 22:06 03/13/24 22:41 Lactated Ringers IV 03/13/24 23:06 999 mls/hr .Q1H1M ONE Administration Potassium Chloride 20 meq in 100 mls @ 50 mls/hr 03/13/24 22:10 03/13/24 22:40 Potassium Chloride 20 Meq In Water 100ml IV 03/14/24 00:09 50 mls/hr STAT ONE Administration Meropenem 1 gm/ Sodium 100 mls @ 200 mls/hr 03/13/24 22:22 03/13/24 22:40 Chloride IV 03/13/24 22:51 200 mls/hr STAT ONE Administration Sodium Chloride Confirm 03/13/24 22:33 Sodium Chloride 100ml Mini-Bag Plus Administered 03/13/24 22:34 Dose 100 mls @ ud IV .STK-MED ONE Lactated Ringer's Confirm 03/13/24 22:33 Lactated Ringers Administered 03/13/24 22:34 Dose 1,000 mls @ ud IV .STK-MED ONE Potassium Chloride Confirm 03/13/24 22:34 Potassium Chloride 20 Meq In Water 100ml Administered 03/13/24 22:35 Dose 100 mls @ ud IV .STK-MED ONE Meropenem Confirm 03/13/24 22:32 Meropenem 1 Gm Vial Administered 03/13/24 22:33 Dose 1 gm IV .STK-MED ONE Pantoprazole Sodium 40 mg 03/13/24 20:16 03/13/24 20:27 Pantoprazole 40 Mg Vial IV 03/13/24 20:17 40 mg STAT ONE Administration Pantoprazole Sodium Confirm 03/13/24 20:21 Pantoprazole 40 Mg Vial Administered 03/13/24 20:22 Dose 40 mg IV .STK-MED ONE Prochlorperazine Edisylate 10 mg 03/13/24 21:11 03/13/24 21:14 Prochlorperazine Edisylate 10 Mg/2 Ml Vial IV 03/13/24 21:12 10 mg STAT ONE Administration Prochlorperazine Edisylate Confirm 03/13/24 21:13 Prochlorperazine Edisylate 10 Mg/2 Ml Vial Administered 03/13/24 21:14 Dose 10 mg .ROUTE .STK-MED ONE Lab/Rad Data: Laboratory Result Diagrams 03/13/24 20:15 03/13/24 20:15 Laboratory Results 03/13/24 03/13/24 03/13/24 Range/Units 22:35 20:16 20:15 WBC (4.23-9.07) x10^3/uL RBC (4.63-6.08) x10^6/uL Hgb (13.7-17.5) g/dL Hct (40.1-51.0) % MCV (79.0-92.2) fL MCH (25.7-32.2) pg MCHC (32.3-36.5) g/dL RDW (11.6-14.4) % Plt Count (163-337) x10^3/uL MPV (9.4-12.4) fL Gran % (34.0-67.9) % Immature Gran % (Auto) (0.001-0.429) % Nucleat RBC Rel Count (0.00-0.2) % Eos # (Auto) (0.04-0.54) x10^3/uL Immature Gran # (Auto) (0.001-0.031) x10^3u/L Absolute Lymphs (auto) (1.32-3.57) x10^3/uL Absolute Monos (auto) (0.30-0.82) x10^3/uL Absolute Nucleated RBC (0.00-0.012) x10^3u/L Lymphocytes % (21.8-53.1) % Monocytes % (5.3-12.2) % Eosinophils % (0.8-7.0) % Basophils % (0.2-1.2) % Absolute Granulocytes (1.78-5.38) x10^3/uL Basophils # (0.01-0.08) x10^3/uL Sodium 137 (135-145) mmol/L Potassium 3.0 L* (3.5-5.1) mmol/L Chloride 103 (98-107) mmol/L Carbon Dioxide 18 L (22-30) mmol/L Anion Gap 19.0 H (5-15) MEQ/L BUN 16 (9-20) mg/dL Creatinine 1.13 (0.66-1.25) mg/dL Estimated GFR 83.2 ML/MIN Glucose 181 H (74-106) mg/dL Lactic Acid 3.8 H 6.1 H (0.4-2.0) Calcium 10.0 (8.4-10.2) mg/dL Total Bilirubin 0.80 (0.2-1.3) mg/dL AST 101 H (17-59) U/L ALT 112 H (0-50) U/L Alkaline Phosphatase 81 (38-126) U/L Serum Total Protein 7.6 (6.3-8.2) g/dL Albumin 4.5 (3.5-5.0) g/dL Amylase 3804 H (30-110) U/L Lipase 59802 H (23-300) U/L Slides for Path Review 03/13/24 Range/Units 20:15 WBC 27.1 H* (4.23-9.07) x10^3/uL RBC 4.74 (4.63-6.08) x10^6/uL Hgb 14.8 (13.7-17.5) g/dL Hct 42.1 (40.1-51.0) % MCV 88.8 (79.0-92.2) fL MCH 31.2 (25.7-32.2) pg MCHC 35.2 (32.3-36.5) g/dL RDW 12.8 (11.6-14.4) % Plt Count 323 (163-337) x10^3/uL MPV 7.9 L (9.4-12.4) fL Gran % 67.5 (34.0-67.9) % Immature Gran % (Auto) 0.9 H (0.001-0.429) % Nucleat RBC Rel Count 0.0 (0.00-0.2) % Eos # (Auto) 0.31 (0.04-0.54) x10^3/uL Immature Gran # (Auto) 0.25 H (0.001-0.031) x10^3u/L Absolute Lymphs (auto) 6.39 H (1.32-3.57) x10^3/uL Absolute Monos (auto) 1.79 H (0.30-0.82) x10^3/uL Absolute Nucleated RBC 0.00 (0.00-0.012) x10^3u/L Lymphocytes % 23.6 (21.8-53.1) % Monocytes % 6.6 (5.3-12.2) % Eosinophils % 1.1 (0.8-7.0) % Basophils % 0.3 (0.2-1.2) % Absolute Granulocytes 18.23 H (1.78-5.38) x10^3/uL Basophils # 0.08 (0.01-0.08) x10^3/uL Sodium (135-145) mmol/L Potassium (3.5-5.1) mmol/L Chloride (98-107) mmol/L Carbon Dioxide (22-30) mmol/L Anion Gap (5-15) MEQ/L BUN (9-20) mg/dL Creatinine (0.66-1.25) mg/dL Estimated GFR ML/MIN Glucose (74-106) mg/dL Lactic Acid (0.4-2.0) Calcium (8.4-10.2) mg/dL Total Bilirubin (0.2-1.3) mg/dL AST (17-59) U/L ALT (0-50) U/L Alkaline Phosphatase (38-126) U/L Serum Total Protein (6.3-8.2) g/dL Albumin (3.5-5.0) g/dL Amylase (30-110) U/L Lipase (23-300) U/L Slides for Path Review YES - Progress Progress: improved, pain not gone completely, re-examined Progress Note: 03/13/24 23:00 My medical decision making and the assignment of high complexity to this patien t's medical issue is based on review the patient's past medical history, review the patient's medication list, review of patient drug allergy list, history present illness and physical findings on examination. The workup in this patient includes placement of intravenous line, providing the patient with intravenous narcotics and antiemetics, providing the patient with crystalloid, CBC, CMP, amylase, lipase, lactic acid level, urinalysis, twelve-lead EKG and CT scan of abdomen pelvis with out contrast. Differential diagnosis includes but not limited to acute pancreatitis, other acute intra-abdominal intrapelvic abnormality such as colitis, perforated bowel I interpreted the patient's laboratory data results. The patient has a significant leukocytosis of over 27,000 with a left shift. He also has significantly elevated amylase and lipase levels. He has significant lactic acid level as well as an elevated anion gap and low CO2. Will provide the patient with meropenem antibiotics and continue provide the patient with intravenous narcotics as well as intravenous crystalloid. The patient also has a potassium that is 3.0 we will provide the patient with additional potassium supplementation. The patient, in my opinion, needs to be transferred to a higher level of care where they will have GI, general surgery and ICU available in the event this patient's condition suddenly worsens. The CT scan of the abdomen pelvis was interpreted by the radiologist and I reviewed the impression. The impression states there is recurrent diffuse acute pancreatitis with small amount of free fluid. There is no free air present. There is no walled off fluid collection. We contacted [facility] in [place] and they are at high capacity and not accepting transfers of this type. We also contacted [facility] and they stated that the patient could be placed on a wait list. They are looking at bed availability after 24 hours from now. 03/14/24 00:20 Week contacted [facility] and I spoke with hospitalist Dr. Brady. I reviewed the patient history, chief complaint, physical findings, laboratory and radiographic study results as well as response to our intervention. He accepts the patient in transfer. They will contact us with a bed Counseled pt/family regarding: lab results, diagnosis, rad results Medical Desision Making - Independent Historian Additional History obtained from: Spouse - Diagnostic Testing Diagnostic test were ordered, analyzed, and reviewed by me: Yes Radiological Interpretation: Reviewed by me, Teleradiologist Report - Risk of complications The pt has a high risk of morbidity or mortality based on: Decision regarding hospitilization or escalation of hosp level of care - Departure Departure Disposition: Transfer Clinical Impression: Acute pancreatitis, Leukocytosis, Lactic acidemia Condition: Fair Critical Care Time: Yes Critical Care Time(excluding separately billable procedures): Critical 30-74 mins (60) Referrals: DORA AGARWAL MD [Primary Care Provider] - Follow up/PCP as directed
[2024-03-13 20:16] VITALS: TEMP 97.6
[2024-03-13] MEDS ORDERED: PROTONIX 40 MG IV IV ONE (20:21)
[2024-03-13] MEDS ORDERED: Hydromorphone 1 mg/ml Injection ONE ×3 (20:21→21:12)
[2024-03-13] MEDS ORDERED: Sodium Chloride 0.9% 1000 ML 1,000 ML ONE ×2 (20:21→22:33)
[2024-03-13] MEDS: Sodium Chloride 0.9% 1000 ML 1,000 ML IV STA (20:27)
[2024-03-13] MEDS: PROTONIX 40 MG IV IV ONE (20:27)
[2024-03-13 20:28] LABS: Absolute Neutrophil Ct (ANC) 18.23 x10^3/uL (1.78-5.38); BASOPHIL % 0.3 % (0.2-1.2); Basophil (Absolute #) 0.08 x10^3/uL (0.01-0.08); Eosinophil % 1.1 % (0.8-7.0); Eosinophil (Absolute #) 0.31 x10^3/uL (0.04-0.54); Hematocrit 42.1 % (40.1-51.0); Hemoglobin 14.8 g/dL (13.7-17.5); IMMATURE GRAN # 0.25 x10^3u/L (0.001-0.031); IMMATURE GRAN % 0.9 % (0.001-0.429); Lymphocyte (Absolute #) 6.39 x10^3/uL (1.32-3.57); Lymphocytes % 23.6 % (21.8-53.1); Mean Cell Volume 88.8 fL (79.0-92.2); Mean Corpuscular Hemoglobin 31.2 pg (25.7-32.2); Mean Corpuscular Hgb Concent. 35.2 g/dL (32.3-36.5); Mean Platelet Volume 7.9 fL (9.4-12.4); Monocyte (Absolute #) 1.79 x10^3/uL (0.30-0.82); Monocytes % 6.6 % (5.3-12.2); Neutrophil % 67.5 % (34.0-67.9); Platelet Count 323 x10^3/uL (163-337); Red Blood Count 4.74 x10^6/uL (4.63-6.08); Red Cell Distribution Width 12.8 % (11.6-14.4)
[2024-03-13] MEDS: Hydromorphone 1 mg/ml Injection IV ONE ×3 (20:28→21:14)
[2024-03-13 20:39] LABS: White Blood Count 27.1 x10^3/uL (4.23-9.07)
[2024-03-13 20:43] LABS: ALBUMIN 4.5 g/dL (3.5-5.0); BILIRUBIN,TOTAL 0.8 mg/dL (0.2-1.3); Creatinine 1 1.13 mg/dL (0.66-1.25); EST GLOMERULAR FILTRATION RATE 83.2 ML/MIN; Total Protein 7.6 g/dL (6.3-8.2)
[2024-03-13] MEDS ORDERED: Compazine 10 MG/2 ML ONE (21:13)
[2024-03-13] MEDS: Compazine 10 MG/2 ML IV ONE (21:14)
[2024-03-13] MEDS ORDERED: Merrem IV ONE (22:32)
[2024-03-13] MEDS ORDERED: Lactated Ringers 1,000 ML IV ONE (22:33)
[2024-03-13] MEDS ORDERED: Sodium Chloride 100ML MINI-BAG PLUS 100 ML IV ONE (22:33)
[2024-03-13] MEDS ORDERED: POTASSIUM CHLORIDE 20 mEq IN WATER 100ML 100 ML IV ONE (22:34)
[2024-03-13] MEDS: POTASSIUM CHLORIDE 20 mEq IN WATER 100ML 20 MEQ/100 ML BAG IV ONE (22:40)
[2024-03-13] MEDS: Merrem 1 GM in Sodium Chloride 100ML MINI-BAG PLUS 100 ML IV ONE (22:40)
[2024-03-13] MEDS: Sodium Chloride 0.9% 1000 ML 1,000 ML IV SCH (22:40)
[2024-03-13] MEDS: Lactated Ringers 1,000 ML IV ONE (22:41)
[2024-03-13] MEDS ORDERED: Hydromorphone 1 mg/ml Injection IV ONE (23:06)
[2024-03-13 23:34] LABS: Slide Review 1 YES
[2024-03-14] MEDS ORDERED: Hydromorphone 1 mg/ml Injection ONE (00:49)
[2024-03-14] MEDS: Hydromorphone 1 mg/ml Injection IV ONE (00:52)
[2024-03-14 02:09] VITALS: O2SAT 95
[2024-03-14] MEDS ORDERED: Sodium Chloride 0.9% 1000 ML 1,000 ML ONE (03:12)
[2024-03-14] MEDS: Sodium Chloride 0.9% 1000 ML 1,000 ML IV SCH (03:18)
[2024-03-14 03:48] VITALS: BP 153/101; PULSE 88; RESP 16
--- NOTE | 2024-03-14 09:03 | XRAY ---
Indication: Abdominal pain. History pancreatitis. Multiple contiguous axial images obtained through the abdomen and pelvis without contrast. Comparison: December 25, 2023 Lung bases clear. Heart not enlarged. Noncontrasted stomach and bowel loops appear nonobstructed. Recurrent more diffuse appearing pancreatic edema with peripancreatic stranding favoring acute pancreatitis. Small free fluid but no walled off fluid collection or free air. Again diffuse fatty liver. Remaining liver, gallbladder, spleen, adrenal glands, kidneys, ureters, bladder, and aorta are unremarkable for noncontrast exam. Osseous structures intact again with incidental L4-L5 fusion with intact posterior hardware. Impression: Recurrent more diffuse acute pancreatitis with small free fluid. Again incidental fatty liver and L4-L5 fusion.
== END 2024-03-14 03:33 | disposition short-term general hospital (02) ==
LOC: ED 20:02
DX: K85.90 Acute pancreatitis without necrosis or infection, unspecified (principal); D72.829 Elevated white blood cell count, unspecified; E87.20 Acidosis, unspecified; R10.9 Unspecified abdominal pain; R11.2 Nausea with vomiting, unspecified; I10 Essential (primary) hypertension; Z79.899 Other long term (current) drug therapy
CPT/HCPCS: 36000; 36415; 74176; 80053; 82150; 83605; 83690; 85025; 87040; 96365; 96367; 96374; 96375; 96376; 99285; 99291; J1170; J3480

== ENCOUNTER 2024-08-03 18:02 | Observation (INO) | payer OTHER ==
[2024-08-03] MEDS ORDERED: Hydromorphone 1 mg/ml Injection ONE ×3 (18:19→22:05)
[2024-08-03] MEDS ORDERED: Zofran 4 MG/2 ML VIAL ONE (18:19)
[2024-08-03] MEDS: Hydromorphone 1 mg/ml Injection IV ONE ×3 (18:20→22:07)
[2024-08-03] MEDS: Zofran 4 MG/2 ML VIAL IV ONE (18:29)
[2024-08-03] MEDS ORDERED: Sodium Chloride 0.9% 1000 ML 1,000 ML ONE (18:32)
[2024-08-03] MEDS: Sodium Chloride 0.9% 1000 ML 1,000 ML IV STA (18:33)
[2024-08-03 18:35] LABS: Absolute Neutrophil Ct (ANC) 6.85 x10^3/uL (1.78-5.38); BASOPHIL % 0.5 % (0.2-1.2); Basophil (Absolute #) 0.06 x10^3/uL (0.01-0.08); Eosinophil % 2.7 % (0.8-7.0); Hematocrit 41.6 % (40.1-51.0); Hemoglobin 14.5 g/dL (13.7-17.5); IMMATURE GRAN # 0.04 x10^3u/L (0.001-0.031); IMMATURE GRAN % 0.4 % (0.001-0.429); Lymphocyte (Absolute #) 3.06 x10^3/uL (1.32-3.57); Lymphocytes % 27.4 % (21.8-53.1); Mean Cell Volume 81.3 fL (79.0-92.2); Mean Corpuscular Hemoglobin 28.3 pg (25.7-32.2); Mean Corpuscular Hgb Concent. 34.9 g/dL (32.3-36.5); Mean Platelet Volume 8.7 fL (9.4-12.4); Monocyte (Absolute #) 0.85 x10^3/uL (0.30-0.82); Monocytes % 7.6 % (5.3-12.2); Neutrophil % 61.4 % (34.0-67.9); Platelet Count 322 x10^3/uL (163-337); Red Blood Count 5.12 x10^6/uL (4.63-6.08); Red Cell Distribution Width 14.5 % (11.6-14.4); White Blood Count 11.2 x10^3/uL (4.23-9.07)
[2024-08-03] MEDS ORDERED: Ativan 2 MG/1 ML VIAL ONE (18:37)
[2024-08-03 18:41] LABS: Appearance Clear (Clear); Bacteria None Seen /HPF (None Seen); Bilirubin Negative (Negative); Blood Negative (Negative); Epithelial Cells None Seen /HPF (None Seen); Glucose, Urine Negative (Negative); Hyaline Casts NONE SEEN /LPF (0-2); Ketones Negative (Negative); Leukocyte Esterase Negative (Negative); Nitrite Negative (Negative); Protein,Urine Dip Negative (Negative); RBC 0-2 /HPF (0-5); Specific Gravity <=1.005 (1.005-1.030); Urobilinogen 0.2 mg/dL (0.2); WBC 0-2 /HPF (0-5)
[2024-08-03] MEDS: Ativan 2 MG/1 ML VIAL IV ONE (18:42)
[2024-08-03 18:48] LABS: ALBUMIN 4.9 g/dL (3.5-5.0); ANION GAP 16.4 MEQ/L (5-15); BILIRUBIN,TOTAL 0.6 mg/dL (0.2-1.3); Calcium 10.2 mg/dL (8.4-10.2); Creatinine 1 0.77 mg/dL (0.66-1.25); EST GLOMERULAR FILTRATION RATE 113.9 ML/MIN; Potassium 3.8 mmol/L (3.5-5.1); Total Protein 8.2 g/dL (6.3-8.2)
--- NOTE | 2024-08-03 19:03 | ERPHSYRPT ---
- History of Present Illness Source: patient Exam Limitations: no limitations Patient Subjective Stated Complaint: Abdominal pain Triage Nursing Assessment: Patient ambulated back to ED and transferred self to bed. Patient A+O X 3. Patient's skin flushed, warm and dry. Patient complains of abdominal pain to mid abdominal area 04/05. Patient denies N/V or diarrhea. Patient has hx of pancreatitis and had labs done today. Patient's PCP requested for patient to come to ED. Hx Tetanus, Diphtheria Vaccination/Date Given: Yes Hx Influenza Vaccination/Date Given: Yes Hx Pneumococcal Vaccination/Date Given: No Immunizations Up to Date: Yes <MADYSON RODRIGUEZ - Last Filed: 08/03/24 18:59> <VONNIE GRECO - Last Filed: 08/03/24 21:39> - History of Present Illness Time Seen by Provider: 08/03/24 18:20 Physician History: Patient is here with midepigastric pain. Patient states that pain is a 7 out of 10. Radiates to his mid back. No nausea, vomiting, diarrhea. Patient has a history of necrotizing pancreatitis. States that he started developing abdominal pain over the past 24 hours. Given this his PCP, Dr. Agarwal ordered outpatient labs. This demonstrated likely pancreatitis. Therefore sent into the emergency department for pain control, CT scan, potential admission. Yen ent is taking PO well. Same number of urinations and defecations. The patient has no signs of altered mental status, nuchal rigidity, signs of meningitis. The patient is up-to-date on all vaccinations. (MADYSON RODRIGUEZ) Allergies/Adverse Reactions: No Known Drug Allergies Allergy (Verified 08/03/24 18:10) Home Medications: Lipase/Protease/Amylase [Monica Sanabria 36,000 Unit Capsule] 2 cap PO TIDWMEALS 08/03/24 [History] Travel Risk - International Travel Have you traveled outside of the country in past 3 weeks: No - Emerging Infectious Disease Are you exhibiting symptoms associated with any current EIDs: No Symptoms: Abdominal Pain, Vomitting <MADYSON RODRIGUEZ - Last Filed: 08/03/24 18:59> - Past Medical History Pertinent Past Medical History: Yes Neurological History: No Pertinent History ENT History: No Pertinent History Cardiac History: Hypertension Respiratory History: No Pertinent History Endocrine Medical History: No Pertinent History Musculoskeletal History: Osteoarthritis GI Medical History: GERD, Pancreatitis History: No Pertinent History Psycho-Social History: No Pertinent History Male Reproductive Disorders: No Pertinent History Other Medical History: HX LEFT ROTATOR CUFF REPAIR 2020, OSTEOCHONDROMA REMOVAL RIGHT FEMUR PROXIMAL 2018 - Past Surgical History Past Surgical History: Yes Neuro Surgical History: No Pertinent History Cardiac: No Pertinent History Respiratory: No Pertinent History Gastrointestinal: No Pertinent History Genitourinary: No Pertinent History Musculoskeletal: Other Male Surgical History: No Pertinent History Other Surgical History: l4 l5 fusion. right hip. bicep and tendon in shoulder. back surgery - Social History Smoking Status: Never smoker Exposure to second hand smoke: No Drug Use: none Patient Lives Alone: No - Social Determinants of Health Will the patient participate in the screening: Yes Do you worry about a steady place to live?: No Do you have any problems with any of the following?: No known problems In the past 12 months,have you had to go without utilities?: No Transportation Issues: No Has anyone in your support network made you feel unsafe?: No Have you or anyone in your house had to go without enough: No <MADYSON RODRIGUEZ - Last Filed: 08/03/24 18:59> - Physical Exam SpO2: 95 <MADYSON RODRIGUEZ - Last Filed: 08/03/24 18:59> - Nursing Vital Signs Nursing Vital Signs: Initial Vital Signs Pulse Rate 106 H 08/03/24 18:09 Respiratory Rate 18 08/03/24 18:09 Blood Pressure 172/104 08/03/24 18:09 O2 Sat by Pulse Oximetry 93 L 08/03/24 18:09 Pain Scale Pain Intensity 6 - Physical Exam Comments: 08/03/24 19:01 Review of Systems Constitutional: Negative for fever. HENT: Negative for congestion. Respiratory: Negative for shortness of breath. Cardiovascular: Negative for chest pain. Gastrointestinal: Negative for abdominal pain. Genitourinary: Negative for dysuria. Musculoskeletal: Negative for back pain. Skin: Negative for rash. Neurological: Negative for headaches. Psychiatric/Behavioral: Negative for behavioral problems. All other systems reviewed and are negative. Physical Exam Vitals signs and nursing note reviewed. Constitutional: Appearance: Patient is well-developed. HENT: Head: Normocephalic and atraumatic. Eyes: Conjunctiva/sclera: Conjunctivae normal. Neck: Musculoskeletal: Normal range of motion. Trachea: No tracheal deviation. Cardiovascular: Rate and Rhythm: Normal rate. Pulmonary: Effort: Pulmonary effort is normal. No respiratory distress. Abdominal: Palpations: Midepigastric tenderness. No rebound or guarding. Musculoskeletal: General: No deformity. Skin: General: Skin is warm and dry. Neurological/ Psychiatric: Mental Status: Mental status, behavior, interaction with environment is appropriate for patient's age and condition (MADYSON RODRIGUEZ) - Course Nursing assessment & vital signs reviewed: Yes <MADYSON RODRIGUEZ - Last Filed: 08/03/24 18:59> - CT Exams Abdomen/Pelvis CT Interpretation: Tele-radiologist Report (Recurrent pancreatitis at head of pancreas with small free fluid and adjacent reactive duodenitis. Fatty liver hepatic and renal cysts) <VONNIE GRECO - Last Filed: 08/03/24 21:39> Ordered Tests: Active Orders 24 hr Category Date Time Status EKG-ER Only STAT Care 08/03/24 18:25 Active IV Insertion STAT Care 08/03/24 18:25 Active NPO (ED) STAT Care 08/03/24 18:25 Active ABDOMEN AND PELVIS W CONTRAST [CT] Stat Exams 08/03/24 19:45 Taken AMYLASE Stat Lab 08/03/24 18:15 Completed CBC W DIFF Stat Lab 08/03/24 18:15 Completed CMP Stat Lab 08/03/24 18:15 Completed CULTURE,URINE Stat Lab 08/03/24 18:26 Received LIPASE Stat Lab 08/03/24 18:15 Completed TROPONIN Q4H Lab 08/03/24 18:15 Completed TROPONIN Q4H Lab 08/03/24 22:30 Ordered TROPONIN Q4H Lab 08/04/24 02:30 Ordered UA W/RFX UR CULTURE Stat Lab 08/03/24 18:26 Completed Transfer Order Routine Transfer 08/03/24 Ordered Medication Summary Discontinued Medications Generic Name Dose Route Start Last Admin Trade Name Freq PRN Reason Stop Dose Admin Hydromorphone HCl Confirm 08/03/24 18:19 Hydromorphone 1 Mg/1ml Inj Administered 08/03/24 18:20 Dose 1 mg .ROUTE .STK-MED ONE Hydromorphone HCl 1 mg 08/03/24 18:32 08/03/24 18:20 Hydromorphone 1 Mg/1ml Inj IV 08/03/24 18:33 1 mg STAT ONE Administration Hydromorphone HCl 1 mg 08/03/24 19:57 08/03/24 20:00 Hydromorphone 1 Mg/1ml Inj IV 08/03/24 19:58 1 mg STAT ONE Administration Hydromorphone HCl Confirm 08/03/24 19:59 Hydromorphone 1 Mg/1ml Inj Administered 08/03/24 20:00 Dose 1 mg .ROUTE .STK-MED ONE Sodium Chloride 1,000 mls @ 999 mls/hr 08/03/24 18:25 08/03/24 20:28 Sodium Chloride 0.9% 1000 Ml IV 08/03/24 19:25 Infused .Q1H1M STA Infusion Sodium Chloride Confirm 08/03/24 18:32 Sodium Chloride 0.9% 1000 Ml Administered 08/03/24 18:33 Dose 1,000 mls @ ud .ROUTE .STK-MED ONE Lorazepam 1 mg 08/03/24 18:33 08/03/24 18:42 Lorazepam 2 Mg/1 Ml 2 Mg Vial IV 08/03/24 18:34 1 mg STAT ONE Administration Lorazepam Confirm 08/03/24 18:37 Lorazepam 2 Mg/1 Ml 2 Mg Vial Administered 08/03/24 18:38 Dose 2 mg .ROUTE .STK-MED ONE Ondansetron HCl Confirm 08/03/24 18:19 Ondansetron Hcl 4 Mg/2 Ml Vial Administered 08/03/24 18:20 Dose 8 mg .ROUTE .STK-MED ONE Ondansetron HCl 8 mg 08/03/24 18:20 08/03/24 18:29 Ondansetron Hcl 4 Mg/2 Ml Vial IV 08/03/24 18:21 8 mg STAT ONE Administration Lab/Rad Data: Laboratory Result Diagrams 08/03/24 18:15 08/03/24 18:15 Laboratory Results 08/03/24 08/03/24 08/03/24 Range/Units 18:26 18:15 18:15 WBC (4.23-9.07) x10^3/uL RBC (4.63-6.08) x10^6/uL Hgb (13.7-17.5) g/dL Hct (40.1-51.0) % MCV (79.0-92.2) fL MCH (25.7-32.2) pg MCHC (32.3-36.5) g/dL RDW (11.6-14.4) % Plt Count (163-337) x10^3/uL MPV (9.4-12.4) fL Gran % (34.0-67.9) % Immature Gran % (Auto) (0.001-0.429) % Nucleat RBC Rel Count (0.00-0.2) % Eos # (Auto) (0.04-0.54) x10^3/uL Immature Gran # (Auto) (0.001-0.031) x10^3u/L Absolute Lymphs (auto) (1.32-3.57) x10^3/uL Absolute Monos (auto) (0.30-0.82) x10^3/uL Absolute Nucleated RBC (0.00-0.012) x10^3u/L Lymphocytes % (21.8-53.1) % Monocytes % (5.3-12.2) % Eosinophils % (0.8-7.0) % Basophils % (0.2-1.2) % Absolute Granulocytes (1.78-5.38) x10^3/uL Basophils # (0.01-0.08) x10^3/uL Sodium 137 (135-145) mmol/L Potassium 3.8 (3.5-5.1) mmol/L Chloride 100 (98-107) mmol/L Carbon Dioxide 24 (22-30) mmol/L Anion Gap 16.4 H (5-15) MEQ/L BUN 15 (9-20) mg/dL Creatinine 0.77 (0.66-1.25) mg/dL Estimated GFR 113.9 ML/MIN Glucose 142 H (74-106) mg/dL Calcium 10.2 (8.4-10.2) mg/dL Total Bilirubin 0.60 (0.2-1.3) mg/dL AST 67 H (17-59) U/L ALT 116 H (0-50) U/L Alkaline Phosphatase 125 (38-126) U/L Troponin I < 0.012 (0.000-0.033) ng/mL Serum Total Protein 8.2 (6.3-8.2) g/dL Albumin 4.9 (3.5-5.0) g/dL Amylase 223 H (30-110) U/L Lipase 1943 H (23-300) U/L Urine Color Yellow (Yellow) Urine Appearance Clear (Clear) Urine pH 7.0 (4.6-8.0) Ur Specific [place] <=1.005 (1.005-1.030) Urine Protein Negative (Negative) Urine Glucose (UA) Negative (Negative) mg/dL Urine Ketones Negative (Negative) Urine Blood Negative (Negative) Urine Nitrite Negative (Negative) Urine Bilirubin Negative (Negative) Urine Urobilinogen 0.2 (0.2) mg/dL Ur Leukocyte Esterase Negative (Negative) U Hyaline Cast (Auto) NONE SEEN (0-2) /LPF Urine Microscopic RBC 0-2 (0-5) /HPF Urine Microscopic WBC 0-2 (0-5) /HPF Ur Epithelial Cells None Seen (None Seen) /HPF Urine Bacteria None Seen (None Seen) /HPF Urine Culture Reflexed ORDERED SEPARATELY (NO) 08/03/24 Range/Units 18:15 WBC 11.2 H (4.23-9.07) x10^3/uL RBC 5.12 (4.63-6.08) x10^6/uL Hgb 14.5 (13.7-17.5) g/dL Hct 41.6 (40.1-51.0) % MCV 81.3 (79.0-92.2) fL MCH 28.3 (25.7-32.2) pg MCHC 34.9 (32.3-36.5) g/dL RDW 14.5 H (11.6-14.4) % Plt Count 322 (163-337) x10^3/uL MPV 8.7 L (9.4-12.4) fL Gran % 61.4 (34.0-67.9) % Immature Gran % (Auto) 0.4 (0.001-0.429) % Nucleat RBC Rel Count 0.0 (0.00-0.2) % Eos # (Auto) 0.30 (0.04-0.54) x10^3/uL Immature Gran # (Auto) 0.04 H (0.001-0.031) x10^3u/L Absolute Lymphs (auto) 3.06 (1.32-3.57) x10^3/uL Absolute Monos (auto) 0.85 H (0.30-0.82) x10^3/uL Absolute Nucleated RBC 0.00 (0.00-0.012) x10^3u/L Lymphocytes % 27.4 (21.8-53.1) % Monocytes % 7.6 (5.3-12.2) % Eosinophils % 2.7 (0.8-7.0) % Basophils % 0.5 (0.2-1.2) % Absolute Granulocytes 6.85 H (1.78-5.38) x10^3/uL Basophils # 0.06 (0.01-0.08) x10^3/uL Sodium (135-145) mmol/L Potassium (3.5-5.1) mmol/L Chloride (98-107) mmol/L Carbon Dioxide (22-30) mmol/L Anion Gap (5-15) MEQ/L BUN (9-20) mg/dL Creatinine (0.66-1.25) mg/dL Estimated GFR ML/MIN Glucose (74-106) mg/dL Calcium (8.4-10.2) mg/dL Total Bilirubin (0.2-1.3) mg/dL AST (17-59) U/L ALT (0-50) U/L Alkaline Phosphatase (38-126) U/L Troponin I (0.000-0.033) ng/mL Serum Total Protein (6.3-8.2) g/dL Albumin (3.5-5.0) g/dL Amylase (30-110) U/L Lipase (23-300) U/L Urine Color (Yellow) Urine Appearance (Clear) Urine pH (4.6-8.0) Ur Specific [place] (1.005-1.030) Urine Protein (Negative) Urine Glucose (UA) (Negative) mg/dL Urine Ketones (Negative) Urine Blood (Negative) Urine Nitrite (Negative) Urine Bilirubin (Negative) Urine Urobilinogen (0.2) mg/dL Ur Leukocyte Esterase (Negative) U Hyaline Cast (Auto) (0-2) /LPF Urine Microscopic RBC (0-5) /HPF Urine Microscopic WBC (0-5) /HPF Ur Epithelial Cells (None Seen) /HPF Urine Bacteria (None Seen) /HPF Urine Culture Reflexed (NO) - Progress Progress: improved Counseled pt/family regarding: lab results, diagnosis, need for follow-up, rad results <MADYSON RODRIGUEZ - Last Filed: 08/03/24 18:59> <VONNIE GRECO - Last Filed: 08/03/24 21:39> - Progress Progress Note: 08/03/24 19:02 Differential diagnosis includes acute pancreatitis, other infection, UTI, pancreatitis flare. Plan for basic labs, IV fluids, pain control, potential admission to the hospital. At 7 PM I did transfer care to Dr. Greco. We did discuss all labs and imaging. Likely admission disposition. He will follow-up and disposition mal ropriately. (MADYSON RODRIGUEZ) 44-year-old male presents to our ED for evaluation of abdominal pain. Patient evaluated by Dr. Rodriguez. Dr. Greco advised follow-up on pending CT scan. Lipase elevated at 1900. CT reveals a pancreatitis around the pancreatic head with reactive duodenitis and free fluid. Patient has been requiring Dilaudid for pain control. Patient reassessed he is comfortable. Patient will be admitted for further evaluation and treatment of his pancreatitis. Case discussed with hospitalist who accepts admission to observation at 9:35 PM. Plan of care discussed with patient. He agrees to admission at [facility] for further evaluation and treatment. Portions of this note were created with voice recognition technology. There may be grammatical, spelling, punctuation or sound alike errors Complexity problem addressed is moderate acute complicated no critical care time. Complex of data reviewed and analyzed is extensive. Test ordered chest reviewed results analyzed and correlated clinically with history and physical exam. Management discussed with hospitalist accepts admission to observation at 9:35 PM. Risk of complication and or risk of morbidity/mortality of patient management is high. Patient requires hospitalization for further evaluation and treatment. Vital stable. Time spent to admit patient approximately 20 minutes. Plan of care established for shared decision making. No social det erminants of health present to impede follow-up. Portions of this note were created with voice recognition technology. There may be grammatical, spelling, punctuation or sound alike errors 11/07/24 21:37 (VONNIE GRECO) - Departure Critical Care Time: No <MADYSON RODRIGUEZ - Last Filed: 08/03/24 18:59> - Departure Departure Disposition: Observation <VONNIE GRECO - Last Filed: 08/03/24 21:39> - Departure Clinical Impression: Acute pancreatitis, Duodenitis Condition: Stable Referrals: DORA AGARWAL MD [Primary Care Provider] - Follow up/PCP as directed
--- NOTE | 2024-08-04 00:11 | PCM.HP ---
History of Present Illness - Chief Complaint Chief Complaint: Abdominal pain Date: 08/04/24 History of Present Illness: 44-year-old man with history of recurrent pancreatitis, with secondary diabetes and exocrine insufficiency, who presents with recurrent epigastric pain that he says is similar to his prior pancreatitis pain. Patient has had 6 episodes of pancreatitis since May 2023. Cause is unclear, but he was noted to have some gallbladder sludge, so underwent cholecystectomy Augusttow to prevent further episodes. He has not had any further flares since then until today. He has had enough chronic damage to require pancreatic enzymes limitation and initiation of insulin therapy. He also has a chronic pseudocyst that has been slowly improving. He follows with GI at . Yesterday, he had the onset of recurrent epigastric pain, not associated with nausea and vomiting, progressively worsening over the last 24 hours. At first he helped it resolve itself, but became worse this afternoon. He went to his PCP and had labs drawn showing elevated lipase, and was told to come to the ED. He currently has persistent pain, although improved with Dilaudid in the ED. He is feeling somewhat hungry now. He denies any alcohol consumption. He has been on a low-fat diet from his GI doctor, but notes he has been a little less compliant with it recently. - Review of Systems All Other Systems: Reviewed and Negative Medications & Allergies Home Medications: Home Medication List PANTOPRAZOLE 40 mg Tablet [Protonix 40MG Tablet] 40 mg PO QAM #30 tab 04/16/22 [Rx Confirmed 08/03/24] Insulin Aspart Prot/Insuln Asp [Relion Novolog Mix 70-30 Flxpn] 10 unit SQ TID 08/03/24 [History Confirmed 08/03/24] Insulin NPH Hum/Reg Insulin Hm [Relion Novolin 70-30 Flexpen] 10 unit .ROUTE BID 08/03/24 [History Confirmed 08/03/24] Lipase/Protease/Amylase [Monica Sanabria 36,000 Unit Capsule] 2 cap PO TIDWMEALS 08/03/24 [History Confirmed 08/03/24] Ropinirole HCl 0.5 mg [Requip 0.5 MG] 0.5 tab PO HS 08/03/24 [History Confirmed 08/03/24] Allergies/Adverse Reactions: Allergies Allergy/AdvReac Type Severity Reaction Status Date / Time No Known Drug Allergies Allergy Verified 08/03/24 18:10 - Past Medical History Past Medical History: Yes Neurological History: No Pertinent History ENT History: No Pertinent History Cardiac History: Hypertension Respiratory History: No Pertinent History Endocrine Medical History: No Pertinent History, Other (Pancreatic insufficiency, secondary diabetes) Musculoskelatal History: Osteoarthritis GI Medical History: GERD, Pancreatitis (Recurrent) History: No Pertinent History Pyscho-Social History: No Pertinent History Male Reproductive Disorders: No Pertinent History Comment: HX LEFT ROTATOR CUFF REPAIR 2020, OSTEOCHONDROMA REMOVAL RIGHT FEMUR PROXIMAL 2018, - Past Surgical History Past Surgical History: Yes Neuro Surgical History: No Pertinent History Cardiac History: No Pertinent History Respiratory Surgery: No Pertinent History GI Surgical History: No Pertinent History, Cholecystectomy (May this year) Genitourinary Surgical Hx: No Pertinent History Musculskeletal Surgical Hx: Other Male Surgical History: No Pertinent History Other Surgical History: l4 l5 fusion. right hip. bicep and tendon in shoulder. back surgery Significant Family History: no pertinent family hx - Social History Smoking Status: Former smoker Exposure to second hand smoke: No Alcohol: None Drug Use: none - Social Determinants of Health Will the patient participate in the screening: Yes Do you worry about a steady place to live?: No Do you have any problems with any of the following?: No known problems In the past 12 months,have you had to go without utilities?: No Have you or anyone in your house had to go without enough: No Transportation Issues: No Has anyone in your support network made you feel unsafe?: No Does the patient want assistance with any of the above?: No - Physical Exam Vital Signs: Vital Signs - 24 hr Temp Pulse Resp BP BP Pulse Ox 08/03/24 22:36 97.5 F 79 21 120/84 93 L 08/03/24 22:01 84 18 94 L 08/03/24 21:30 88 18 159/97 98 08/03/24 21:00 71 14 145/87 94 L 08/03/24 20:30 67 14 155/98 99 08/03/24 20:00 88 15 154/96 94 L 08/03/24 19:51 86 19 150/97 95 08/03/24 19:50 75 16 98 08/03/24 19:41 88 20 96 08/03/24 19:03 95 08/03/24 19:00 75 18 158/86 96 08/03/24 18:55 138/79 08/03/24 18:41 77 14 157/98 95 08/03/24 18:30 95 H 16 168/104 94 L 08/03/24 18:12 98.3 F 76 20 172/104 99 08/03/24 18:09 106 H 18 172/104 93 L General Appearance: no apparent distress, other (Sitting up in bed) Neurologic Exam: alert, oriented x 3, cooperative, normal mood/affect Eye Exam: PERRL/EOMI, eyes nml inspection Ears, Nose, Throat Exam: moist mucous membranes Neck Exam: non-tender, full range of motion Respiratory Exam: normal breath sounds, lungs clear, No respiratory distress Cardiovascular Exam: regular rate/rhythm, normal heart sounds, No edema Gastrointestinal/Abdomen Exam: normal bowel sounds, tenderness (Mild, epigastric), No distention Back Exam: normal range of motion Extremity Exam: normal range of motion, No joint swelling Skin Exam: normal color, No rash Results - Labs Lab/Micro Results: Lab Results-Last 24 Hours 08/03/24 08/03/24 08/03/24 Range/Units 18:15 18:15 18:15 WBC 11.2 H (4.23-9.07) x10^3/uL RBC 5.12 (4.63-6.08) x10^6/uL Hgb 14.5 (13.7-17.5) g/dL Hct 41.6 (40.1-51.0) % MCV 81.3 (79.0-92.2) fL MCH 28.3 (25.7-32.2) pg MCHC 34.9 (32.3-36.5) g/dL RDW 14.5 H (11.6-14.4) % Plt Count 322 (163-337) x10^3/uL MPV 8.7 L (9.4-12.4) fL Gran % 61.4 (34.0-67.9) % Immature Gran % (Auto) 0.4 (0.001-0.429) % Nucleat RBC Rel Count 0.0 (0.00-0.2) % Eos # (Auto) 0.30 (0.04-0.54) x10^3/uL Immature Gran # (Auto) 0.04 H (0.001-0.031) x10^3u/L Absolute Lymphs (auto) 3.06 (1.32-3.57) x10^3/uL Absolute Monos (auto) 0.85 H (0.30-0.82) x10^3/uL Absolute Nucleated RBC 0.00 (0.00-0.012) x10^3u/L Lymphocytes % 27.4 (21.8-53.1) % Monocytes % 7.6 (5.3-12.2) % Eosinophils % 2.7 (0.8-7.0) % Basophils % 0.5 (0.2-1.2) % Absolute Granulocytes 6.85 H (1.78-5.38) x10^3/uL Basophils # 0.06 (0.01-0.08) x10^3/uL Sodium 137 (135-145) mmol/L Potassium 3.8 (3.5-5.1) mmol/L Chloride 100 (98-107) mmol/L Carbon Dioxide 24 (22-30) mmol/L Anion Gap 16.4 H (5-15) MEQ/L BUN 15 (9-20) mg/dL Creatinine 0.77 (0.66-1.25) mg/dL Estimated GFR 113.9 ML/MIN Glucose 142 H (74-106) mg/dL POC Glucometer (74 to 106) mg/dL Calcium 10.2 (8.4-10.2) mg/dL Total Bilirubin 0.60 (0.2-1.3) mg/dL AST 67 H (17-59) U/L ALT 116 H (0-50) U/L Alkaline Phosphatase 125 (38-126) U/L Troponin I < 0.012 (0.000-0.033) ng/mL Serum Total Protein 8.2 (6.3-8.2) g/dL Albumin 4.9 (3.5-5.0) g/dL Amylase 223 H (30-110) U/L Lipase 1943 H (23-300) U/L Urine Color (Yellow) Urine Appearance (Clear) Urine pH (4.6-8.0) Ur Specific [place] (1.005-1.030) Urine Protein (Negative) Urine Glucose (UA) (Negative) mg/dL Urine Ketones (Negative) Urine Blood (Negative) Urine Nitrite (Negative) Urine Bilirubin (Negative) Urine Urobilinogen (0.2) mg/dL Ur Leukocyte Esterase (Negative) U Hyaline Cast (Auto) (0-2) /LPF Urine Microscopic RBC (0-5) /HPF Urine Microscopic WBC (0-5) /HPF Ur Epithelial Cells (None Seen) /HPF Urine Bacteria (None Seen) /HPF Urine Culture Reflexed (NO) 08/03/24 08/03/24 08/03/24 Range/Units 18:26 21:50 23:32 WBC (4.23-9.07) x10^3/uL RBC (4.63-6.08) x10^6/uL Hgb (13.7-17.5) g/dL Hct (40.1-51.0) % MCV (79.0-92.2) fL MCH (25.7-32.2) pg MCHC (32.3-36.5) g/dL RDW (11.6-14.4) % Plt Count (163-337) x10^3/uL MPV (9.4-12.4) fL Gran % (34.0-67.9) % Immature Gran % (Auto) (0.001-0.429) % Nucleat RBC Rel Count (0.00-0.2) % Eos # (Auto) (0.04-0.54) x10^3/uL Immature Gran # (Auto) (0.001-0.031) x10^3u/L Absolute Lymphs (auto) (1.32-3.57) x10^3/uL Absolute Monos (auto) (0.30-0.82) x10^3/uL Absolute Nucleated RBC (0.00-0.012) x10^3u/L Lymphocytes % (21.8-53.1) % Monocytes % (5.3-12.2) % Eosinophils % (0.8-7.0) % Basophils % (0.2-1.2) % Absolute Granulocytes (1.78-5.38) x10^3/uL Basophils # (0.01-0.08) x10^3/uL Sodium (135-145) mmol/L Potassium (3.5-5.1) mmol/L Chloride (98-107) mmol/L Carbon Dioxide (22-30) mmol/L Anion Gap (5-15) MEQ/L BUN (9-20) mg/dL Creatinine (0.66-1.25) mg/dL Estimated GFR ML/MIN Glucose (74-106) mg/dL POC Glucometer 124 H (74 to 106) mg/dL Calcium (8.4-10.2) mg/dL Total Bilirubin (0.2-1.3) mg/dL AST (17-59) U/L ALT (0-50) U/L Alkaline Phosphatase (38-126) U/L Troponin I < 0.012 (0.000-0.033) ng/mL Serum Total Protein (6.3-8.2) g/dL Albumin (3.5-5.0) g/dL Amylase (30-110) U/L Lipase (23-300) U/L Urine Color Yellow (Yellow) Urine Appearance Clear (Clear) Urine pH 7.0 (4.6-8.0) Ur Specific [place] <=1.005 (1.005-1.030) Urine Protein Negative (Negative) Urine Glucose (UA) Negative (Negative) mg/dL Urine Ketones Negative (Negative) Urine Blood Negative (Negative) Urine Nitrite Negative (Negative) Urine Bilirubin Negative (Negative) Urine Urobilinogen 0.2 (0.2) mg/dL Ur Leukocyte Esterase Negative (Negative) U Hyaline Cast (Auto) NONE SEEN (0-2) /LPF Urine Microscopic RBC 0-2 (0-5) /HPF Urine Microscopic WBC 0-2 (0-5) /HPF Ur Epithelial Cells None Seen (None Seen) /HPF Urine Bacteria None Seen (None Seen) /HPF Urine Culture Reflexed ORDERED SEPARATELY (NO) - Radiology Impressions Radiology Exams & Impressions: Radiology Procedures Category Date Time Status ABDOMEN AND PELVIS W CONTRAST [CT] Stat Exams 08/03/24 19:[address] abdomen/pelvis pending radiology report. Upon my review of images, there is some inflammation around the area of the pancreas and the duodenum. Assessment/Plan (1) Acute pancreatitis Current Visit: Yes Status: Acute Assessment & Plan: 44-year-old man with history of recurrent pancreatitis causing secondary diabetes and pancreatic insufficiency, here with recurrent acute pancreatitis. ## Acute pancreatitis no clear trigger, except possibly some dietary indiscretions from his low-fat diet. Denies alcohol use, and has not had his gallbladder removed. Lipase is only moderately elevated, but in patients with recurrent pancreatitis and loss of pancreatic parenchyma, decreased viable pancreatic volume leads to lower peak lactate levels during pancreatitis. N.p.o. NS at 100 mL/h PRN Dilaudid and Zofran Slowly reintroduce food as tolerated ## Secondary diabetes mellitus patient is on insulin 70/30 and mealtime insulin at home. Currently he is NPO. Place patient on moderate dose sliding scale insulin protocol q.6 hours Once patient is tolerating p.o. diet, change sliding scale to AC/HS, and co nsider restarting some basal insulin ## Pancreatic insufficiency secondary to recurrent pancreatitis. Once patient is able to tolerate p.o. diet, restart his pancreatic enzyme replacement CODE STATUS: Full code Prophylaxis: Low risk, encourage ambulation Diet: N.p.o. Dispo: Place in observation, expect discharge home in the next day or so Code(s): K85.90 - ACUTE PANCREATITIS WITHOUT NECROSIS OR INFECTION, UNSP Telemedicine Encounter - Telemedicine Encounter Telemedicine Encounter: "The entirety of this encounter was performed via Telemedicine" This visit was performed using real-time audio and video connection between my location and thepatients locationwith the assistance of a surrogateat the patients location. Written or verbal consent was obtained from the patient/guardian to perform this visit using[employer] Recovery[employer]medicine technology. Any patient questions regarding the telemedicine interaction were answered.
[2024-08-04] MEDS: Hydromorphone 1 mg/ml Injection IV PRN ×2 (00:17→13:47)
[2024-08-04] MEDS: Sodium Chloride 0.9% 1000 ML 1,000 ML IV SCH (00:30)
[2024-08-04] MEDS: Hydromorphone 1 mg/ml Injection IV ONE (02:30)
[2024-08-04 05:17] LABS: Hemoglobin 14.1 g/dL (13.7-17.5); Mean Cell Volume 83.3 fL (79.0-92.2); Mean Corpuscular Hgb Concent. 33.6 g/dL (32.3-36.5); Mean Platelet Volume 8.9 fL (9.4-12.4); Platelet Count 262 x10^3/uL (163-337); Red Blood Count 5.04 x10^6/uL (4.63-6.08); Red Cell Distribution Width 14.7 % (11.6-14.4)
[2024-08-04 05:44] LABS: ALBUMIN 4.3 g/dL (3.5-5.0); ANION GAP 14.1 MEQ/L (5-15); BILIRUBIN,TOTAL 2.4 mg/dL (0.2-1.3); Calcium 9.5 mg/dL (8.4-10.2); Creatinine 1 0.92 mg/dL (0.66-1.25); EST GLOMERULAR FILTRATION RATE 105.9 ML/MIN; Potassium 3.6 mmol/L (3.5-5.1); Total Protein 7.7 g/dL (6.3-8.2)
[2024-08-04] MEDS: HUMALOG SQ PRN (08:41)
--- NOTE | 2024-08-04 08:56 | XRAY ---
Indication: Acute pancreatitis. Multiple contiguous axial images obtained through the abdomen and pelvis using 80 cc Isovue 370 contrast. Comparison: July 04, 2024 Lung bases clear. Heart not enlarged. Noncontrasted stomach and bowel loops appear nonobstructed. Head and uncinate portion of pancreas now demonstrates edema and peripancreatic stranding favoring recurrent pancreatitis. Adjacent duodenum also demonstrates mild circumferential wall thickening presumed reactive lung with small free fluid. Remaining pancreatic body/tail phlegmon unchanged. No free air. Liver again demonstrates diffuse fatty attenuation with stable 2 hepatic cysts. Again previous cholecystectomy. Both kidneys enhance and excrete with a few stable bilateral renal cysts. Remaining spleen, adrenal glands, ureters, bladder, and aorta are unremarkable. No pathologic retroperitoneal lymphadenopathy. Osseous structures intact again with L4-L5 fusion. Impression: 1. Recurrent acute pancreatitis with reactive duodenitis and free fluid as detailed. Stable pancreatic body/tail phlegmon. 2. Again chronic findings including fatty liver, hepatic cysts, and bilateral renal cysts.
[2024-08-04] MEDS: Zofran 4 MG/2 ML VIAL IV PRN (10:25)
[2024-08-04] MEDS: Protonix 40MG Tablet PO SCH (10:25)
[2024-08-04] MEDS: PIPERACILLIN/TAZOBACTAM 3.375 GM in Sodium Chloride 100ML MINI-BAG PLUS 100 ML IV SCH (13:50)
--- NOTE | 2024-08-04 14:24 | XRAY ---
Indication: Right upper quadrant pain. Elevated liver enzymes. Cholecystectomy. Two-dimensional targeted ultrasound right upper quadrant abdomen performed. Comparison: June 22, 2023 Pancreas not well seen due to overlying bowel gas. Interval cholecystectomy. Visualized liver again 20.9 cm fatty hepatomegaly with 1.6 cm right lobe cyst. No new focal solid/cystic hepatic mass or ascites. Common bile duct measures 4.1 mm. No intrahepatic biliary distention. Right kidney measures 13.0 x 7.7 x 5.8 cm with again incidental 1.1 cm cortical cyst. Impression: Interval cholecystectomy without complications. Again nonvisualization pancreas, fatty hepatomegaly with hepatic cyst, and right renal cyst. No acute abnormalities.
[2024-08-04] MEDS: Requip 0.5 MG PO SCH (21:01)
[2024-08-05 05:54] LABS: Hematocrit 37.9 % (40.1-51.0); Hemoglobin 12.9 g/dL (13.7-17.5); Mean Cell Volume 82.9 fL (79.0-92.2); Mean Corpuscular Hemoglobin 28.2 pg (25.7-32.2); Platelet Count 248 x10^3/uL (163-337); Red Blood Count 4.57 x10^6/uL (4.63-6.08); Red Cell Distribution Width 14.7 % (11.6-14.4)
[2024-08-05 06:17] LABS: ALBUMIN 4.2 g/dL (3.5-5.0); ANION GAP 13.2 MEQ/L (5-15); BILIRUBIN,TOTAL 2.8 mg/dL (0.2-1.3); Calcium 9.5 mg/dL (8.4-10.2); Creatinine 1 0.89 mg/dL (0.66-1.25); EST GLOMERULAR FILTRATION RATE 109.1 ML/MIN; Potassium 3.9 mmol/L (3.5-5.1); Total Protein 7.2 g/dL (6.3-8.2)
--- NOTE | 2024-08-05 11:04 | PCM.NOTE ---
Date and Time: 08/05/24 1053 Subjective Assessment: 44-year-old man with history of recurrent pancreatitis, with secondary diabetes and exocrine insufficiency. He presented on 08/04/24 with recurrent epigastric pain that he says is similar to his prior pancreatitis pain. Patient has had 6 episodes of pancreatitis since May 2023. Cause is unclear, but he was noted to have some gallbladder sludge, so underwent cholecystectomy August to prevent further episodes. He has not had any further flares since then until today. He has had enough chronic damage to require pancreatic enzymes limitation and initiation of insulin therapy. He also has a chronic pseudocyst that has been slowly improving. He follows with GI at . On 08/03 he had the onset of r ecurrent epigastric pain, not associated with nausea and vomiting, progressively worsening over 24 hours. At first he hoped it resolved itself, but became worse this afternoon. He went to his PCP and had labs drawn showing elevated lipase, and was told to come to the ED. On admission he had persistent pain, although improved with Dilaudid. He denies any alcohol consumption. HOwever he did admits today to his nurse that he drinks non-alcoholic [place] regularly. He has been on a low-fat diet from his GI doctor, but notes he has been a little less compliant with it recently. Discussed pt case with pt's GI yesterday. He explained that he would make no further changes in current plan of care but if sxs did not improve and liver enzymes were worse today to transfer him to [facility] and he would assist in getting pt a bed. Pt is feeling better today and denies abd pain but still requesting IV pain meds. Narcotic pain meds changed to PO and clear liquid diet started. Bili increased at 2.80, LFT's improved but still elevated. PETH lab ordered per GI request and CDT ordered today. Will advance diet as tolerated. Will recommend at d/c to avoid even non-alcoholic drinks as they do contain some alcohol. Will repeat Lipase in AM. US and CT show no billiary dilation. Hepatitis panel ordered. Pt denies CP, SOB, abd pain, N/V/D. - Review of Systems Constitutional: No Fever, No Chills Eyes: No Symptoms Ears, Nose, & Throat: No Symptoms Respiratory: No Cough, No Short Of Breath Cardiac: No Chest Pain, No Edema, No Syncope Abdominal/Gastrointestinal: No Abdominal Pain, No Nausea, No Vomiting, No Diarrhea Genitourinary Symptoms: No Dysuria Musculoskeletal: No Back Pain, No Neck Pain Skin: No Rash Neurological: No Dizziness, No Focal Weakness, No Sensory Changes Psychological: No Symptoms Endocrine: No Symptoms Hematologic/Lymphatic: No Symptoms Immunological/Allergic: No Symptoms Objective Exam General Appearance: no apparent distress, alert Neurologic Exam: alert, oriented x 3, cooperative, normal mood/affect, nml cerebellar function, sensation nml, No motor deficits Skin Exam: normal color, warm, dry Eye Exam: PERRL, EOMI, eyes nml inspection Ears, Nose, Throat Exam: normal ENT inspection, pharynx normal, moist mucous membranes Neck Exam: normal inspection, non-tender, supple, full range of motion Respiratory Exam: normal breath sounds, lungs clear, No respiratory distress Cardiovascular Exam: regular rate/rhythm, normal heart sounds Gastrointestinal/Abdomen Exam: soft, No tenderness, No mass Extremity Exam: normal inspection, normal range of motion Back Exam: normal inspection, normal range of motion, No CVA tenderness, No vertebral tenderness Male Genitalia Exam: deferred Rectal Exam: deferred Objective Data Vital Signs: Vital Signs - 24 hr Temp Pulse Resp BP Pulse Ox 08/05/24 08:00 18 08/05/24 07:31 97.3 F 71 17 130/80 95 08/05/24 04:00 17 08/05/24 03:40 97.4 F 69 17 121/76 97 08/05/24 00:00 17 08/04/24 23:56 97.8 F 70 17 131/75 96 08/04/24 19:52 97.9 F 79 17 136/80 94 L 08/04/24 19:22 16 08/04/24 16:00 97.7 F 71 16 139/64 94 L 08/04/24 12:00 97.3 F 69 18 151/88 97 Pain Assessment - Last Documented Pain Intensity 7 Pain Scale Used 0-10 Pain Scale Intake and Output: Intake & Output 08/02/24 08/03/24 08/04/24 08/05/24 11:59 11:59 11:59 11:59 Intake Total 341 1924 Balance 341 1924 Weight 106.3 kg Lab Results: Lab Results-Last 24 Hours 08/04/24 08/04/24 08/05/24 Range/Units 12:08 20:44 03:12 WBC (4.23-9.07) x10^3/uL RBC (4.63-6.08) x10^6/uL Hgb (13.7-17.5) g/dL Hct (40.1-51.0) % MCV (79.0-92.2) fL MCH (25.7-32.2) pg MCHC (32.3-36.5) g/dL RDW (11.6-14.4) % Plt Count (163-337) x10^3/uL MPV (9.4-12.4) fL Sodium (135-145) mmol/L Potassium (3.5-5.1) mmol/L Chloride (98-107) mmol/L Carbon Dioxide (22-30) mmol/L Anion Gap (5-15) MEQ/L BUN (9-20) mg/dL Creatinine (0.66-1.25) mg/dL Estimated GFR ML/MIN Glucose (74-106) mg/dL POC Glucometer 118 H 121 H 124 H (74 to 106) mg/dL Calcium (8.4-10.2) mg/dL Total Bilirubin (0.2-1.3) mg/dL AST (17-59) U/L ALT (0-50) U/L Alkaline Phosphatase (38-126) U/L Serum Total Protein (6.3-8.2) g/dL Albumin (3.5-5.0) g/dL 08/05/24 08/05/24 08/05/24 Range/Units 05:46 05:46 08:39 WBC 6.0 (4.23-9.07) x10^3/uL RBC 4.57 L (4.63-6.08) x10^6/uL Hgb 12.9 L (13.7-17.5) g/dL Hct 37.9 L (40.1-51.0) % MCV 82.9 (79.0-92.2) fL MCH 28.2 (25.7-32.2) pg MCHC 34.0 (32.3-36.5) g/dL RDW 14.7 H (11.6-14.4) % Plt Count 248 (163-337) x10^3/uL MPV 9.0 L (9.4-12.4) fL Sodium 135 (135-145) mmol/L Potassium 3.9 (3.5-5.1) mmol/L Chloride 98 (98-107) mmol/L Carbon Dioxide 28 (22-30) mmol/L Anion Gap 13.2 (5-15) MEQ/L BUN 13 (9-20) mg/dL Creatinine 0.89 (0.66-1.25) mg/dL Estimated GFR 109.1 ML/MIN Glucose 123 H (74-106) mg/dL POC Glucometer 129 H (74 to 106) mg/dL Calcium 9.5 (8.4-10.2) mg/dL Total Bilirubin 2.80 H (0.2-1.3) mg/dL AST 545 H (17-59) U/L ALT 519 H (0-50) U/L Alkaline Phosphatase 183 H (38-126) U/L Serum Total Protein 7.2 (6.3-8.2) g/dL Albumin 4.2 (3.5-5.0) g/dL Radiology Exams: Radiology Procedures Category Date Time Status ABDOMEN AND PELVIS W CONTRAST [CT] Stat Exams 08/03/24 19:45 Completed US ABDOMEN LIMITED [ABDOMINAL-LIMITED] [US] Routine Exams 08/04/24 12:08 Completed Assessment/Plan (1) Acute pancreatitis Current Visit: Yes Status: Acute Assessment & Plan: - CT abd/pelvis - tele - IV Zosyn - Continue Creon - Start clear liquid diet- advance diet as tolerated - Narcotic pain meds changed to PO - CDT, PETH lab test ordered - IVF - Avoid non- alcoholic beer Op - recheck Lipase in AM - Discussed Pt case with GI at [facility] 08/04/24 - CBC, CMP reviewed - Bili 2.80- trend Code(s): K85.90 - ACUTE PANCREATITIS WITHOUT NECROSIS OR INFECTION, UNSP (2) Duodenitis Current Visit: Yes Status: Acute Assessment & Plan: - as seen on CT abd/ pelvis reviewed Code(s): K29.80 - DUODENITIS WITHOUT BLEEDING (3) Transaminitis Current Visit: No Status: Acute Assessment & Plan: - AST 545, ALT 519- improving today from admission- trend - US reviewed - Hepatitis panel Code(s): R74.01 - ELEVATION OF LEVELS OF LIVER TRANSAMINASE LEVELS (4) GERD (gastroesophageal reflux disease) Current Visit: No Status: Chronic Assessment & Plan: - continue protonix Code(s): K21.9 - GASTRO-ESOPHAGEAL REFLUX DISEASE WITHOUT ESOPHAGITIS (5) Obesity (BMI 30-39.9) Current Visit: Yes Status: Chronic Assessment & Plan: - advised ADA diet and exercise control VTE: Heparin PPI: Protonix Next of KIN: D/C plan: 1-2 days Code status: Full Code(s): E66.9 - OBESITY, UNSPECIFIED
[2024-08-05] MEDS: NORCO 5/325 MG PO PRN (11:26)
[2024-08-05] MEDS ORDERED: NON-FORMULARY ITEM (Lipase/Protease/Amylase [Creon Dr 36,000 Unit Capsule] 1 EACH Capsule. PO SCH (12:00)
[2024-08-05] MEDS ORDERED: MEDICATION INTERVENTION MC SCH (12:30)
[2024-08-05] MEDS: ZENPEP DR 5,000 UNIT CAPSULE PO ONE (12:39)
[2024-08-05] MEDS: PATIENT OWN MEDICATION PO PRN (17:23)
[2024-08-05] MEDS: PATIENT OWN MEDICATION PO SCH (19:30)
[2024-08-05] MEDS: HEPARIN 5000 UNITS/0.5 ML (HIGH RISK MED) SQ SCH (21:03)
[2024-08-06 05:49] LABS: Hematocrit 40.8 % (40.1-51.0); Hemoglobin 13.9 g/dL (13.7-17.5); Mean Cell Volume 84.1 fL (79.0-92.2); Mean Corpuscular Hemoglobin 28.7 pg (25.7-32.2); Mean Corpuscular Hgb Concent. 34.1 g/dL (32.3-36.5); Mean Platelet Volume 8.9 fL (9.4-12.4); Platelet Count 231 x10^3/uL (163-337); Red Blood Count 4.85 x10^6/uL (4.63-6.08); Red Cell Distribution Width 14.5 % (11.6-14.4); White Blood Count 4.8 x10^3/uL (4.23-9.07)
[2024-08-06 06:17] LABS: ALBUMIN 4.3 g/dL (3.5-5.0); ANION GAP 14.1 MEQ/L (5-15); Calcium 9.8 mg/dL (8.4-10.2); Creatinine 1 0.79 mg/dL (0.66-1.25); Total Protein 7.4 g/dL (6.3-8.2)
[2024-08-06 07:33] VITALS: RESP 16
[2024-08-06 08:08] LABS: HBsAg Screen Negative (Negative); HCV Ab Non Reactive (Non Reactive); Hep B Core Ab, IgM Negative (Negative)
--- NOTE | 2024-08-06 08:21 | PCM.DS ---
Discharge Summary Date of Admission: 08/03/24 22:18 Date of Discharge: 08/06/24 Admitting Physician: STEPHANIE DUNCAN MD Primary Care Provider: DORA LEE Allergies Allergies No Known Drug Allergies Allergy (Verified 08/03/24 18:10) Hospital Summary - Hospital Course Hospital Course: 08/05/24 44-year-old man with history of recurrent pancreatitis, with secondary diabetes and exocrine insufficiency. He presented on 08/04/24 with recurrent epigastric pain that he says is similar to his prior pancreatitis pain. Patient has had 6 episodes of pancreatitis since May 2023. Cause is unclear, but he was noted to have some gallbladder sludge, so underwent cholecystectomy August to prevent further episodes. He has not had any further flares since then until today. He has had enough chronic damage to require pancreatic enzymes limitation and initiation of insulin therapy. He also has a chronic pseudocyst that has been slowly improving. He follows with GI at . On 08/03 he had the onset of recurrent epigastric pain, not associated with nausea and vomiting, progressively worsening over 24 hours. At first he hoped it resolved itself, but became worse this afternoon. He went to his PCP and had labs drawn showing elevated lipase, and was told to come to the ED. On admission he had persistent pain, although improved with Dilaudid. He denies any alcohol consumption. HOwever he did admits today to his nurse that he drinks non-alcoholic Darling regularly. He has been on a low-fat diet from his GI doctor, but notes he has been a little less compliant with it recently. Discussed pt case with pt's GI yesterday. He explained that he would make no further changes in current plan of care but if sxs did not improve and liver enzymes were worse today to transfer him to [facility] [place] and he would assist in getting pt a bed. Pt is feeling better today and denies abd pain but still requesting IV pain meds. Narcotic pain meds changed to PO and clear liquid diet started. Bili increased at 2.80, LFT's improved but still elevated. PETH lab ordered per GI request and CDT ordered today. Will advance diet as tolerated. Will recommend at d/c to avoid even non- alcoholic drinks as they do contain some alcohol. Will repeat Lipase in AM. US and CT show no billiary dilation. Hepatitis panel ordered. Pt denies CP, SOB, abd pain, N/V/D. 08/06/24 Pt resting in bed. He would like to d/c today. He is feeling much better today. Lipase, and LFT's improved. Diet advanced to Consistent carb. IF able to tolerate may d/c today. Will continue to follow PETH, Hep panel and CDT. Will sent results to GI when back. IVF and IV antibiotics stopped as pt lost IV last night and is refusing a new one. He denies CP, SOB, abd pain, N/V/D. - Vitals & Intake/Output Vital Signs: Vital Signs Temperature 97.5 F 08/06/24 07:32 Pulse Rate 62 08/06/24 07:32 Respiratory Rate 16 08/06/24 07:32 Blood Pressure 119/70 08/06/24 07:32 O2 Sat by Pulse Oximetry 97 08/06/24 07:32 Intake & Output: Intake & Output 08/03/24 08/04/24 08/05/24 08/06/24 11:59 11:59 11:59 11:59 Intake Total 341 1923 2025 Balance 341 1923 2025 Weight 106.3 kg - Lab Result Diagrams: 08/06/24 05:45 08/06/24 05:45 Lab Results-Last 24 Hrs: Lab Results-Last 24 Hours 08/05/24 08/05/24 08/05/24 Range/Units 08:39 16:40 20:38 WBC (4.23-9.07) x10^3/uL RBC (4.63-6.08) x10^6/uL Hgb (13.7-17.5) g/dL Hct (40.1-51.0) % MCV (79.0-92.2) fL MCH (25.7-32.2) pg MCHC (32.3-36.5) g/dL RDW (11.6-14.4) % Plt Count (163-337) x10^3/uL MPV (9.4-12.4) fL Sodium (135-145) mmol/L Potassium (3.5-5.1) mmol/L Chloride (98-107) mmol/L Carbon Dioxide (22-30) mmol/L Anion Gap (5-15) MEQ/L BUN (9-20) mg/dL Creatinine (0.66-1.25) mg/dL Estimated GFR ML/MIN Glucose (74-106) mg/dL POC Glucometer 129 H 237 H 165 H (74 to 106) mg/dL Calcium (8.4-10.2) mg/dL Total Bilirubin (0.2-1.3) mg/dL AST (17-59) U/L ALT (0-50) U/L Alkaline Phosphatase (38-126) U/L Serum Total Protein (6.3-8.2) g/dL Albumin (3.5-5.0) g/dL Lipase (23-300) U/L 08/06/24 08/06/24 08/06/24 Range/Units 03:02 05:45 05:45 WBC 4.8 (4.23-9.07) x10^3/uL RBC 4.85 (4.63-6.08) x10^6/uL Hgb 13.9 (13.7-17.5) g/dL Hct 40.8 (40.1-51.0) % MCV 84.1 (79.0-92.2) fL MCH 28.7 (25.7-32.2) pg MCHC 34.1 (32.3-36.5) g/dL RDW 14.5 H (11.6-14.4) % Plt Count 231 (163-337) x10^3/uL MPV 8.9 L (9.4-12.4) fL Sodium 137 (135-145) mmol/L Potassium 4.0 (3.5-5.1) mmol/L Chloride 102 (98-107) mmol/L Carbon Dioxide 25 (22-30) mmol/L Anion Gap 14.1 (5-15) MEQ/L BUN 10 (9-20) mg/dL Creatinine 0.79 (0.66-1.25) mg/dL Estimated GFR 113.0 ML/MIN Glucose 173 H (74-106) mg/dL POC Glucometer 164 H (74 to 106) mg/dL Calcium 9.8 (8.4-10.2) mg/dL Total Bilirubin 1.00 (0.2-1.3) mg/dL AST 203 H (17-59) U/L ALT 380 H (0-50) U/L Alkaline Phosphatase 183 H (38-126) U/L Serum Total Protein 7.4 (6.3-8.2) g/dL Albumin 4.3 (3.5-5.0) g/dL Lipase 395 H (23-300) U/L 08/06/24 Range/Units 07:29 WBC (4.23-9.07) x10^3/uL RBC (4.63-6.08) x10^6/uL Hgb (13.7-17.5) g/dL Hct (40.1-51.0) % MCV (79.0-92.2) fL MCH (25.7-32.2) pg MCHC (32.3-36.5) g/dL RDW (11.6-14.4) % Plt Count (163-337) x10^3/uL MPV (9.4-12.4) fL Sodium (135-145) mmol/L Potassium (3.5-5.1) mmol/L Chloride (98-107) mmol/L Carbon Dioxide (22-30) mmol/L Anion Gap (5-15) MEQ/L BUN (9-20) mg/dL Creatinine (0.66-1.25) mg/dL Estimated GFR ML/MIN Glucose (74-106) mg/dL POC Glucometer 167 H (74 to 106) mg/dL Calcium (8.4-10.2) mg/dL Total Bilirubin (0.2-1.3) mg/dL AST (17-59) U/L ALT (0-50) U/L Alkaline Phosphatase (38-126) U/L Serum Total Protein (6.3-8.2) g/dL Albumin (3.5-5.0) g/dL Lipase (23-300) U/L Micro Results-Entire Visit: Microbiology 08/03/24 18:26 Urine Culture - Final Clean Catch Midstream NO GROWTH Accuchecks Date 08/06/24 Date 08/05/24 Date 08/05/24 Time 07:32 Time 20:45 Time 16:44 - Radiology Exams Ordered Rad Exams-Entire Visit: Radiology Procedures Category Date Time Status US ABDOMEN LIMITED [ABDOMINAL-LIMITED] [US] Routine Exams 08/04/24 12:08 Completed Discharge Exam General Appearance: no apparent distress, alert Neurologic Exam: alert, oriented x 3, cooperative, normal mood/affect, nml cerebellar function, sensation nml, No motor deficits Eye Exam: PERRL, EOMI, eyes nml inspection Ears, Nose, Throat Exam: normal ENT inspection, pharynx normal, moist mucous membranes Neck Exam: normal inspection, non-tender, supple, full range of motion Respiratory Exam: normal breath sounds, lungs clear, No respiratory distress Cardiovascular Exam: regular rate/rhythm, normal heart sounds Gastrointestinal/Abdomen Exam: soft, No tenderness, No mass Male Genitalia Exam: deferred Rectal Exam: deferred Back Exam: normal inspection, normal range of motion, No CVA tenderness, No vertebral tenderness Extremity Exam: normal inspection, normal range of motion Skin Exam: normal color, warm, dry Final Diagnosis/Problem List - Final Discharge Diagnosis/Problem (1) Acute pancreatitis Current Visit: Yes Status: Acute Code(s): K85.90 - ACUTE PANCREATITIS WITHOUT NECROSIS OR INFECTION, UNSP (2) Duodenitis Current Visit: Yes Status: Acute Code(s): K29.80 - DUODENITIS WITHOUT BLEEDING (3) Transaminitis Current Visit: No Status: Acute Code(s): R74.01 - ELEVATION OF LEVELS OF LI MICAELA TRANSAMINASE LEVELS (4) GERD (gastroesophageal reflux disease) Current Visit: No Status: Chronic Code(s): K21.9 - GASTRO-ESOPHAGEAL REFLUX DISEASE WITHOUT ESOPHAGITIS (5) Obesity (BMI 30-39.9) Current Visit: Yes Status: Chronic Assessment & Plan: (1) Acute pancreatitis Current Visit: Yes Status: Acute Assessment & Plan: - CT abd/pelvis - tele - IV Zosyn - Continue Creon - Start clear liquid diet- advance diet as tolerated - Narcotic pain meds changed to PO - CDT, PETH lab test ordered - IVF - Avoid non- alcoholic beer Op - recheck Lipase in AM - Discussed Pt case with GI at [facility] 08/04/24 - CBC, CMP reviewed - Bili 2.80- trend - Continue Creon as now on clear liquid diet 08/06 - Lipase 395 - LFT improved - Bili 1.0 - CBC, CMP reviewed - Denies Abd pain, N/V/D - advance diet from Clears to Carb consistent - IVF and IV antibiotics stopped as pt IV gone and refuses new IV per nursing Code(s): K85.90 - ACUTE PANCREATITIS WITHOUT NECROSIS OR INFECTION, UNSP (2) Duodenitis Current Visit: Yes Status: Acute Assessment & Plan: - as seen on CT abd/ pelvis reviewed Code(s): K29.80 - DUODENITIS WITHOUT BLEEDING (3) Transaminitis Current Visit: No Status: Acute Assessment & Plan: - AST 545, ALT 519- improving today from admission- trend - US reviewed - Hepatitis panel 08/06 - AST 203, ALT 380- improved Code(s): R74.01 - ELEVATION OF LEVELS OF LIVER TRANSAMINASE LEVELS (4) GERD (gastroesophageal reflux disease) Current Visit: No Status: Chronic Assessment & Plan: - continue protonix Code(s): K21.9 - GASTRO-ESOPHAGEAL REFLUX DISEASE WITHOUT ESOPHAGITIS (5) Obesity (BMI 30-39.9) Current Visit: Yes Status: Chronic Assessment & Plan: - advised ADA diet and exercise control Code(s): E66.9 - OBESITY, UNSPECIFIED (6) Type II diabetes mellitus Current Visit: Yes Status: Chronic Assessment & Plan: - A1C 8.37 - Accuchecks ac/hs, humalog s/s - Discharge Discharge Date: 08/06/24 Disposition: Home, Self-Care Condition: Stable Prescriptions: New Hydrocodone/Acetaminophen [Hydrocodone-Acetamin 5-325 mg] 1 tab PO Q6HPRN PRN 3 Days #12 tablet MDD 4 PRN Reason: Pain Continue PANTOPRAZOLE 40 mg Tablet [Protonix 40MG Tablet] 40 mg PO QAM #30 tab Lipase/Protease/Amylase [Monica Sanabria 36,000 Unit Capsule] 2 cap PO TIDWMEALS Insulin NPH Hum/Reg Insulin Hm [Relion Novolin 70-30 Flexpen] 10 unit .ROUTE BID Insulin Aspart Prot/Insuln Asp [Relion Novolog Mix 70-30 Flxpn] 10 unit SQ TID Ropinirole HCl 0.5 mg [Requip 0.5 MG] 0.5 tab PO HS Additional Instructions: Follow up with GI outpatient. Follow up with: DORA LEE MD [Primary Care Provider] - (Call and schedule follow up appointment on Wednesday )
[2024-08-06 09:49] LABS: Hep A Ab, IgM Negative (Negative)
[2024-08-06 11:14] VITALS: BP 96/61; PULSE 73; TEMP 97.6; O2SAT 96
== END 2024-08-06 11:45 | disposition home or self-care (01) ==
LOC: ED 18:02 → MED SURG 22:18
PROVIDERS: ADMIT Internal Medicine; ATTEND Internal Medicine
DX: K85.90 Acute pancreatitis without necrosis or infection, unspecified (principal); K29.80 Duodenitis without bleeding; R74.01 Elevation of levels of liver transaminase levels; K21.9 Gastro-esophageal reflux disease without esophagitis; I10 Essential (primary) hypertension; E66.9 Obesity, unspecified; E11.9 Type 2 diabetes mellitus without complications; Z79.899 Other long term (current) drug therapy
CPT/HCPCS: 36000; 36415; 74177; 76705; 80053; 80074; 80321; 81001; 82150; 82373; 82947; 83036; 83690; 84484; 85025; 85027; 87086; 93005; 96360; 96374; 96375; 96376; 99285; Q3014; 93268; J1171; J1817; J2060; J2405; A9270-GY; G0378

== ENCOUNTER 2025-01-17 09:09 | Day surgery (SDC) | payer BC, OTHER ==
[2025-01-17] MEDS ORDERED: dexAMETHasone sodium phosphate IJ ONE (09:10)
[2025-01-17] MEDS ORDERED: Sodium Chloride 0.9(Preservative Free) 10 ML IJ ONE (09:10)
[2025-01-17] MEDS ORDERED: propofoL IV ONE ×2 (10:15→10:23)
[2025-01-17] MEDS ORDERED: Lactated Ringers 1,000 ML IV ONE (10:36)
[2025-01-17] MEDS ORDERED: MORPHINE SULFATE 2 MG INJ ONE (10:51)
--- NOTE | 2025-01-17 11:41 | XRAY ---
57 seconds of fluoroscopy used in surgery for a left L3-L5 transforaminal SHAHANA.
--- NOTE | 2025-01-17 11:43 | XRAY ---
Indication: Left L3-L5 transforaminal SHAHANA. Intraoperative fluoroscopy provided for 57 seconds. 5 digital spot images submitted for interpretation demonstrates posterior needle tips projecting over expected left L3 and L4 nerve roots. Small moderate contrast injected for needle tip placement. Correlate with intraoperative findings/report. Incidental bilateral L4-L5 fusion hardware.
== END 2025-01-17 11:10 | disposition home or self-care (01) ==
LOC: SDC-PAIN 09:09
PROVIDERS: ATTEND Psychiatry & Neurology Pain Medicine
DX: M54.16 Radiculopathy, lumbar region (principal); E11.9 Type 2 diabetes mellitus without complications
CPT/HCPCS: 64483; 64484; 72100; 82947; J1100; J2270; J2704; Q9966